=== PATIENT | male | born 1945 | race Caucasian/White ===

== ENCOUNTER 2021-12-29 20:31 | Inpatient (IN) ==
[2021-12-29] MEDS ORDERED: SODIUM CHLORIDE 0.9% 1000ML 2,000 ML IV ONE (20:53)
--- NOTE | 2021-12-29 20:59 | Emergency Department Note ---
Impression & Plan COVID-19, Acute dehydration, Atrial flutter, Generalized weakness ED Provider Note Name: MARIPOSA MERCEDES Age: 76 Sex: M Arrives Via: Walk-In Informant: Patient (poor historian), Daughter ED Provider: Nish Han MD Chief Complaint: Illness Impression: As per impressions above Medical Decision Makin-year-old gentleman with extensive cardiac history along with hypertension, dyslipidemia, hypothyroid arrives for evaluation of acute altered mental status and weakness of the last 5 days. He has been sick with Covid-like symptoms for the last 10 days in the setting of multiple family members also having Covid. Patient has not been tested for Covid as of yet. On exam patient is severely dehydrated appearing and quite somnolent/encephalopathic. IV established and fluid started along with labs, EKG, chest x-ray. Chest x-ray with questionable viral pattern throughout though not too severe. EKG is atrial flutter with a rate of around 90. This is new compared to his EKG in the [facility] system. Per daughter patient has never been in A. fib/flutter before and is not on any anticoagulation. Covid testing was positive here. Labs returned with hemoglobin 19, BUN 50s both consistent with significant dehydration as is the bicarb of 18. After 1 L of fluids patient is already starting to improve and has started answering questions better. Further fluids ordered. Without falls nor focal neurologic deficits will hold off on CT head given his improvement at this time. Given the severity of initial findings and has lab findings I do not think it would be reasonable to discharge him home especially given the new onset atrial flutter. Patient and daughter are comfortable with this plan and hospitalist was consulted for further management. He is not hypoxic and last steroids were not started. As he has been hospitalized and symptoms have been going on for least 10 days I do not feel starting monoclonal antibodies would be indicated at this time. We will hold off at this time from anticoagulation and defer to hospital service. Prior Medical Record and Triage/Nursing Notes reviewed by Me Additional history obtained from epic review and daughter Differentials:Infection, dehydration, metabolic abnormality, hypo/hyperglycemia, electrolyte disturbance, anemia, hypoxia, cardiac sources, intracerebral event, toxicologic, neurologic, as well as other pathologies. Vital Signs: reviewed and remarkable for no significant abnormalities Interventions: Normal saline bolus 2 L Labs:Reviewed and remarkable for no significant abnormalities Imagin view chest x-ray reviewed by me shows bilateral mild viral pattern without effusion nor lobar infiltrate EKG:Per My Interpretation: Indication AMS: Atrial Flutter 96 bpm, qtc 502 with PVC. No Ischemia. Compared to EKG 04/29/20 he is no longer in NSR. Cardiac/Tele Monitoring: Cardiac Monitoring: An Order was placed for continuous cardiac monitoring. The monitor shows a rate of 90 with a atrial flutter rhythm. Consults:Dr Yvonne Mccoy hospitalist Plan: Disposition:Hospitalization. Condition: Fair History of Present Illness:-year-old male arrives for general weakness. Patient has been ill for the last 10 days. This all started around the same time that the rest of his family all had Covid. Patient initially with cough, fatigue and fevers. Over the last 5 days rapid worsening of weakness, confusion, somnolence, decreased appetite, lack of energy. Associated to diffuse body aches and fatigue. He has no headache, shortness of breath, cough, fevers, abdominal pain, urinary symptoms, bowel symptoms, leg swelling, calf pain or other symptoms. Daughter notes he has been taking his medications. He has not been taking any new medication. Any exertion makes worse. Rest seems to make slightly better. Patient was vaccinated versus Covid but did not have Covid testing for this episode. He has had no falls, trauma, injuries. He denies any headache nor neck stiffness at this time. ROS: See above HPI for pertinent positives & negatives. A total of 10 systems reviewed and were otherwise negative. Past Medical History:Dyslipidemia, hypertension, GERD, hypothyroidism, CAD, BPH, carotid stenosis, urethral/prostate issues, prostate cancer Past Surgical History:Hand surgery, prostate surgery, CABG Family History:See Below Social History:See Below Home Medications:See Below Allergies:IV dye, niacin, statins Vitals:Blood Pressure: 139/93, Pulse 93, RR 21, T 36.3C, O2 97% on RA Physical Exam: GENERAL: Patient is elderly, frail, dehydrated appearing and in no acute distress. Cachectic EYES: No scleral icterus, unremarkable pupils. ENT: Mucous membranes dry, no nasal congestion. NECK: No masses appreciated, nomeningismus, trachea is midline. RESPIRATORY: No dyspnea. Clear to auscultation and equal bilaterally. No wheeze, no rhonchi. CARDIOVASCULAR: Regular rate and rhythm.No murmurs, rubs, gallops appreciated. GASTROINTESTINAL: Abdomen soft, non-tender, no peritonitis.Bowel sounds posi tive.No masses appreciated. BACK: No midline tenderness, no CVA tenderness EXTREMITIES: Normal motion all extremities, no cyanosis, no edema. NEUROLOGIC: Somnolent, slow to answer questions, severe weakness on trying to sit up. No focal weakness appreciated SKIN: Poor skin turgor, No rash, no jaundice, no diaphoresis. PSYCH: Appropriate GCS: 15 ED Course: Times/Reassessments: Patient much improved with IV fluids though still weak and tired appearing. Would no longer say he is encephalopathic but is still somewhat somnolent. Nish Han MD Past Med/Surg History Social History Smoking Status: Never smoker Preferred Language: Yi Feels Safe at Home: Yes Allergies Allergies Allergy/AdvReac Type Severity Reaction Status Date / Time niacin Allergy Mild RASH Verified 12/29/21 21:31 Iodinated Contrast Media Allergy Unknown UNKNOWN Unverified 12/29/21 21:31 atorvastatin [From Lipitor] AdvReac Unknown INTOLERANT Verified 12/29/21 23:14 Home Meds Home Medications Medication Instructions Recorded Confirmed Aspirin Enteric Coated (Ecotrin Or 81 mg PO DAILY #0 04/11/10 Generic *) Ezetimibe (Zetia) 10 mg PO DAILY #0 04/11/10 Gemfibrozil (Lopid) 1,200 mg PO DAILY #0 04/11/10 Isosorbide Mononitrate Ext Rel 120 mg PO DAILY #0 04/11/10 (Imdur Ext Rel) Metoprolol Succ (Toprol Xl) 12.5 mg PO QPM #30 04/11/10 (Toprol-Xl) Multivitamin 1 tab PO DAILY #0 04/11/10 Acetaminophen (Tylenol) 500 mg PO Q4 PRN #0 tab 12/15/13 Amlodipine (Norvasc) 5 mg PO BID #0 tab 12/15/13 CHOLECALCIFEROL (Vitamin D) 2,000 inter.unit PO DAILY #0 tab 12/15/13 Fenofibrate (Tricor) 200 mg PO DAILY #0 cap 12/15/13 Fish Oil ([place]-3) 3,000 mg PO DAILY #0 cap 12/15/13 Nitroglycerin (Nitrostat) 0.4 mg UT PRN #0 btl 12/15/13 OMEPRAZOLE (PRILOSEC) 20 mg PO DAILY #0 cap 12/15/13 COENZYME Q10 (UBIDECARENONE) 1 cap PO BID #0 09/17/16 (COQ10) Clopidogrel (Plavix) 75 mg PO DAILY #0 tab 09/17/16 Previous Rx's Medication Instructions Recorded Alirocumab (Praluent) 1 dose SC every 2 weeks 30 Days #0 08/05/16 FINASTERIDE (PROSCAR) 5 mg PO DAILY 30 Days #30 tab 08/05/16 LEVOTHYROXINE SODIUM (SYNTHROID) 75 mcg PO DAILY 30 Days #45 tab 08/05/16 Results & Data (ED) Vital Signs Vital Signs - 24 hr 12/29/21 20:35 12/29/21 21:34 12/30/21 00:36 Temperature 36.3 C L Temperature Source Temporal Artery Scan Pulse Rate 93 H Pulse Rate [Apical] 93 H 89 Pulse Rhythm Regular Pulse Rhythm [Apical] Regular Pulse Strength Normal Pulse Strength [Apical] Normal Respiratory Rate 21 18 Respiratory Effort / Characteristics Non-Labored Spontaneous Non-Labored Spontaneous Respiratory Depth Normal Normal Respiratory Pattern Regular Regular Blood Pressure 139/93 Blood Pressure [Left Arm] 143/97 H 130/96 Blood Pressure Mean 108 Blood Pressure Mean [Left Arm] 112 107 Blood Pressure Position Sitting Blood Pressure Position [Left Arm] Semi-fowlers Pulse Oximetry 97 96 97 Oxygen Delivery Method Room Air Room Air Sepsis Recent Fever Within 48 Hours No Sepsis New/Unexplained Change in Mental Status Yes Sepsis Action Taken by Nursing No Action Required Laboratory Data Result diagrams: 12/29/21 20:30 12/29/21 20:30 Lab Results 12/29/21 12/29/21 12/29/21 Range/Units 20:30 20:30 20:30 WBC 9.87 (4.8-10.8) K/uL RBC 6.14 H (4.7-6.1) M/uL Hgb 19.2 H (14.0-18.0) g/dL Hct 56.1 H (42-52) % MCV 91.4 (80-100) fL MCH 31.3 (25-34) pg MCHC 34.2 (32-36) g/dL RDW Std Deviation 48.7 H (36.4-46.3) fL RDW Coeff of Cullen 14.5 (11.5-14.5) % Plt Count 147 (130-400) K/uL MPV 13.2 H (7.4-10.4) fL Immature Gran % (Auto) 0.6 % Neut % (Auto) 66.1 % Lymph % (Auto) 22.4 % [place] % (Auto) 10.6 % Eos % (Auto) 0.1 % Baso % (Auto) 0.2 % Neut # (Auto) 6.52 H (1.4-6.5) K/uL Lymph # (Auto) 2.21 (1.2-3.4) K/uL [place] # (Auto) 1.05 H (0.11-0.59) K/uL Eos # (Auto) 0.01 (0-0.5) K/uL Baso # (Auto) 0.02 (0-0.2) K/uL Immature Gran # (Auto) 0.06 H (0.00-0.02) K/uL Platelet Estimate Decreased L (Normal) PT Cancelled INR Cancelled Sodium 142 (136-145) mmol/L Potassium 4.5 (3.5-5.1) mmol/L Chloride 107 (98-107) mmol/L Carbon Dioxide 18 L (21-32) mmol/L Anion Gap 17 H (3-11) BUN 56 H (6-23) mg/dl Creatinine 1.54 H (0.6-1.4) mg/dl Est Cr Clr Drug Dosing 36.8 ml/min Est GFR ( Amer) 49.4 ml/min Est GFR (Non-Af Amer) 42.6 ml/min BUN/Creatinine Ratio 36.4 H (10-20) Glucose 136 H (70-99(Fasting)) mg/dl POC Glucose (70-99) mg/dl Calcium 9.9 (8.5-10.1) mg/dl Magnesium 2.8 H (1.7-2.4) mg/dl Total Bilirubin 1.1 H (0.2-1.0) mg/dl Direct Bilirubin 0.3 H (0-0.2) mg/dl AST 44 H (13-39) U/L ALT 37 (7-52) U/L Alkaline Phosphatase 86 (34-104) U/L Troponin I < 0.03 (0-0.04) ng/ml Total Protein 8.2 (6.0-8.3) gm/dl Albumin 4.4 (3.4-5.0) gm/dl Lipase 63 (11-82) U/L Procalcitonin (0-0.5) ng/ml TSH (0.300-4.500) uIu/ml SARS-CoV-2, RNA, NAAT (NEGATIVE) 12/29/21 12/29/21 12/29/21 Range/Units 20:30 20:30 21:20 WBC (4.8-10.8) K/uL RBC (4.7-6.1) M/uL Hgb (14.0-18.0) g/dL Hct (42-52) % MCV (80-100) fL MCH (25-34) pg MCHC (32-36) g/dL RDW Std Deviation (36.4-46.3) fL RDW Coeff of Cullen (11.5-14.5) % Plt Count (130-400) K/uL MPV (7.4-10.4) fL Immature Gran % (Auto) % Neut % (Auto) % Lymph % (Auto) % [place] % (Auto) % Eos % (Auto) % Baso % (Auto) % Neut # (Auto) (1.4-6.5) K/uL Lymph # (Auto) (1.2-3.4) K/uL [place] # (Auto) (0.11-0.59) K/uL Eos # (Auto) (0-0.5) K/uL Baso # (Auto) (0-0.2) K/uL Immature Gran # (Auto) (0.00-0.02) K/uL Platelet Estimate (Normal) PT INR Sodium (136-145) mmol/L Potassium (3.5-5.1) mmol/L Chloride (98-107) mmol/L Carbon Dioxide (21-32) mmol/L Anion Gap (3-11) BUN (6-23) mg/dl Creatinine (0.6-1.4) mg/dl Est Cr Clr Drug Dosing ml/min Est GFR ( Amer) ml/min Est GFR (Non-Af Amer) ml/min BUN/Creatinine Ratio (10-20) Glucose (70-99(Fasting)) mg/dl POC Glucose (70-99) mg/dl Calcium (8.5-10.1) mg/dl Magnesium (1.7-2.4) mg/dl Total Bilirubin (0.2-1.0) mg/dl Direct Bilirubin (0-0.2) mg/dl AST (13-39) U/L ALT (7-52) U/L Alkaline Phosphatase (34-104) U/L Troponin I (0-0.04) ng/ml Total Protein (6.0-8.3) gm/dl Albumin (3.4-5.0) gm/dl Lipase (11-82) U/L Procalcitonin < 0.05 (0-0.5) ng/ml TSH 7.877 H (0.300-4.500) uIu/ml SARS-CoV-2, RNA, NAAT POSITIVE A* (NEGATIVE) 12/29/21 12/29/21 Range/Units 21:29 21:31 WBC (4.8-10.8) K/uL RBC (4.7-6.1) M/uL Hgb (14.0-18.0) g/dL Hct (42-52) % MCV (80-100) fL MCH (25-34) pg MCHC (32-36) g/dL RDW Std Deviation (36.4-46.3) fL RDW Coeff of Cullen (11.5-14.5) % Plt Count (130-400) K/uL MPV (7.4-10.4) fL Immature Gran % (Auto) % Neut % (Auto) % Lymph % (Auto) % [place] % (Auto) % Eos % (Auto) % Baso % (Auto) % Neut # (Auto) (1.4-6.5) K/uL Lymph # (Auto) (1.2-3.4) K/uL [place] # (Auto) (0.11-0.59) K/uL Eos # (Auto) (0-0.5) K/uL Baso # (Auto) (0-0.2) K/uL Immature Gran # (Auto) (0.00-0.02) K/uL Platelet Estimate (Normal) PT 11.0 INR 1.1 Sodium (136-145) mmol/L Potassium (3.5-5.1) mmol/L Chloride (98-107) mmol/L Carbon Dioxide (21-32) mmol/L Anion Gap (3-11) BUN (6-23) mg/dl Creatinine (0.6-1.4) mg/dl Est Cr Clr Drug Dosing ml/min Est GFR ( Amer) ml/min Est GFR (Non-Af Amer) ml/min BUN/Creatinine Ratio (10-20) Glucose (70-99(Fasting)) mg/dl POC Glucose 133 H (70-99) mg/dl Calcium (8.5-10.1) mg/dl Magnesium (1.7-2.4) mg/dl Total Bilirubin (0.2-1.0) mg/dl Direct Bilirubin (0-0.2) mg/dl AST (13-39) U/L ALT (7-52) U/L Alkaline Phosphatase (34-104) U/L Troponin I (0-0.04) ng/ml Total Protein (6.0-8.3) gm/dl Albumin (3.4-5.0) gm/dl Lipase (11-82) U/L Procalcitonin (0-0.5) ng/ml TSH (0.300-4.500) uIu/ml SARS-CoV-2, RNA, NAAT (NEGATIVE) Administered Medications Discontinued Medications Sodium Chloride (Nss 1000ml) 2,000 mls @ 999 mls/hr IV .Q2H1M ONE Stop: 12/29/21 22:53 Last Admin: 12/29/21 21:06 Dose: 999 mls/hr Documented by: [id number] Sodium Chloride (Nss 1000ml) 1,000 mls @ 999 mls/hr IV .Q1H1M ONE Stop: 12/29/21 23:24 Last Admin: 12/29/21 22:36 Dose: 999 mls/hr Documented by: [id number] Discharge Plan Visit Data Chief Complaint: Altered Mental Status Stated Complaint: NOT EATING, DISORIENTED, SLURRED SPEECH, CONFUSION ED Provider: Nish Han Discharge Problem: COVID-19, Acute dehydration, Atrial flutter, Generalized weakness Forms Stand Alone Forms: [employer] Prescriptions Prescriptions: No Action Aspirin Enteric Coated (Ecotrin Or Generic *) 81 MG ENTERIC COATED TAB 81 mg PO DAILY Qty: 0 RF: 0 Ezetimibe (Zetia) 10 MG tablet 10 mg PO DAILY Qty: 0 RF: 0 Gemfibrozil (Lopid) 600 MG tablet 1,200 mg PO DAILY Qty: 0 RF: 0 Isosorbide Mononitrate Ext Rel (Imdur Ext Rel) 60 MG EXT REL TAB 120 mg PO DAILY Qty: 0 RF: 0 Metoprolol Succ (Toprol Xl) (Toprol-Xl) 25 MG CLBRS-YKB-MAX 12.5 mg PO QPM Qty: 30 RF: 0 Multivitamin tablet 1 tab PO DAILY Qty: 0 RF: 0 Acetaminophen (Tylenol) 500 MG tablet 500 mg PO Q4 PRN (Reason: Pain or Fever) Qty: 0 RF: 0 Amlodipine (Norvasc) 5 MG tablet 5 mg PO BID Qty: 0 RF: 0 CHOLECALCIFEROL (Vitamin D) 1,000 INTER.UNIT tablet 2,000 inter.unit PO DAILY Qty: 0 RF: 0 Fenofibrate (Tricor) 200 MG capsule 200 mg PO DAILY Qty: 0 RF: 0 Fish Oil ([place]ber-3) 1 EA capsule 3,000 mg PO DAILY Qty: 0 RF: 0 Nitroglycerin (Nitrostat) 0.4 MG tablet 0.4 mg UT PRN Qty: 0 RF: 0 OMEPRAZOLE (PRILOSEC) 20 MG CONTR REL CAP 20 mg PO DAILY Qty: 0 RF: 0 LEVOTHYROXINE SODIUM (SYNTHROID) 50 MCG tablet 75 mcg PO DAILY 30 Days Qty: 45 RF: 0 FINASTERIDE (PROSCAR) 5 MG tablet 5 mg PO DAILY 30 Days Qty: 30 RF: 11 Alirocumab (Praluent) 75 MG/ML INJECTION 1 dose SC every 2 weeks 30 Days Qty: 0 RF: 0 COENZYME Q10 (UBIDECARENONE) (COQ10) 200 MG capsule 1 cap PO BID Qty: 0 RF: 0 Clopidogrel (Plavix) 75 MG tablet 75 mg PO DAILY Qty: 0 RF: 0 Referrals Referrals: Geoff Ríos MD [Physician] - Discharge Problem: Atrial flutter Qualifiers: Atrial flutter type: atypical Qualified Code(s): I48.4 - Atypical atrial flutter
[2021-12-29 21:15] LABS: Hematocrit (blood only) 56.1 % (42-52); Hemoglobin 19.2 g/dL (14.0-18.0); Mean Corpuscular Hemoglobin 31.3 pg (25-34); Mean Corpuscular Volume 91.4 fL (80-100); RDW Coefficient of Variation 14.5 % (11.5-14.5); RDW Standard Deviation 48.7 fL (36.4-46.3); Red Blood Count 6.14 M/uL (4.7-6.1); White Blood Count 9.87 K/uL (4.8-10.8)
[2021-12-29 21:26] LABS: Troponin I < 0.03 ng/ml (0-0.04)
[2021-12-29 21:29] LABS: Mean Corpuscular Hgb Conc 34.2 g/dL (32-36)
[2021-12-29 21:30] LABS: Basophils # (auto) 0.02 K/uL (0-0.2); Basophils % (auto) 0.2 %; Eosinophils # (auto) 0.01 K/uL (0-0.5); Eosinophils % (auto) 0.1 %; Immature Granulocytes # (auto) 0.06 K/uL (0.00-0.02); Immature Granulocytes % (auto) 0.6 %; Lymphocytes # (auto) 2.21 K/uL (1.2-3.4); Lymphocytes % (auto) 22.4 %; Mean Platelet Volume 13.2 fL (7.4-10.4); Monocytes # (auto) 1.05 K/uL (0.11-0.59); Monocytes % (auto) 10.6 %; Neutrophils # (auto) 6.52 K/uL (1.4-6.5); Neutrophils % (auto) 66.1 %; Platelet Count 147 K/uL (130-400); Platelet Estimate Decreased (Normal)
[2021-12-29 21:52] LABS: INR 1.1 (0.9-1.1)
[2021-12-29 21:59] LABS: Alanine Aminotransferase 37 U/L (7-52); Albumin Level 4.4 gm/dl (3.4-5.0); Alkaline Phosphatase 86 U/L (34-104); Anion Gap 17 (3-11); Aspartate Aminotransferase 44 U/L (13-39); BUN Creatinine Ratio 36.4 (10-20); Bilirubin Direct 0.3 mg/dl (0-0.2); Bilirubin,Total 1.1 mg/dl (0.2-1.0); Blood Urea Nitrogen 56 mg/dl (6-23); Calcium 9.9 mg/dl (8.5-10.1); Carbon Dioxide 18 mmol/L (21-32); Chloride 107 mmol/L (98-107); Creatinine Clr Calc Pharmacy 36.8 ml/min; Est GFR (African American) 49.4 ml/min; Est GFR (Non-African American) 42.6 ml/min; Glucose 136 mg/dl (70-99(Fasting)); Lipase 63 U/L (11-82); Magnesium 2.8 mg/dl (1.7-2.4); Potassium 4.5 mmol/L (3.5-5.1); Sodium 142 mmol/L (136-145); Total Protein 8.2 gm/dl (6.0-8.3)
[2021-12-29] MEDS ORDERED: SODIUM CHLORIDE 0.9% 1000ML 1,000 ML IV ONE (22:24)
[2021-12-29] MEDS ORDERED: LACTATED RINGER'S 1,000 ML IV ONE (23:10)
[2021-12-29] MEDS ORDERED: METOPROLOL SUCC 25MG EXT REL TAB PO STA (23:11)
[2021-12-30 00:18] LABS: Thyroid Stimulating Hormone 7.877 uIu/ml (0.300-4.500)
--- NOTE | 2021-12-30 00:20 | History & Physical Report ---
Date of Service December 30, 2021 Assessment & Plan (1) Encephalopathy: Plan: Possible underlying cognitive impairment the last few months Worsening mentation the last week secondary to ARF on CKD, clinical dehydration from COVID-19 illness Rule out UTI New onset atrial flutter secondary to illness, currently rate controlled hx CAD sp CABG and stenting, PVD hypertension, BP on the lower side hyperlipidemia, statin intolerance, on home regimen hypothyroidism, TSH slight elevated Hyperglycemia likely prediabetes, hemoglobin A1c of 5.9 from March 2017 OBS PCU for new onset atrial flutter Continue home beta-criselda for rate control IV heparin for thromboembolic prophylaxis TTE, Cardiology consult RE new onset atrial flutter Baseline UA, monitor creatinine response to IVF, hold home diuretics for now Renal ultrasound if kidney function does not improve Supportive management for patient's COVID-19 illness. Update hemoglobin A1c Review home medication list with patient once patient more coherent. PT OT eval DVT prophylaxis. IV Heparin DNR as per patient's prior wishes as per daughter, Ms. Kendy Gramajo. She requests updates from providers. [id number]. Text document was generated using [employer] voice recognition software. It may contain grammatical or spelling errors. Kindly contact undersigned for clarification of any documentation item in question. History of Present Illness Chief Complaint: Confusion Primary Care Provider: Stanford Hansen MD History obtained from patient, family, and records. Limited history from patient secondary to confusion. Medical history is significant for CAD sp CABG and stenting, PVD status post surgery, hypertension, hyperlipidemia, statin intolerance, GERD, hypothyroidism, chronic back pain sp surgery, CRI (baseline creatinine 1.3, March 2021), BPH. Patient daughter noted some decline in cognitive function the last 6 months after patient . Patient daughter wondering if patient with the beginnings of dementia. Patient has been ill the last 10 days with dry cough, fatigue, fever. Sick COVID-19 contacts at home. Patient completed COVID-19 vaccination. Poor appetite with diffuse body aches and fatigue. Patient noted to be disoriented by daughter. No slurredspeech. No arm or leg weakness. Patient brought to the ER for evaluation. Improved mentation after IV fluids administered at the ER as per daughter. MEDICAL HISTORY: As above. SURGERIES: CABG, back surgery, TURP, carotid artery stent placement, finger surgery, eye surgery FAMILY HISTORY: Hypertension. PERSONAL AND SOCIAL HISTORY: Nonsmoker, no chronic intake of alcoholic beverages. 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 Allergies Allergy/AdvReac Type Severity Reaction Status Date / Time niacin Allergy Mild RASH Verified 12/29/21 21:31 Iodinated Contrast Media Allergy Unknown UNKNOWN Unverified 12/29/21 21:31 atorvastatin [From Lipitor] AdvReac Unknown INTOLERANT Verified 12/29/21 23:14 Home Medications Medication Instructions Recorded Confirmed Type Aspirin Enteric Coated (Ecotrin Or 81 mg PO DAILY #0 04/11/10 History Generic *) Ezetimibe (Zetia) 10 mg PO DAILY #0 04/11/10 History Isosorbide Mononitrate Ext Rel 120 mg PO DAILY #0 04/11/10 History (Imdur Ext Rel) Metoprolol Succ (Toprol Xl) 12.5 mg PO QPM #30 04/11/10 History (Toprol-Xl) Multivitamin 1 tab PO DAILY #0 04/11/10 History Acetaminophen (Tylenol) 500 mg PO Q4 PRN #0 tab 12/15/13 History Amlodipine (Norvasc) 5 mg PO BID #0 tab 12/15/13 History Fenofibrate (Tricor) 200 mg PO DAILY #0 cap 12/15/13 History Fish Oil ([place]-3) 3,000 mg PO DAILY #0 cap 12/15/13 History Nitroglycerin (Nitrostat) 0.4 mg UT PRN #0 btl 12/15/13 History OMEPRAZOLE (PRILOSEC) 20 mg PO DAILY #0 cap 12/15/13 History Alirocumab (Praluent) 1 dose SC every 2 weeks 30 Days #0 08/05/16 Rx FINASTERIDE (PROSCAR) 5 mg PO DAILY 30 Days #30 tab 08/05/16 Rx LEVOTHYROXINE SODIUM (SYNTHROID) 75 mcg PO DAILY 30 Days #45 tab 08/05/16 Rx Clopidogrel (Plavix) 75 mg PO DAILY #0 tab 09/17/16 History Past Med/Surg History Social History Smoking Status: Never smoker Preferred Language: Maltese Chemical Detection Expert Required: No Beliefs That Will Affect Care: None Current Living Situation Comment: unknown Feels Safe at Home: Yes Assistive Devices: None Review of Systems Review of Systems: Could not be reliably obtained Physical Exam Physical Exam: GENERAL: Comfortable, oriented to year, slightly hard of hearing, slow to respond to questions, wane, no respiratory distress SKIN: Normal color, warm HEENT: [place] palpebral conjunctivae, no ptosis, dry buccal mucosa NECK : Supple, no tenderness CHEST : Decreased breath sounds, no tenderness HEART : RRR, no obvious murmurs ABDOMEN: Some distention, nontender EXTREMITIES : No LE swelling/tenderness, no other conspicuous deformities noted NEUROLOGIC : Oriented to year, no facial asymmetry, hard of hearing, gait and stance not assessed Results & Data Results & Data ([facility]) Vital Signs (Past 12 Hours) Vital Signs Temp Pulse Pulse Resp BP BP Pulse Ox 12/29/21 21:34 93 H 143/97 H 96 12/29/21 20:35 36.3 C L 93 H 21 139/93 97 Laboratory Results Laboratory Results WBC 9.87 K/uL (4.8-10.8) 12/29/21 20:30 RBC 6.14 M/uL (4.7-6.1) H 12/29/21 20:30 Hgb 19.2 g/dL (14.0-18.0) H 12/29/21 20:30 Hct 56.1 % (42-52) H 12/29/21 20:30 MCV 91.4 fL (80-100) 12/29/21 20:30 MCH 31.3 pg (25-34) 12/29/21 20:30 MCHC 34.2 g/dL (32-36) 12/29/21 20:30 RDW Std Deviation 48.7 fL (36.4-46.3) H 12/29/21 20:30 RDW Coeff of Cullen 14.5 % (11.5-14.5) 12/29/21 20:30 Plt Count 147 K/uL (130-400) 12/29/21 20:30 MPV 13.2 fL (7.4-10.4) H 12/29/21 20:30 Immature Gran % (Auto) 0.6 % 12/29/21 20:30 Neut % (Auto) 66.1 % 12/29/21 20:30 Lymph % (Auto) 22.4 % 12/29/21 20:30 [place] % (Auto) 10.6 % 12/29/21 20:30 Eos % (Auto) 0.1 % 12/29/21 20:30 Baso % (Auto) 0.2 % 12/29/21 20:30 Neut # (Auto) 6.52 K/uL (1.4-6.5) H 12/29/21 20:30 Lymph # (Auto) 2.21 K/uL (1.2-3.4) 12/29/21 20:30 [place] # (Auto) 1.05 K/uL (0.11-0.59) H 12/29/21 20:30 Eos # (Auto) 0.01 K/uL (0-0.5) 12/29/21 20:30 Baso # (Auto) 0.02 K/uL (0-0.2) 12/29/21 20:30 Immature Gran # (Auto) 0.06 K/uL (0.00-0.02) H 12/29/21 20:30 Platelet Estimate Decreased (Normal) L 12/29/21 20:30 PT 11.0 Seconds (9.0-12.0) 12/29/21 21:29 INR 1.1 (0.9-1.1) 12/29/21 21:29 Sodium 142 mmol/L (136-145) 12/29/21 20:30 Potassium 4.5 mmol/L (3.5-5.1) 12/29/21 20:30 Chloride 107 mmol/L (98-107) 12/29/21 20: Carbon Dioxide 18 mmol/L (21-32) L 12/29/21 20:30 Anion Gap 17 (3-11) H 12/29/21 20:30 BUN 56 mg/dl (6-23) H 12/29/21 20:30 Creatinine 1.54 mg/dl (0.6-1.4) H 12/29/21 20:30 Est Cr Clr Drug Dosing 36.8 ml/min 12/29/21 20:30 Est GFR ( Amer) 49.4 ml/min 12/29/21 20:30 Est GFR (Non-Af Amer) 42.6 ml/min 12/29/21 20:30 BUN/Creatinine Ratio 36.4 (10-20) H 12/29/21 20:30 Glucose 136 mg/dl (70-99(Fasting)) H 12/29/21 20:30 POC Glucose 133 mg/dl (70-99) H 12/29/21 21:31 Calcium 9.9 mg/dl (8.5-10.1) 12/29/21 20:30 Magnesium 2.8 mg/dl (1.7-2.4) H 12/29/21 20:30 Total Bilirubin 1.1 mg/dl (0.2-1.0) H 12/29/21 20:30 Direct Bilirubin 0.3 mg/dl (0-0.2) H 12/29/21 20:30 AST 44 U/L (13-39) H 12/29/21 20:30 ALT 37 U/L (7-52) 12/29/21 20:30 Alkaline Phosphatase 86 U/L (34-104) 12/29/21 20:30 Troponin I < 0.03 ng/ml (0-0.04) 12/29/21 20:30 Total Protein 8.2 gm/dl (6.0-8.3) 12/29/21 20:30 Albumin 4.4 gm/dl (3.4-5.0) 12/29/21 20:30 Lipase 63 U/L (11-82) 12/29/21 20:30 Procalcitonin < 0.05 ng/ml (0-0.5) 12/29/21 20:30 TSH 7.877 uIu/ml (0.300-4.500) H 12/29/21 20:30 SARS-CoV-2, RNA, NAAT POSITIVE (NEGATIVE) A* 12/29/21 21:[address] head initial read: No acute intracranial abnormality Chest x-ray as per my interpretation: Cardiomegaly, sternal wires EKG as per my interpretation : Rate 95, atrial flutter normal axis, incomplete RBBB, T wave abnormalities inferior leads, PVCs
[2021-12-30 00:59] LABS: T4 Free Thyroxine 1.14 ng/dl (0.61-1.60)
[2021-12-30 01:08] LABS: Appearance Urine Clear (Clear); Bacteria Urine Automated Negative (Negative); Bilirubin Urine Negative (Negative); Blood Urine Negative (Negative); Color Urine Dark Yellow; Glucose Urine UA Negative (Negative); Ketones Urine Trace (Negative); Leukocyte Esterase Urine Negative (Negative); Nitrite Urine Negative (Negative); Protein Urine Trace (Negative); Specific Gravity Urine 1.026 (1.000-1.030); Urobilinogen Urine Negative (Negative)
[2021-12-30 01:37] LABS: RBC Urine Automated 0-4 /hpf (0-4)
[2021-12-30] MEDS ORDERED: PROMETHAZINE HCL 6.25 MG in SODIUM CHLORIDE 0.9% 50 ML IV PRN (02:46)
[2021-12-30] MEDS ORDERED: ACETAMINOPHEN 325 MG TAB PO PRN (02:46)
[2021-12-30] MEDS ORDERED: LACTATED RINGER'S 1,000 ML IV ONE (03:00)
[2021-12-30 05:50] LABS: Partial Thromboplastin Time 25.4 Seconds (21.0-31.0)
[2021-12-30 05:51] LABS: Hemoglobin 15.5 g/dL (14.0-18.0); Mean Corpuscular Hemoglobin 31.1 pg (25-34); Mean Corpuscular Hgb Conc 33.7 g/dL (32-36); Mean Corpuscular Volume 92.4 fL (80-100); Mean Platelet Volume 12.9 fL (7.4-10.4); Platelet Count 123 K/uL (130-400); RDW Coefficient of Variation 14.5 % (11.5-14.5); RDW Standard Deviation 49.3 fL (36.4-46.3); Red Blood Count 4.98 M/uL (4.7-6.1); White Blood Count 9.46 K/uL (4.8-10.8)
[2021-12-30] MEDS ORDERED: HEPARIN SOD (PORCINE) 1000 UNIT/ML IV ONE (05:56)
[2021-12-30 06:19] LABS: Basophils # (auto) 0.01 K/uL (0-0.2); Basophils % (auto) 0.1 %; Eosinophils # (auto) 0.04 K/uL (0-0.5); Eosinophils % (auto) 0.4 %; Immature Granulocytes # (auto) 0.04 K/uL (0.00-0.02); Immature Granulocytes % (auto) 0.4 %; Lymphocytes # (auto) 2.28 K/uL (1.2-3.4); Lymphocytes % (auto) 24.1 %; Monocytes # (auto) 0.96 K/uL (0.11-0.59); Monocytes % (auto) 10.1 %; Neutrophils # (auto) 6.13 K/uL (1.4-6.5); Neutrophils % (auto) 64.9 %
[2021-12-30] MEDS: LEVOTHYROXINE SODIUM 75 MCG TABLET PO SCH (06:34)
[2021-12-30 06:40] LABS: Albumin Globulin Ratio 1.3 (0.9-2); Albumin Level 3.5 gm/dl (3.4-5.0); BUN Creatinine Ratio 42.6 (10-20); Bilirubin,Total 0.8 mg/dl (0.2-1.0); Calcium 8.5 mg/dl (8.5-10.1); Creatinine Clr Calc Pharmacy 58.8 ml/min; Est GFR (African American) 89.6 ml/min; Est GFR (Non-African American) 77.3 ml/min; Globulin 2.8 gm/dl (2.5-4.0); Total Protein 6.3 gm/dl (6.0-8.3)
[2021-12-30] MEDS: Heparin IV Adult Wt-Based Standard *NO* Bolus Protocol IV SCH ×2 (06:52→06:55)
[2021-12-30] MEDS: HEPARIN SODIUM/DEXTROSE 25,000 UNITS/500 ML BAG IV SCH (06:53)
[2021-12-30 07:41] LABS: Estimated Average Glucose 134 mg/dl; Hemoglobin A1C 6.3 % (4.5-5.6)
--- NOTE | 2021-12-30 08:03 | XRay Report ---
XR chest 1V portable CLINICAL HISTORY: covid weakness. Difficulty breathing. Evaluate cardiopulmonary status COMPARISON STUDY: 09/17/2016 TECHNIQUE: 1 view of the chest FINDINGS: Single frontal view of the chest demonstrates the heart size to be mildly enlarged status post previo us cardiothoracic surgery. The lungs are clear of alveolar opacities. There is no evidence for pleura l effusion. There is no evidence for vascular congestion. There is no acute osseous pathology. IMPRESSION: No acute cardiopulmonary disease. ACT 112: Negative or not required by law. Electronically signed by: Kashmir Blanco M.D. 12/30/2021 8:02 AM
--- NOTE | 2021-12-30 08:05 | CT Scan Report ---
CT head/brain wo con CLINICAL HISTORY: ams . Increased confusion. COMPARISON STUDY: No previous studies for comparison. CT DOSE: 853.38 mGy.cm TECHNIQUE: Standard CT of the Brain was performed without IV contrast. A dose lowering technique was utilized adhering to the principles of ALARA. FINDINGS: Extraaxial space: There is no evidence for subdural hematoma. There are no extra-axial fluid collecti ons. Ventricles and cisterns: The ventricles are mildly dilated bilaterally. There is no evidence for mid line shift or mass effect. Parenchyma: There is no subarachnoid or intraparenchymal hemorrhage. There is no evidence for an acu te infarct or cerebral edema. There is mild cerebral cortical atrophy and decreased attenuation in th e periventricular white matter representing remote small vessel disease. There are no gross mass lesi ons. Osseous structures: There is no evidence for an acute fracture. The visualized paranasal sinuses are clear. The mastoid air cells are clear bilaterally. Soft tissues: There is no evidence for focal soft tissue swelling. IMPRESSION: No acute intracerebral pathology. Cerebral cortical atrophy and remote small vessel disea se. ACT 112: Negative or not required by law. Electronically signed by: Kashmir Blanco M.D. 12/30/2021 8:04 AM
[2021-12-30] MEDS ORDERED: METOPROLOL SUCC 25MG EXT REL TAB PO SCH (09:00)
--- NOTE | 2021-12-30 09:26 | Electrocardiogram Report ---
Test Reason : Blood Pressure : / mmHG Vent. Rate : 096 BPM Atrial Rate : 278 BPM P-R Int : 000 ms QRS Dur : 094 ms QT Int : 398 ms P-R-T Axes : 268 010 -73 degrees QTc Int : 502 ms Poor data quality, interpretation may be adversely affected Atrial flutter with variable A-V block with premature ventricular or aberrantly conducted complexes Incomplete right bundle branch block Possible Anteroseptal infarct , age undetermined Prolonged QT Abnormal ECG When compared with ECG of 18-SEP-2016 07:29, Significant changes have occurred Confirmed by Tima Calderon ([id number]) on 12/30/2021 9:26:18 AM Referred By: REFERRED SELF Confirmed By:Tima Calderon
[2021-12-30] MEDS: PANTOprazole 40 MG TAB PO SCH (10:16)
[2021-12-30] MEDS: MULTIVITAMIN TAB PO SCH (10:16)
[2021-12-30] MEDS: METOPROLOL SUCC 25MG EXT REL TAB PO SCH ×2 (10:17→20:52)
[2021-12-30] MEDS: FINASTERIDE 5 MG TAB PO SCH (10:17)
[2021-12-30] MEDS: amLODIPine BESYLATE 5 MG TAB PO SCH ×2 (10:17→20:51)
[2021-12-30] MEDS: ISOSORBIDE MONO EXTENDED REL 60 MG TABCR PO SCH (10:17)
[2021-12-30] MEDS: ASPIRIN 81 MG ECTAB PO SCH (10:17)
[2021-12-30] MEDS: CLOPIDOGREL BISULFATE 75 MG TAB PO SCH (10:18)
[2021-12-30] MEDS: EZETIMIBE 10 MG TABLET PO SCH (10:18)
[2021-12-30 12:23] LABS: Partial Thromboplastin Ratio 1.9
[2021-12-30 12:31] LABS: Partial Thromboplastin Time 48.7 Seconds (21.0-31.0)
--- NOTE | 2021-12-30 12:31 | Cardiology Consultation ---
Date of Consultation December 30, 2021 Assessment & Plan (1) Atrial flutter: (2) COVID-19: (3) Acute dehydration: (4) Encephalopathy: (5) CAD (coronary artery disease): (6) Renal artery stenosis: (7) Carotid stenosis, right: Cardiovascularly complex 76-year-old male presents with symptomatic COVID- 19 infection in the setting of worsening mental status. Patient is fully vaccinated. New onset atrial flutter, rate controlled. Atrial arrhythmias are very common in the setting of acute COVID-19 infection. He is rate controlled and will be continued on his current dose of metoprolol, consideration can be given to addition of Cardizem drip for rate control if necessary. Continue IV heparin anticoagulation, at this point it is doubtful that the patient will be a long-term anticoagulation candidate. We will hold off on echocardiogram at this time given the unlikelihood that it would change medical therapies. History of Present Illness Reason for Consultation: new onset atrial flutter Requesting Physician: Dr. Cardoza Attending Physician: Brooke Carney MD History of Present Illness History obtained through review of medical records and discussion with nursing. Patient remains confused. Upon presentation the patient's daughter states that he has been ill for the last 10 days with a dry cough, fever and fatigue. Patient is fully vaccinated but did have sick contacts at home. Also noted declining mental status over the last 6 months after the passing of his . No cardiac complaints verbalized. Past medical history as per most recent outpatient cardiology clinic note: 1.Longstanding ischemic heart disease, status post inferior myocardial infarction, September 1995. 2.Status post coronary bypass grafting x3 in 1996, receiving a SHELLEY graft to the LAD, a saphenous vein graft to the obtuse marginal, saphenous vein graft to the ramus intermedius for diffuse disease. 3.Coronary intervention in August 2000, mid right coronary artery, and subsequent distal right coronary artery in 2000. 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 5.Class 2 stable angina pectoris, stable. 6.Marked / familial hyperlipidemia on Praluent 7.Diabetes mellitus managed with diet and exercise 8.Status post right carotid stenting for high-grade obstruction February 2012. 9.Acute coronary syndrome 09/18/2016 and subsequent referral to [facility] and cardiac catheterization, with resultant drug-eluting stent to the right coronary artery for complex proximal vessel disease with good result. Allergies Allergy/AdvReac Type Severity Reaction Status Date / Time niacin Allergy Mild RASH Verified 12/29/21 21:31 Iodinated Contrast Media Allergy Unknown UNKNOWN Unverified 12/29/21 21:31 atorvastatin [From Lipitor] AdvReac Unknown INTOLERANT Verified 12/29/21 23:14 Home Medications Medication Instructions Recorded Confirmed Type Aspirin Enteric Coated (Ecotrin Or 81 mg PO DAILY #0 04/11/10 History Generic *) Ezetimibe (Zetia) 10 mg PO DAILY #0 04/11/10 History Isosorbide Mononitrate Ext Rel 120 mg PO DAILY #0 04/11/10 History (Imdur Ext Rel) Metoprolol Succ (Toprol Xl) 12.5 mg PO QPM #30 04/11/10 History (Toprol-Xl) Multivitamin 1 tab PO DAILY #0 04/11/10 History Acetaminophen (Tylenol) 500 mg PO Q4 PRN #0 tab 12/15/13 History Amlodipine (Norvasc) 5 mg PO BID #0 tab 12/15/13 History Fenofibrate (Tricor) 200 mg PO DAILY #0 cap 12/15/13 History Fish Oil ([place]-3) 3,000 mg PO DAILY #0 cap 12/15/13 History Nitroglycerin (Nitrostat) 0.4 mg UT PRN #0 btl 12/15/13 History OMEPRAZOLE (PRILOSEC) 20 mg PO DAILY #0 cap 12/15/13 History Alirocumab (Praluent) 1 dose SC every 2 weeks 30 Days #0 08/05/16 Rx FINASTERIDE (PROSCAR) 5 mg PO DAILY 30 Days #30 tab 08/05/16 Rx LEVOTHYROXINE SODIUM (SYNTHROID) 75 mcg PO DAILY 30 Days #45 tab 08/05/16 Rx Clopidogrel (Plavix) 75 mg PO DAILY #0 tab 09/17/16 History Patient History Social History Smoking Status: Never smoker 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
--- NOTE | 2021-12-30 16:28 | Electrocardiogram Report ---
Test Reason : Blood Pressure : / mmHG Vent. Rate : 092 BPM Atrial Rate : 286 BPM P-R Int : 000 ms QRS Dur : 086 ms QT Int : 362 ms P-R-T Axes : 259 030 -51 degrees QTc Int : 447 ms Atrial flutter with variable A-V block with premature ventricular or aberrantly conducted complexes Septal infarct (cited on or before 05-AUG-2016) Cannot rule out Inferior infarct , age undetermined Abnormal ECG When compared with ECG of 29-DEC-2021 21:04, Incomplete right bundle branch block is no longer Present Questionable change in initial forces of Anterior leads Confirmed by Tima Calderon ([id number]) on 12/30/2021 4:28:15 PM Referred By: REFERRED SELF Confirmed By:Tima Calderon
--- NOTE | 2021-12-30 19:48 | Communication Note ---
Date of Service: December 30, 2021 Patient was seen and examined for follow-up of COVID-19 and atrial flutter. Lying in bed no acute distress. Saturating well on room air. pvc monitor showed heart rate has been in the 90s. Cardiology on board. Continue IV heparin drip for now while inpatient, that seems to be good candidate for long- term anticoagulation as per cardiology. Continue metoprolol and isosorbide mononitrate for now; but if rate uncontrolled, will consider to start on Cardizem drip. Does not meet criteria for dexamethasone and remdesivir therapy since patient is saturated well on RA. Continue monitor closely in PCU. MD Rommel
[2021-12-31] MEDS: HEPARIN SODIUM/DEXTROSE 25,000 UNITS/500 ML BAG IV SCH (03:29)
[2021-12-31] MEDS: LEVOTHYROXINE SODIUM 75 MCG TABLET PO SCH (06:26)
[2021-12-31 08:18] LABS: Partial Thromboplastin Ratio 3.9
[2021-12-31 08:33] LABS: Partial Thromboplastin Time 102.7 Seconds (21.0-31.0)
[2021-12-31] MEDS ORDERED: FENOFIBRATE NANOCRYSTALLIZED 145 MG TABLET PO SCH (09:00)
[2021-12-31 10:02] LABS: BUN Creatinine Ratio 25.6 (10-20); Calcium 8.4 mg/dl (8.5-10.1); Creatinine Clr Calc Pharmacy 72.2 ml/min; Est GFR (African American) 100.2 ml/min; Est GFR (Non-African American) 86.5 ml/min; Potassium 3.6 mmol/L (3.5-5.1)
[2021-12-31] MEDS: amLODIPine BESYLATE 5 MG TAB PO SCH ×2 (10:21→21:11)
[2021-12-31] MEDS: METOPROLOL SUCC 25MG EXT REL TAB PO SCH (10:21)
[2021-12-31] MEDS: FINASTERIDE 5 MG TAB PO SCH (10:22)
[2021-12-31] MEDS: MULTIVITAMIN TAB PO SCH (10:22)
[2021-12-31] MEDS: PANTOprazole 40 MG TAB PO SCH (10:22)
[2021-12-31] MEDS: ISOSORBIDE MONO EXTENDED REL 60 MG TABCR PO SCH (10:22)
[2021-12-31] MEDS: ASPIRIN 81 MG ECTAB PO SCH (10:23)
[2021-12-31] MEDS: EZETIMIBE 10 MG TABLET PO SCH (10:23)
[2021-12-31] MEDS: CLOPIDOGREL BISULFATE 75 MG TAB PO SCH (10:23)
[2021-12-31 10:29] LABS: Basophils # (auto) 0.01 K/uL (0-0.2); Basophils % (auto) 0.1 %; Echinocytes 1+; Eosinophils # (auto) 0.09 K/uL (0-0.5); Hematocrit (blood only) 42.4 % (42-52); Hemoglobin 14.1 g/dL (14.0-18.0); Immature Granulocytes # (auto) 0.02 K/uL (0.00-0.02); Immature Granulocytes % (auto) 0.2 %; Lymphocytes # (auto) 1.93 K/uL (1.2-3.4); Lymphocytes % (auto) 20.6 %; Mean Corpuscular Hemoglobin 30.7 pg (25-34); Mean Corpuscular Hgb Conc 33.3 g/dL (32-36); Mean Corpuscular Volume 92.4 fL (80-100); Mean Platelet Volume 14.3 fL (7.4-10.4); Monocytes # (auto) 0.94 K/uL (0.11-0.59); Neutrophils # (auto) 6.37 K/uL (1.4-6.5); Neutrophils % (auto) 68.1 %; Platelet Count 129 K/uL (130-400); Platelet Estimate Decreased (Normal); RDW Coefficient of Variation 14.5 % (11.5-14.5); Red Blood Count 4.59 M/uL (4.7-6.1); White Blood Count 9.36 K/uL (4.8-10.8)
--- NOTE | 2021-12-31 12:01 | Cardiology Progress Note ---
Date of Service December 31, 2021 Assessment & Plan (1) Atrial flutter: (2) COVID-19: (3) Acute dehydration: (4) Encephalopathy: (5) CAD (coronary artery disease): (6) Renal artery stenosis: (7) Carotid stenosis, right: Plan: Cardiovascularly complex 76-year-old male presents with symptomatic COVID-19 infection in the setting of worsening mental status. Patient is fully vaccinated. New onset atrial flutter, rate controlled. Atrial arrhythmias are very common in the setting of acute COVID-19 infection. Continue IV heparin anticoagulation, at this point it is doubtful that the patient will be a long-term anticoagulation candidate. Given the newly found sinus pauses metoprolol will need to be held at this time. Obviously, the concern is for tachybradycardia syndrome but given his active COVID-19 infection pacemaker placement would not be indicated at this time Continue to monitor on telemetry Admission and Anticipated Discharge Date Admission Date: December 31, 2021 Subjective Chart reviewed. Telemetry reviewed: Rate controlled a flutter now with multiple 3-second pauses this a.m., reportedly asymptomatic Results & Data ([facility]) Vital Signs (Past 12 Hours) Vital Signs Temp Pulse Resp BP Pulse Ox 12/31/21 11:32 36.4 C L 90 20 105/66 96 12/31/21 07:40 36.4 C L 90 18 106/69 96 12/31/21 03:28 36.6 C 79 20 138/75 96 (1) Atrial flutter Atrial flutter type: atypical Qualified Code(s): I48.4 - Atypical atrial flutter
[2021-12-31] MEDS: FENOFIBRATE NANOCRYSTALLIZED 145 MG TABLET PO SCH (13:19)
--- NOTE | 2021-12-31 17:45 | Hospitalist Progress Note ---
Date of Service December 31, 2021 Assessment & Plan (1) Encephalopathy: Plan: Possible underlying cognitive impairment the last few months Worsening mentation the last week secondary to ARF on CKD, COVID-19 Infection - CT head: No acute intracerebral pathology. Cerebral cortical atrophy and remote small vessel disease. - oriented x 2 with some cues answers most questions appropriately gets confused occasionally per RN, does not need 1:1 as of right now, bed alarms on per RN - on room air, O2 sat > 94% CXR: no signs of pneumonia - crea improved, back to baseline continue to monitor - monitor closely New onset atrial flutter secondary to illness, currently rate controlled - (+) 3 sec pauses noted - Metoprolol held - Heparin IV continued but not a vehicle trimmer candidate for anticoagulation hx CAD sp CABG and stenting, PVD - continue ASA and Plavix hypertension, BP on the lower side hyperlipidemia, statin intolerance, on home regimen hypothyroidism, TSH slight elevated Hyperglycemia likely prediabetes, hemoglobin A1c of 5.9 from March 2017 - a1c 6.3 PT OT eval DVT prophylaxis. IV Heparin DNR as per patient's prior wishes as per daughter, Ms. Kendy Gramajo. Admission and Anticipated Discharge Date Admission Date: December 31, 2021 Subjective ff up for COVID 19 infection, atrial flutter etc seen resting in chair , comfortable states he feels fine overall oriented x 2, occasional needs cues, somewhat slow to respond denies cough, dyspnea, chest pain, palpitations, dizziness no abdominal pain ,nausea/vomiting no other symptoms Review of Systems Review of Systems: all noted and negative except for above Physical Exam Physical Exam: General- oriented x 2, not in distress, speaks in sentences with no effort or accessory muscle use Head- atraumatic Eyes- PERRL, EOMI, anicteric ENT- oropharynx clear Neck- supple, no JVD, no adenopathy, no thyromegaly; carotids +2/2, no bruits appreciated Lungs- clear to auscultation bilaterally, no rales/wheezes Heart- normal rate, irregularly regular rhythm; no murmur, no gallop, no rub appreciated Abdomen- normal bowel sounds, nondistended, soft, nontender, no masses or hepatosplenomegaly Extremities- no pretibial edema, no calf tenderness; peripheral pulses intact Neuro- alert, oriented x 2; CN 2-12 grossly intact; motor 5/5 bila terally;sensation 100% on all extremities; no other gross focal neurologic deficits Skin- warm & dry Results & Data Results & Data ([facility]) Vital Signs (Past 12 Hours) Vital Signs Temp Pulse Resp BP Pulse Ox 12/31/21 15:33 36.3 C L 92 H 18 95/59 L 96 12/31/21 11:32 36.4 C L 90 20 105/66 96 12/31/21 07:40 36.4 C L 90 18 106/69 96 all noted and reviewed including below
[2021-12-31 18:38] LABS: Partial Thromboplastin Ratio 2.5
[2021-12-31 18:44] LABS: Partial Thromboplastin Time 66.1 Seconds (21.0-31.0)
[2022-01-01] MEDS: HEPARIN SODIUM/DEXTROSE 25,000 UNITS/500 ML BAG IV SCH (05:35)
[2022-01-01] MEDS: LEVOTHYROXINE SODIUM 75 MCG TABLET PO SCH (05:36)
[2022-01-01 06:33] LABS: Partial Thromboplastin Ratio 1.7
[2022-01-01 06:39] LABS: BUN Creatinine Ratio 16.7 (10-20); Calcium 8.2 mg/dl (8.5-10.1); Est GFR (African American) 107.3 ml/min; Est GFR (Non-African American) 92.6 ml/min; Potassium 3.2 mmol/L (3.5-5.1)
[2022-01-01] MEDS: FENOFIBRATE NANOCRYSTALLIZED 145 MG TABLET PO SCH (08:14)
[2022-01-01] MEDS: ISOSORBIDE MONO EXTENDED REL 60 MG TABCR PO SCH (08:14)
[2022-01-01] MEDS: CLOPIDOGREL BISULFATE 75 MG TAB PO SCH (08:14)
[2022-01-01] MEDS: FINASTERIDE 5 MG TAB PO SCH (08:14)
[2022-01-01] MEDS: ASPIRIN 81 MG ECTAB PO SCH (08:14)
[2022-01-01] MEDS: PANTOprazole 40 MG TAB PO SCH (08:15)
[2022-01-01] MEDS: EZETIMIBE 10 MG TABLET PO SCH (08:15)
[2022-01-01] MEDS: MULTIVITAMIN TAB PO SCH (08:15)
[2022-01-01] MEDS ORDERED: POTASSIUM CHLORIDE CRTAB 20 MEQ TABCR PO STA (08:42)
--- NOTE | 2022-01-01 12:30 | Cardiology Progress Note ---
Date of Service January 01, 2022 Assessment & Plan (1) Atrial flutter: (2) COVID-19: (3) Acute dehydration: (4) Encephalopathy: (5) CAD (coronary artery disease): (6) Renal artery stenosis: (7) Carotid stenosis, right: Plan: Cardiovascularly complex 76-year-old male presents with symptomatic COVID-19 infection in the setting of worsening mental status. Patient is fully vaccinated. New onset atrial flutter, rate controlled. Atrial arrhythmias are very common in the setting of acute COVID-19 infection. Continue IV heparin anticoagulation, at this point it is doubtful that the patient will be a long-term anticoagulation candidate. Still with asymptomatic sinus pauses despite beta-criselda being held. Obviously, the concern is for tachybradycardia syndrome but given his active COVID-19 infection pacemaker placement would not be indicated at this time Should any significant bradycardia arrhythmias occur would recommend dopamine infusion Continue to monitor on telemetry Admission and Anticipated Discharge Date Admission Date: December 31, 2021 Subjective Chart reviewed. Telemetry reviewed: Atrial flutter rate controlled with continued sinus pauses up to 3.8 seconds today Results & Data ([facility]) Vital Signs (Past 12 Hours) Vital Signs Temp Pulse Resp BP Pulse Ox 01/01/22 11:29 36.8 C 91 H 19 95/52 L 97 01/01/22 08:39 36.8 C 88 18 97/57 L 97 01/01/22 03:47 36.6 C 83 18 107/60 93 (1) Atrial flutter Atrial flutter type: atypical Qualified Code(s): I48.4 - Atypical atrial flut ter
[2022-01-01] MEDS: POTASSIUM CHLORIDE CRTAB 20 MEQ TABCR PO SCH ×2 (12:58→19:54)
--- NOTE | 2022-01-01 17:29 | Hospitalist Progress Note ---
Date of Service January 01, 2022 Assessment & Plan (1) Encephalopathy: Plan: Metabolic encephalopathy Possible underlying cognitive impairment the last few months Worsening mentation the last week secondary to ARF on CKD, COVID-19 Infection - [address] head: No acute intracerebral pathology. Cerebral cortical atrophy and remote small vessel disease. 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 IV Heparin DNR as per patient's prior wishes as per daughter, Ms. Kendy Gramajo. Admission and Anticipated Discharge Date Admission Date: December 31, 2021 Subjective ff up for COVID 19 infection, Atrial flutter, etc seen resting in bedside chair, comfortable states he feels fine overall oriented x2, but seems to be confused states he feels fine overall denies chest pain, dyspnea, palpitations, dizziness no other symptoms no other issues per compensator worker of Systems Review of Systems: all noted and negative except for above Physical Exam Physical Exam: General- oriented x 2, not in distress, speaks in sentences with no effort or accessory muscle use Eyes- anicteric Neck- no JVD Lungs- clear breath sounds bilaterally, no rales/wheezes Heart- normal rate,irregularly irregular rhythm; no murmurs Abdomen- normal bowel sounds, nondistended, soft, nontender Extremities- no pretibial edema, no calf tenderness Neuro- alert, oriented x 3; no gross focal neurologic deficits Skin- warm & dry Results & Data Results & Data ([facility]) Vital Signs (Past 12 Hours) Vital Signs Temp Pulse Resp BP Pulse Ox 01/01/22 15:10 37.0 C 73 19 108/60 96 01/01/22 11:29 36.8 C 91 H 19 95/52 L 97 01/01/22 08:39 36.8 C 88 18 97/57 L 97 all noted and reviewed including below
[2022-01-01 23:42] LABS: Appearance Urine Clear (Clear); Bacteria Urine Automated Negative (Negative); Bilirubin Urine Negative (Negative); Blood Urine 2+ (Negative); Cast Urine Automated 0 /lpf (0-5); Color Urine Yellow; Glucose Urine UA Negative (Negative); Ketones Urine Negative (Negative); Leukocyte Esterase Urine Trace (Negative); Nitrite Urine Negative (Negative); Protein Urine Negative (Negative); RBC Urine Automated 0-4 /hpf (0-4); Specific Gravity Urine 1.003 (1.000-1.030); Urobilinogen Urine Positive (Negative)
[2022-01-02] MEDS: PHENAZOPYRIDINE HCL 100 MG TAB PO PRN ×2 (04:16→20:34)
[2022-01-02] MEDS: LEVOTHYROXINE SODIUM 75 MCG TABLET PO SCH (06:10)
[2022-01-02 06:12] LABS: Partial Thromboplastin Ratio 2.5
[2022-01-02 06:13] LABS: Partial Thromboplastin Time 64.8 Seconds (21.0-31.0)
[2022-01-02 06:27] LABS: BUN Creatinine Ratio 17.9 (10-20); Calcium 8.7 mg/dl (8.5-10.1); Creatinine Clr Calc Pharmacy 83.5 ml/min; Est GFR (African American) 106.7 ml/min; Potassium 3.8 mmol/L (3.5-5.1)
[2022-01-02] MEDS: MULTIVITAMIN TAB PO SCH (09:31)
[2022-01-02] MEDS: POTASSIUM CHLORIDE CRTAB 20 MEQ TABCR PO SCH (09:31)
[2022-01-02] MEDS: EZETIMIBE 10 MG TABLET PO SCH (09:31)
[2022-01-02] MEDS: FENOFIBRATE NANOCRYSTALLIZED 145 MG TABLET PO SCH (09:31)
[2022-01-02] MEDS: PANTOprazole 40 MG TAB PO SCH (09:32)
[2022-01-02] MEDS: ISOSORBIDE MONO EXTENDED REL 60 MG TABCR PO SCH (09:32)
[2022-01-02] MEDS: FINASTERIDE 5 MG TAB PO SCH (09:32)
[2022-01-02] MEDS: ASPIRIN 81 MG ECTAB PO SCH (09:32)
[2022-01-02] MEDS: CLOPIDOGREL BISULFATE 75 MG TAB PO SCH (09:32)
[2022-01-02] MEDS: HEPARIN SODIUM/DEXTROSE 25,000 UNITS/500 ML BAG IV SCH (09:47)
--- NOTE | 2022-01-02 11:20 | Cardiology Progress Note ---
Date of Service January 02, 2022 Assessment & Plan (1) Atrial flutter: (2) COVID-19: (3) Acute dehydration: (4) Encephalopathy: (5) CAD (coronary artery disease): (6) Renal artery stenosis: (7) Carotid stenosis, right: Plan: Cardiovascularly complex 76-year-old male presents with symptomatic COVID-19 infection in the setting of worsening mental status. Patient is fully vaccinated. New onset atrial flutter, rate controlled. Atrial arrhythmias are very common in the setting of acute COVID-19 infection. Continue IV heparin anticoagulation, at this point it is doubtful that the patient will be a long-term anticoagulation candidate. No further sinus pauses Obviously, the concern is for tachybradycardia syndrome but given his active COVID-19 infection pacemaker placement would not be indicated at this time Should any significant bradycardia arrhythmias occur would recommend dopamine infusion Continue to monitor on telemetry Admission and Anticipated Discharge Date Admission Date: December 31, 2021 Subjective Chart reviewed. Telemetry reviewed: Atrial flutter without further sinus pauses Results & Data ([facility]) Vital Signs (Past 12 Hours) Vital Signs Temp Pulse Pulse Resp BP Pulse Ox Pulse Ox 01/02/22 07:17 36.9 C 65 19 108/60 97 01/02/22 02:42 36.6 C 95 H 20 117/70 97 01/02/22 02:30 94 H 01/02/22 02:00 96 01/01/22 23:29 36.8 C 93 H 15 113/58 L 95 (1) Atrial flutter Atrial flutter type: atypical Qualified Code(s): I48.4 - Atypical atrial flutter
--- NOTE | 2022-01-02 15:04 | Hospitalist Progress Note ---
Date of Service January 02, 2022 Assessment & Plan (1) Encephalopathy: Plan: Metabolic encephalopathy Likely secondary to secondary to acute renal failure on CKD, COVID-19 Infection Possible underlying cognitive impairment the last few months - CT head: No acute intracerebral pathology. Cerebral cortical atrophy and remote small vessel disease. - oriented x 2 with some cues answers most questions appropriately gets confused occasionally per RN, does not need 1:1 as of right now, bed alarms on per RN - on room air, O2 sat 96-97% Respiratory status remains stable CXR: no signs of pneumonia - crea improved, back to baseline -Patient remains pleasantly confused Delirium prevention strategies Discussed with RN New onset atrial flutter - (+) 3 sec pauses noted December 31 - Metoprolol held - No pauses noted today Heart rate in the 90s - Heparin IV continued but not a terminal operations manager candidate for anticoagulation CAD s/p CABG and stenting, PVD - continue ASA and Plavix Hypertension - BP on the lower side Dyslipidemia - statin intolerance -Continue fenofibrate Hypothyroidism - TSH slight elevated 7.8 Free T4 1.1 -Continue levothyroxine 75 mcg daily Pre DM - hemoglobin A1c of 5.9 from March 2017 - a1c 6.3 PT OT eval: recommend 24/ care DVT prophylaxis. IV Heparin DNR as per patient's prior wishes as per daughter, Ms. Kendy Gramajo. Pending patient needs to transition to SNF Admission and Anticipated Discharge Date Admission Date: December 31, 2021 Subjective Follow-up for COVID-19 infection, atrial fibrillation, etc. Events overnight noted Patient reporting bladder pain, bladder scan revealing 750 cc, unable to straight cath patient Fortunately patient voiding this morning with no problems Also was more confused overnight Seen sitting up in bedside chair, watching TV, calm, cooperative, pleasantly confused Oriented to person and place but appears to be mostly confused Denies shortness of breath, cough, chest pain, palpitations, dizziness No leg pain Denies dysuria, or any other urinary symptoms, bladder pain No other symptoms Review of Systems Review of Systems: all noted and negative except for above Physical Exam Physical Exam: General- oriented x 1-2, not in distress, speaks in sentences with no effort or accessory muscle use Eyes- anicteric Neck- no JVD Lungs- clear breath sounds, no crackles or wheezing bilaterally Heart- normal rate, regular rhythm; no murmurs Abdomen- normal bowel sounds, nondistended, soft, no tenderness Extremities- no pretibial edema, no calf tenderness Neuro- alert, oriented x 1-2; mostly confused, no gross focal neurologic deficits Skin- warm & dry Results & Data Results & Data ([facility]) Vital Signs (Past 12 Hours) Vital Signs Temp Pulse Resp BP Pulse Ox 01/02/22 11:22 37.1 C 86 18 99/65 L 97 01/02/22 07:17 36.9 C 65 19 108/60 97 all noted and reviewed including below
[2022-01-03] MEDS: LEVOTHYROXINE SODIUM 75 MCG TABLET PO SCH (06:00)
[2022-01-03 06:56] LABS: BUN Creatinine Ratio 13.4 (10-20); Calcium 9.3 mg/dl (8.5-10.1); Creatinine Clr Calc Pharmacy 71.1 ml/min; Est GFR (African American) 98.2 ml/min; Est GFR (Non-African American) 84.7 ml/min; Potassium 3.8 mmol/L (3.5-5.1)
[2022-01-03 07:37] LABS: Partial Thromboplastin Ratio 1.8
[2022-01-03 07:39] LABS: Partial Thromboplastin Time 46.2 Seconds (21.0-31.0)
[2022-01-03] MEDS: MULTIVITAMIN TAB PO SCH (09:30)
[2022-01-03] MEDS: EZETIMIBE 10 MG TABLET PO SCH (09:30)
[2022-01-03] MEDS: ASPIRIN 81 MG ECTAB PO SCH (09:30)
[2022-01-03] MEDS: PANTOprazole 40 MG TAB PO SCH (09:31)
[2022-01-03] MEDS: POTASSIUM CHLORIDE CRTAB 20 MEQ TABCR PO SCH (09:31)
[2022-01-03] MEDS: FINASTERIDE 5 MG TAB PO SCH (09:31)
[2022-01-03] MEDS: ISOSORBIDE MONO EXTENDED REL 60 MG TABCR PO SCH (09:31)
[2022-01-03] MEDS: CLOPIDOGREL BISULFATE 75 MG TAB PO SCH (09:31)
[2022-01-03] MEDS: PHENAZOPYRIDINE HCL 100 MG TAB PO PRN ×2 (09:32→21:16)
[2022-01-03] MEDS: FENOFIBRATE NANOCRYSTALLIZED 145 MG TABLET PO SCH (09:33)
[2022-01-03] MEDS: HEPARIN SODIUM/DEXTROSE 25,000 UNITS/500 ML BAG IV SCH (13:30)
--- NOTE | 2022-01-03 17:00 | Hospitalist Progress Note ---
Date of Service January 03, 2022 Assessment & Plan (1) Encephalopathy: Plan: Metabolic encephalopathy Likely secondary to secondary to acute renal failure on CKD, COVID-19 Infection Possible underlying cognitive impairment - CT head: No acute intracerebral pathology. Cerebral cortical atrophy and remote small vessel disease. - oriented x 1-2 with some cues answers most questions appropriately gets confused occasionally per RN, does not need 1:1 as of right now, bed alarms on per RN - on room air, O2 sat 96-97% Respiratory status remains stable CXR: no signs of pneumonia - crea improved, back to baseline - Patient remains pleasantly confused, easily redirected per RN Delirium prevention strategies Discussed with RN New onset atrial flutter - (+) 3 sec pauses noted December 31- - Metoprolol held - No pauses noted x 2 days Heart rate controlled - Heparin IV continued but not a roasterman candidate for anticoagulation CAD s/p CABG and stenting, PVD - continue ASA and Plavix Hypertension - BP ok Dyslipidemia - statin intolerance - Continue fenofibrate Hypothyroidism - TSH slight elevated 7.8 Free T4 1.1 -Continue levothyroxine 75 mcg daily Pre DM - hemoglobin A1c of 5.9 from March 2017 - a1c 6.3 PT/OT eval: recommend 24/ care DVT prophylaxis. IV Heparin DNR as per patient's prior wishes as per daughter, Ms. Kendy Gramajo. Pending patient needs to transition to SNF Admission and Anticipated Discharge Date Admission Date: December 31, 2021 Subjective ff up for fibrillation, COVID-19 infection, etc. Resting in bed, comfortable, on room air Not in distress States he feels fine overall No shortness of breath, cough, chest pain, potation's, dizziness, leg pain Denies other symptoms A flutter, rate controlled, no pauses per desk clerks supervisor Review of Systems Review of Systems: all noted and negative except for above Physical Exam Physical Exam: General- oriented x 1-2, not in distress, speaks in sentences with no effort or accessory muscle use Eyes- anicteric Neck- no JVD Lungs- clear BS BL Heart- normal rate, irregularly irregular rhythm; no murmurs Abdomen- normal bowel sounds, nondistended, soft, nontender Extremities- no pretibial edema, no calf tenderness Neuro- alert, oriented x 3; no gross focal neurologic deficits Skin- warm & dry Results & Data Results & Data ([facility]) Vital Signs (Past 12 Hours) Vital Signs Temp Pulse Pulse Resp BP Pulse Ox 01/03/22 15:32 36.8 C 56 L 18 124/66 96 01/03/22 11:33 36.5 C 98 H 19 109/69 95 01/03/22 08:59 56 L 01/03/22 07:59 36.6 C 75 18 109/72 95 01/03/22 07:00 36.6 C 85 16 127/82 97 all noted and reviewed including below
[2022-01-03] MEDS: TAMSULOSIN HCL 0.4 MG CAP PO SCH (19:58)
[2022-01-04] MEDS: LEVOTHYROXINE SODIUM 75 MCG TABLET PO SCH (06:06)
[2022-01-04 06:31] LABS: BUN Creatinine Ratio 14.7 (10-20); Calcium 9.2 mg/dl (8.5-10.1); Creatinine Clr Calc Pharmacy 61.7 ml/min; Est GFR (African American) 88.5 ml/min; Est GFR (Non-African American) 76.4 ml/min; Potassium 3.8 mmol/L (3.5-5.1)
[2022-01-04 06:34] LABS: Partial Thromboplastin Ratio 1.8
[2022-01-04] MEDS: POTASSIUM CHLORIDE CRTAB 20 MEQ TABCR PO SCH (08:21)
[2022-01-04] MEDS: MULTIVITAMIN TAB PO SCH (08:21)
[2022-01-04] MEDS: PHENAZOPYRIDINE HCL 100 MG TAB PO PRN (08:21)
[2022-01-04] MEDS: EZETIMIBE 10 MG TABLET PO SCH (08:21)
[2022-01-04] MEDS: ASPIRIN 81 MG ECTAB PO SCH (08:21)
[2022-01-04] MEDS: PANTOprazole 40 MG TAB PO SCH (08:21)
[2022-01-04] MEDS: FINASTERIDE 5 MG TAB PO SCH (08:21)
[2022-01-04] MEDS: ISOSORBIDE MONO EXTENDED REL 60 MG TABCR PO SCH (08:22)
[2022-01-04] MEDS: CLOPIDOGREL BISULFATE 75 MG TAB PO SCH (08:22)
[2022-01-04] MEDS: FENOFIBRATE NANOCRYSTALLIZED 145 MG TABLET PO SCH (08:22)
[2022-01-04] MEDS: HEPARIN SODIUM/DEXTROSE 25,000 UNITS/500 ML BAG IV SCH ×2 (16:00→16:44)
--- NOTE | 2022-01-04 18:05 | Hospitalist Progress Note ---
Date of Service January 04, 2022 Assessment & Plan (1) Encephalopathy: Plan: Metabolic encephalopathy Likely secondary to secondary to acute renal failure on CKD, COVID-19 Infection Possible underlying cognitive impairment - CT head: No acute intracerebral pathology. Cerebral cortical atrophy and remote small vessel disease. 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 IV Heparin DNR as per patient's prior wishes as per daughter, Ms. Kendy Gramajo. Pending patient needs to transition to SNF Admission and Anticipated Discharge Date Admission Date: December 31, 2021 Subjective Follow-up for COVID-19 infection, atrial fibrillation, etc. Seen resting in bed, comfortable, not in distress Pleasantly confused States he feels fine No chest pain, palpitations, dizziness, nausea No problems with voiding today No evidence of urinary retention per bladder scan per RN No other symptoms or issues noted Review of Systems Review of Systems: all noted and negative except for above Physical Exam Physical Exam: General- oriented x 1, not in distress, speaks in sentences with no effort or accessory muscle use Eyes- anicteric Neck- no JVD Lungs- clear BS, no wheezing no crackles bilaterally Heart- normal rate, irregularly irregular rhythm; no murmurs Abdomen- normal bowel sounds, nondistended, soft, nontender Extremities- no pretibial edema, no calf tenderness Neuro- alert, oriented x 1; no new gross focal neurologic deficits Skin- warm & dry Results & Data Results & Data ([facility]) Vital Signs (Past 12 Hours) Vital Signs Temp Pulse Pulse Resp BP Pulse Ox 01/04/22 16:35 36.1 C L 70 15 124/64 93 01/04/22 12:22 36.0 C L 78 16 114/64 96 01/04/22 07:37 80 01/04/22 07:06 37 C 87 14 110/70 93 all noted and negative except for above
[2022-01-04] MEDS: TAMSULOSIN HCL 0.4 MG CAP PO SCH (21:09)
[2022-01-05] MEDS: LEVOTHYROXINE SODIUM 75 MCG TABLET PO SCH (05:40)
[2022-01-05 06:31] LABS: Partial Thromboplastin Ratio 1.5; Partial Thromboplastin Time 38.2 Seconds (21.0-31.0)
[2022-01-05 06:42] LABS: BUN Creatinine Ratio 14.6 (10-20); Calcium 9.3 mg/dl (8.5-10.1); Creatinine Clr Calc Pharmacy 63.8 ml/min; Est GFR (African American) 94.9 ml/min; Est GFR (Non-African American) 81.9 ml/min; Potassium 4.1 mmol/L (3.5-5.1)
[2022-01-05] MEDS: PANTOprazole 40 MG TAB PO SCH (08:51)
[2022-01-05] MEDS: FINASTERIDE 5 MG TAB PO SCH (08:51)
[2022-01-05] MEDS: CLOPIDOGREL BISULFATE 75 MG TAB PO SCH (08:51)
[2022-01-05] MEDS: ASPIRIN 81 MG ECTAB PO SCH (08:51)
[2022-01-05] MEDS: EZETIMIBE 10 MG TABLET PO SCH (08:52)
[2022-01-05] MEDS: MULTIVITAMIN TAB PO SCH (08:52)
[2022-01-05] MEDS: FENOFIBRATE NANOCRYSTALLIZED 145 MG TABLET PO SCH (08:52)
[2022-01-05] MEDS: ISOSORBIDE MONO EXTENDED REL 60 MG TABCR PO SCH (08:52)
[2022-01-05] MEDS: POTASSIUM CHLORIDE CRTAB 20 MEQ TABCR PO SCH (08:56)
[2022-01-05 13:39] LABS: Partial Thromboplastin Ratio 1.5; Partial Thromboplastin Time 40.1 Seconds (21.0-31.0)
[2022-01-05] MEDS: HEPARIN SODIUM/DEXTROSE 25,000 UNITS/500 ML BAG IV SCH (17:05)
--- NOTE | 2022-01-05 18:16 | Hospitalist Progress Note ---
Date of Service January 05, 2022 Assessment & Plan (1) Encephalopathy: Plan: Metabolic encephalopathy Likely secondary to secondary to acute renal failure on CKD, COVID-19 Infection Possible underlying cognitive impairment - CT head: No acute intracerebral pathology. Cerebral cortical atrophy and remote small vessel disease. Mental status somewhat improved in the sense that patient is not as restless Still mostly confused but pleasant Most likely has underlying undiagnosed dementia Patient will need formal neurological evaluation as an outpatient when this acute episode has resolved - on room air, O2 sat 93 to 96% Respiratory status remains stable CXR: no signs of pneumonia - crea improved, back to baseline New onset atrial flutter - (+) 3 sec pauses noted December 31- - Metoprolol held - No pauses noted x3 days Heart rate controlled - Heparin IV continued but not a senior living candidate for anticoagulation Discussed with cardiology service CAD s/p CABG and stenting, PVD - continue ASA and Plavix Hypertension - BP ok overall Dyslipidemia - statin intolerance - Continue fenofibrate Hypothyroidism - TSH slight elevated 7.8 Free T4 1.1 -Continue levothyroxine 75 mcg daily Pre DM - hemoglobin A1c of 5.9 from March 2017 - a1c 6.3 PT/OT eval: recommend 21/06 care DVT prophylaxis. IV Heparin DNR as per patient's prior wishes as per daughter, . Kendy Gramajo. Pending patient needs to transition to SNF Plan of care discussed with patient's daughter Kendy over the phone in detail and at length All questions were answered She is understanding, agreeable, comfortable with the plan of care Admission and Anticipated Discharge Date Admission Date: December 31, 2021 Subjective Follow-up for COVID-19 infection, atrial flutter, etc. Seen resting in bedside chair, having dinner, comfortable Presently confused No chest pain, shortness of breath, palpitations, dizziness Heart rate controlled, no pauses noted No bleeding No problems with voiding No other acute issues per pasting inspector of Systems Review of Systems: all noted and negative except for above Physical Exam Physical Exam: General- oriented x 1, not in distress, speaks in sentences with no effort or accessory muscle use Eyes- anicteric Neck- no JVD Lungs- clear BS BL Heart- normal rate,irregularly irregular rhythm; no murmurs Abdomen- normal bowel sounds, nondistended, soft, nontender Extremities- no pretibial edema, no calf tenderness Neuro- alert, oriented x 1; no gross focal neurologic deficits Skin- warm & dry Results & Data Results & Data ([facility]) Vital Signs (Past 12 Hours) Vital Signs Temp Pulse Pulse Resp BP Pulse Ox 01/05/22 15:11 97 H 01/05/22 15:02 37.2 C 98 H 16 96/59 L 95 01/05/22 10:59 36.8 C 85 14 105/51 L 96 01/05/22 08:21 86 01/05/22 07:09 37.8 C H 95 H 18 152/66 H 95 all noted and reviewed including below
[2022-01-05 20:08] LABS: Partial Thromboplastin Ratio 1.6; Partial Thromboplastin Time 43.3 Seconds (21.0-31.0)
[2022-01-05] MEDS: PHENAZOPYRIDINE HCL 100 MG TAB PO PRN (20:57)
[2022-01-05] MEDS: TAMSULOSIN HCL 0.4 MG CAP PO SCH (20:57)
[2022-01-06 04:05] LABS: Partial Thromboplastin Ratio 1.6; Partial Thromboplastin Time 42.1 Seconds (21.0-31.0)
[2022-01-06 04:18] LABS: BUN Creatinine Ratio 15.7 (10-20); Calcium 9.4 mg/dl (8.5-10.1); Creatinine Clr Calc Pharmacy 63.8 ml/min; Est GFR (African American) 94.9 ml/min; Est GFR (Non-African American) 81.9 ml/min; Potassium 3.9 mmol/L (3.5-5.1)
[2022-01-06] MEDS: LEVOTHYROXINE SODIUM 75 MCG TABLET PO SCH (05:36)
[2022-01-06] MEDS: CLOPIDOGREL BISULFATE 75 MG TAB PO SCH (08:44)
[2022-01-06] MEDS: ISOSORBIDE MONO EXTENDED REL 60 MG TABCR PO SCH (08:45)
[2022-01-06] MEDS: MULTIVITAMIN TAB PO SCH (08:45)
[2022-01-06] MEDS: PANTOprazole 40 MG TAB PO SCH (08:45)
[2022-01-06] MEDS: FENOFIBRATE NANOCRYSTALLIZED 145 MG TABLET PO SCH (08:45)
[2022-01-06] MEDS: ASPIRIN 81 MG ECTAB PO SCH (08:45)
[2022-01-06] MEDS: EZETIMIBE 10 MG TABLET PO SCH (08:45)
[2022-01-06] MEDS: FINASTERIDE 5 MG TAB PO SCH (08:45)
[2022-01-06] MEDS: POTASSIUM CHLORIDE CRTAB 20 MEQ TABCR PO SCH (08:52)
[2022-01-06 10:01] LABS: Partial Thromboplastin Ratio 1.7; Partial Thromboplastin Time 44.3 Seconds (21.0-31.0)
[2022-01-06] MEDS: HEPARIN SODIUM/DEXTROSE 25,000 UNITS/500 ML BAG IV SCH ×2 (12:59→18:25)
--- NOTE | 2022-01-06 17:50 | Hospitalist Progress Note ---
Date of Service January 06, 2022 Assessment & Plan (1) Encephalopathy: Plan: Metabolic encephalopathy Likely secondary to secondary to acute renal failure on CKD, COVID-19 Infection Possible underlying cognitive impairment - CT head: No acute intracerebral pathology. Cerebral cortical atrophy and remote small vessel disease. Mental status somewhat improved in the sense that patient is not as restless Still mostly confused but pleasant Most likely has underlying undiagnosed dementia Patient will need formal neurological evaluation as an outpatient when this acute episode has resolved - on room air, O2 sat > 94% overall Respiratory status has been stable since admission CXR: no signs of pneumonia - crea improved, back to baseline New onset atrial flutter - (+) 3 sec pauses noted December 31 - Metoprolol held - No pauses noted since Heart rate controlled - Heparin IV continued but not a rn long term care candidate for anticoagulation Discussed with cardiology service CAD s/p CABG and stenting, PVD - continue ASA and Plavix Hypertension - BP ok overall Dyslipidemia - statin intolerance - Continue fenofibrate Hypothyroidism - TSH slight elevated 7.8 Free T4 1.1 -Continue levothyroxine 75 mcg daily Pre DM - hemoglobin A1c of 5.9 from March 2017 - a1c 6.3 PT/OT eval: recommend 21/06 care DVT prophylaxis. IV Heparin DNR as per patient's prior wishes as per daughter, Ms. Kendy Gramajo. Pending patient needs to transition to SNF Admission and Anticipated Discharge Date Admission Date: December 31, 2021 Subjective delayed entry date of service noted above seen resting in bed, comfortable pleasantly confused states he feels fine overall no chest pain, palpitations, dizziness no cough, shortness of breath no other symptoms Review of Systems Review of Systems: all noted and negative except for above Physical Exam Physical Exam: General- oriented x 1, not in distress, speaks in sentences with no effort or accessory muscle use Eyes- anicteric Neck- no JVD Lungs- clear BS BL Heart- normal rate, (+) irreg irregular rhythm; no murmurs Abdomen- normal bowel sounds, nondistended, soft, nontender Extremities- no pretibial edema, no calf tenderness Neuro- alert, oriented x 1; no new gross focal neurologic deficits Skin- warm & dry Results & Data Results & Data ([facility]) Vital Signs (Past 12 Hours) Vital Signs Temp Pulse Resp BP BP Pulse Ox 01/06/22 15:56 36.7 C 97 H 18 100/48 L 96 01/06/22 08:43 155/57 H 01/06/22 07:51 37.6 C H 18 95 all noted and reviewed including below
[2022-01-06 19:11] LABS: Partial Thromboplastin Ratio 1.8
[2022-01-06 19:24] LABS: Partial Thromboplastin Time 46.4 Seconds (21.0-31.0)
[2022-01-06] MEDS: TAMSULOSIN HCL 0.4 MG CAP PO SCH (20:33)
[2022-01-07] MEDS: LEVOTHYROXINE SODIUM 75 MCG TABLET PO SCH (05:39)
[2022-01-07 08:31] LABS: Partial Thromboplastin Time 52.1 Seconds (21.0-31.0)
[2022-01-07] MEDS: EZETIMIBE 10 MG TABLET PO SCH (08:47)
[2022-01-07] MEDS: MULTIVITAMIN TAB PO SCH (08:47)
[2022-01-07] MEDS: ISOSORBIDE MONO EXTENDED REL 60 MG TABCR PO SCH (08:47)
[2022-01-07] MEDS: PANTOprazole 40 MG TAB PO SCH (08:48)
[2022-01-07] MEDS: CLOPIDOGREL BISULFATE 75 MG TAB PO SCH (08:48)
[2022-01-07] MEDS: FINASTERIDE 5 MG TAB PO SCH (08:48)
[2022-01-07] MEDS: FENOFIBRATE NANOCRYSTALLIZED 145 MG TABLET PO SCH (08:48)
[2022-01-07] MEDS: ASPIRIN 81 MG ECTAB PO SCH (08:49)
[2022-01-07] MEDS: POTASSIUM CHLORIDE CRTAB 20 MEQ TABCR PO SCH (10:07)
[2022-01-07] MEDS: HEPARIN SODIUM/DEXTROSE 25,000 UNITS/500 ML BAG IV SCH (14:53)
--- NOTE | 2022-01-07 15:35 | Hospitalist Progress Note ---
Date of Service January 07, 2022 Assessment & Plan (1) Encephalopathy: Plan: #. JESSICA over CKD - resolved #. COVID-19 infection #. Metabolic encephalopathy - likely secondary to above on the background of possible underlying cognitive impairment. Resolved. Admitting CT head: No acute findings Patient AOx3 today. On room air. Respiratory status is stable. Patient will need formal neurological evaluation as an outpatient when this acute episode has resolved #. 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 Manzanares, stop metoprolol and DC hep drip at DC and not a candidate for adjunct faculty for medical terminology anticoagulation - Cardiology evaluated, might require pacer placement down the road, will need to follow-up with cardiology as an outpatient. - Will reach out to card for further DC recs now that he is more alert and medically stable for DC, awaiting placement. #. CAD s/p CABG and stenting, PVD - continue ASA and Plavix #. Hypertension - BP ok overall Dyslipidemia - statin intolerance - Continue fenofibrate Hypothyroidism - TSH slight elevated 7.8 Free T4 1.1 -Continue levothyroxine 75 mcg daily Pre DM - hemoglobin A1c of 5.9 from March 2017 - a1c 6.3 PT/OT eval: recommend 24/ care DVT prophylaxis. IV Heparin DNR as per patient's prior wishes as per daughter, Ms. Kendy Gramajo. Disposition: Medically stable, awaiting placement. Admission and Anticipated Discharge Date Admission Date: December 31, 2021 Subjective Patient was lying in bed, on room air, AOx3, NAD, no new acute events overnight. Patient reports eating and moving bowels okay. Patient denies any fever/headache/chills/chest pain/palpitation/belly pain/other review of symptoms. Physical Exam Physical Exam: GENERAL: Alert and oriented x3. NAD, on RA. HEENT: No pallor, no icterus. Pupils equal, round and reactive to light. Oral mucosa moist. NECK: No JVD, no neck masses. HEART: S1 and S2 heard. Regular rate and rhythm. No murmur, no gallop. RESPIRATORY SYSTEM: Normal AP diameter. No accessory muscle use. No wheezing, no crackles. Decreased breath sounds. ABDOMEN: Soft, bowel sounds present, nontender, no distention. CENTRAL NERVOUS SYSTEM: No facial droop. Speech is clear. Obeys simple commands. Moves extremities. EXTREMITIES: No edema, no erythema seen. Results & Data Results & Data ([facility]) Vital Signs (Past 12 Hours) Vital Signs Temp Pulse Pulse Resp BP BP Pulse Ox 01/07/22 11:47 36.5 C 78 20 112/71 94 01/07/22 10:36 69 01/07/22 07:34 36.4 C L 91 H 18 104/64 96 01/07/22 03:29 36.7 C 91 H 20 117/74 93
[2022-01-07] MEDS: TAMSULOSIN HCL 0.4 MG CAP PO SCH (20:02)
[2022-01-08] MEDS: LEVOTHYROXINE SODIUM 75 MCG TABLET PO SCH (06:17)
[2022-01-08 08:01] LABS: Hemoglobin 13.5 g/dL (14.0-18.0); Mean Corpuscular Hemoglobin 30.9 pg (25-34); Mean Corpuscular Hgb Conc 33.8 g/dL (32-36); Mean Corpuscular Volume 91.5 fL (80-100); Mean Platelet Volume 12.8 fL (7.4-10.4); Platelet Count 233 K/uL (130-400); RDW Coefficient of Variation 14.8 % (11.5-14.5); Red Blood Count 4.37 M/uL (4.7-6.1); White Blood Count 10.49 K/uL (4.8-10.8)
[2022-01-08 08:28] LABS: BUN Creatinine Ratio 21.3 (10-20); Calcium 9.4 mg/dl (8.5-10.1); Creatinine Clr Calc Pharmacy 68.9 ml/min; Est GFR (African American) 99.2 ml/min; Est GFR (Non-African American) 85.6 ml/min; Magnesium 2.2 mg/dl (1.7-2.4); Partial Thromboplastin Ratio 2.1; Phosphorus 2.8 mg/dl (2.5-4.9); Potassium 3.8 mmol/L (3.5-5.1)
[2022-01-08 08:29] LABS: Partial Thromboplastin Time 55.2 Seconds (21.0-31.0)
--- NOTE | 2022-01-08 08:35 | Urology Consultation ---
Date of Consultation January 08, 2022 Assessment & Plan (1) Gross hematuria: 76yo M admitted with Covid-19 infection, metabolic encephalopathy, and new onset of atrial flutter. - Urology consulted for hematuria, clots, obstruction. - Nursing noted blood and a few clots in patient's brief this morning. - Gross hematuria likely secondary to trauma from multiple prior catheter attempts in the setting of anticoagulation, hx of BPH. - Pt is afebrile, labs reviewed - Wbc normal, Hemoglobin stable, Creatinine normal - Continue to monitor. - UA on admission without microscopic blood. - No acute intervention warranted at this time. - Recommend obtaining urine culture to r/o infection and treat if indicated. - Pt voiding spontaneously, mostly incontinent. Continue to monitor, bladder scan as needed. - Recommend continue Flomax and Finasteride. - Will arrange outpatient follow-up for repeat urinalysis, possible hematuria work-up if indicated. - Continue supportive care and management per primary team. - will sign-off, please contact us with any further questions, concerns, or changes in patient status. Supervising Physician Co-Signing Physician Notes Discussed patient with LUCAS. Agree with plan. Appears if hematuria is likely related to traumatic catheter attempts. He had a UA prior to any catheterizations which was negative for microscopic hematuria. Recommend outpatient follow-up and if hematuria has subsided, likely does not need any further follow-up. If hematuria persists, we will plan to move forward with CT urogram and clinic cystoscopy. Monitor PVRs to ensure patient is emptying bladder. History of Present Illness Reason for Consultation: hematuria, clots, obstruction Attending Physician: Abdifatah Good MD History of Present Illness 76 year-old male patient with a past medical history including CAD s/p CABG and stenting, PVD status post surgery, hypertension, hyperlipidemia, statin intolerance, GERD, hypothyroidism, chronic back pain s/p surgery,CKD admitted with Covid-19 infection, metabolic encephalopathy, and new onset of atrial flutter. Urology consulted for hematuria, clots, obstruction. Per chart review, the patient reported bladder pain on 01/02 and a bladder scan revealed 750 cc. Nursing was unable to straight cath patient. Per nursing note, there were multiple failed attempts at placing a Sanz for urinary retention. The patient had been voiding in urinal and/or was incontinent of urine with monitoring of PVR's. Documented bladder scans from 01/03 revealed 70-150 cc. Earlier this morning, nursing noted blood clots and red urine in the patients brief. Per nursing note, the patient reported burning sensation and nursing found a large blood clot in meatus of penis which they removed. Patient was then able to fully void and verbalized relief of burning sensation to nurse. Patient is on ASA and Plavix. He was also on Heparin IV for new onset of atrial flutter, however this was placed on hold after episode of gross hematuria this morning. Pt examined at bedside this AM. Awake, resting in bed on arrival. Seems confused/forgetful at times. Poor historian. No acute distress. He denied any pain or discomfort at present. Reports he did have burning and difficulty with urination this morning, but after the blood clot was removed by nursing he was able to urinate. He is mostly incontinent, but voids in the urinal at times. Denied urinary urgency, frequency, hesitancy. Feels he is emptying his bladder. Stream ok. No fevers or chills. Denies nausea or vomiting. Patient's brief was dry at time of exam. No urine in urinal at time of exam. Patient denies prior hx, however per chart review, hx of BPH s/p TURP in 2004. He denies urinary symptoms or issues at baseline. Denies pertinent family hx. Allergies Allergy/AdvReac Type Severity Reaction Status Date / Time niacin Allergy Mild RASH Verified 12/29/21 21:31 Iodinated Contrast Media Allergy Unknown UNKNOWN Unverified 12/29/21 21:31 atorvastatin [From Lipitor] AdvReac Unknown INTOLERANT Verified 12/29/21 23:14 Home Medications Medication Instructions Recorded Confirmed Type Aspirin Enteric Coated (Ecotrin Or 81 mg PO DAILY #0 04/11/10 History Generic *) Ezetimibe (Zetia) 10 mg PO DAILY #0 04/11/10 History Isosorbide Mononitrate Ext Rel 120 mg PO DAILY #0 04/11/10 History (Imdur Ext Rel) Metoprolol Succ (Toprol Xl) 12.5 mg PO QPM #30 04/11/10 History (Toprol-Xl) Multivitamin 1 tab PO DAILY #0 04/11/10 History Acetaminophen (Tylenol) 500 mg PO Q4 PRN #0 tab 12/15/13 History Amlodipine (Norvasc) 5 mg PO BID #0 tab 12/15/13 History Fenofibrate (Tricor) 200 mg PO DAILY #0 cap 12/15/13 History Fish Oil ([place]-3) 3,000 mg PO DAILY #0 cap 12/15/13 History Nitroglycerin (Nitrostat) 0.4 mg UT PRN #0 btl 12/15/13 History OMEPRAZOLE (PRILOSEC) 20 mg PO DAILY #0 cap 12/15/13 History Alirocumab (Praluent) 1 dose SC every 2 weeks 30 Days #0 08/05/16 Rx FINASTERIDE (PROSCAR) 5 mg PO DAILY 30 Days #30 tab 08/05/16 Rx LEVOTHYROXINE SODIUM (SYNTHROID) 75 mcg PO DAILY 30 Days #45 tab 08/05/16 Rx Clopidogrel (Plavix) 75 mg PO DAILY #0 tab 09/17/16 History Patient History Social History Smoking Status: Never smoker Preferred Language: Occitan Kit Assembler Required: No Beliefs That Will Affect Care: None Current Living Situation Comment: unknown Feels Safe at Home: Yes Assistive Devices: None Review of Systems Constitutional: as per Subjective / HPI Eyes: no problem reported Ear, Nose, Mouth, Throat: no problem reported Respiratory: no cough Cardiovascular: no chest pain and no dyspnea Gastrointestinal: as per Subjective / HPI Genitourinary: + as per Subjective / HPI Musculoskeletal: no problem reported Integumentary: no rash Neurologic: as per Subjective / HPI Psychiatric: as per Subjective / HPI Endocrine: no problem reported Physical Exam Constitutional: no acute distress and not ill appearing Neck: normal visual inspection Respiratory: normal respiratory effort and able to speak in complete sentences; no labored breathing and no audible wheezes Cardiovascular: Extremities: no calf tenderness Gastrointestinal (Abdomen): Inspection/Auscultation: abdomen normal to inspection; abdomen not distended Percussion/Palpation: abdomen soft; abdomen nontender and no guarding Musculoskeletal: Head/Neck/Chest: normocephalic Skin: No visible rashes or lesions to exposed skin areas Neurologic: moves all extremities and awake Psychiatric: Orientation: alert, oriented to person, oriented to place and cooperative Results & Data ([facility]) Vital Signs (Past 12 Hours) Vital Signs Temp Pulse Pulse Pulse Resp BP BP 01/08/22 07:10 36.3 C L 90 18 113/70 01/08/22 02:36 36.6 C 66 18 113/77 01/08/22 02:00 01/08/22 00:00 93 H 01/07/22 23:07 36.9 C 71 20 106/57 L Pulse Ox Pulse Ox 01/08/22 07:10 96 01/08/22 02:36 93 01/08/22 02:00 92 01/08/22 00:00 01/07/22 23:07 97 PG Care Time/CCT Total # of Minutes Spent Total Time Spent with Patient: Total time spent is greater than 50% in coordination of care (as documented) at patient's floor/unit and/or counseling patient: Coding Level of Care Code 63201 Initial Inpt Care Lvl 2 Diagnoses Gross hematuria R31.0
[2022-01-08] MEDS: PANTOprazole 40 MG TAB PO SCH (09:03)
[2022-01-08] MEDS: FENOFIBRATE NANOCRYSTALLIZED 145 MG TABLET PO SCH (09:03)
[2022-01-08] MEDS: MULTIVITAMIN TAB PO SCH (09:03)
[2022-01-08] MEDS: FINASTERIDE 5 MG TAB PO SCH (09:04)
[2022-01-08] MEDS: ISOSORBIDE MONO EXTENDED REL 60 MG TABCR PO SCH (09:04)
[2022-01-08] MEDS: EZETIMIBE 10 MG TABLET PO SCH (09:04)
[2022-01-08] MEDS: POTASSIUM CHLORIDE CRTAB 20 MEQ TABCR PO SCH (09:27)
[2022-01-08] MEDS: CLOPIDOGREL BISULFATE 75 MG TAB PO SCH (09:28)
[2022-01-08] MEDS: HEPARIN SODIUM/DEXTROSE 25,000 UNITS/500 ML BAG IV SCH ×2 (09:32→10:20)
[2022-01-08] MEDS: ASPIRIN 81 MG ECTAB PO SCH (10:21)
--- NOTE | 2022-01-08 18:33 | Hospitalist Progress Note ---
Date of Service January 08, 2022 Assessment & Plan (1) Encephalopathy: Plan: #. JESSICA over CKD - resolved #. COVID-19 infection #. Metabolic encephalopathy - likely secondary to above on the background of possible underlying cognitive impairment. Resolved. Admitting CT head: No acute findings Patient A but not oriented. On room air. Respiratory status is stable. Patient will need formal neurological evaluation as an outpatient when this acute episode has resolved #. New onset atrial flutter - likely in the setting of COVID infection - (+) 3 sec pauses noted December 31, none noted after - Metoprolol held, discussed with cardiology 01/08, since heart rate fairly controlled under 100, no need to resume. 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 Manzanares, stop metoprolol and DC hep drip at DC and not a candidate for halfway anticoagulation - Cardiology evaluated, might require pacer placement down the road, will need to follow-up with cardiology as an outpatient. #. Hematuria Per RN, patient has hematuria and clots were noted on 01/08 a.m. Likely secondary to traumatic catheterization attempt early in the admission. Urinalysis with reflex culture sent. Continue Flomax and finasteride. Monitor H&H. Heparin drip stopped, urology consulted, appreciate recommendation, will need outpatient urology follow-up. #. CAD s/p CABG and stenting, PVD - continue ASA and Plavix #. Hypertension - BP ok overall Dyslipidemia - statin intolerance - Continue fenofibrate Hypothyroidism - TSH slight elevated 7.8 Free T4 1.1 -Continue levothyroxine 75 mcg daily Pre DM - hemoglobin A1c of 5.9 from March 2017 - a1c 6.3 PT/OT eval: recommend 24/ care DVT prophylaxis. SCDs, heparin drip stopped due to hematuria. DNR as per patient's prior wishes as per daughter, Ms. Kendy Gramajo. Disposition: Medically stable, awaiting placement. Admission and Anticipated Discharge Date Admission Date: December 31, 2021 Subjective Patient was lying in bed, on room air, alert but not oriented, NAD, no new acute events overnight per RN but had hematuria/clots in the morning. Per RN he is eating okay.. Patient denies any fever/headache/chills/chest pain/palpitation/belly pain/other review of symptoms. Physical Exam Physical Exam: GENERAL: Alert and oriented x3. NAD, on RA. HEENT: No pallor, no icterus. Pupils equal, round and reactive to light. Oral mucosa moist. NECK: No JVD, no neck masses. HEART: S1 and S2 heard. Regular rate and rhythm. No murmur, no gallop. RESPIRATORY SYSTEM: Normal AP diameter. No accessory muscle use. No wheezing, no crackles. Decreased breath sounds. ABDOMEN: Soft, bowel sounds present, nontender, no distention. CENTRAL NERVOUS SYSTEM: No facial droop. Speech is clear. Obeys simple commands. Moves extremities. EXTREMITIES: No edema, no erythema seen. Results & Data Results & Data ([facility]) Vital Signs (Past 12 Hours) Vital Signs Temp Pulse Pulse Pulse Resp BP BP 01/08/22 15:47 36.7 C 93 H 18 115/73 01/08/22 14:14 91 H 01/08/22 11:47 36.5 C 94 H 18 99/57 L 01/08/22 07:10 36.3 C L 90 18 113/70 Pulse Ox 01/08/22 15:47 97 01/08/22 14:14 01/08/22 11:47 96 01/08/22 07:10 96
[2022-01-08] MEDS: TAMSULOSIN HCL 0.4 MG CAP PO SCH (20:02)
[2022-01-09] MEDS: LEVOTHYROXINE SODIUM 75 MCG TABLET PO SCH (05:36)
[2022-01-09 08:32] LABS: Appearance Urine Clear (Clear); Bacteria Urine Automated Negative (Negative); Bilirubin Urine Negative (Negative); Blood Urine 2+ (Negative); Color Urine Yellow; Epithelial Cell Urine Auto 0-5 /lpf (0-5); Glucose Urine UA Negative (Negative); Ketones Urine Negative (Negative); Leukocyte Esterase Urine Negative (Negative); Nitrite Urine Negative (Negative); Protein Urine Negative (Negative); RBC Urine Automated 0-4 /hpf (0-4); Specific Gravity Urine 1.005 (1.000-1.030); Urobilinogen Urine Negative (Negative); WBC Urine Automated 0 /hpf (0-5)
[2022-01-09 08:38] LABS: Hematocrit (blood only) 43.4 % (42-52); Hemoglobin 14.7 g/dL (14.0-18.0); Mean Corpuscular Hemoglobin 30.7 pg (25-34); Mean Corpuscular Hgb Conc 33.9 g/dL (32-36); Mean Corpuscular Volume 90.6 fL (80-100); Mean Platelet Volume 12.6 fL (7.4-10.4); Platelet Count 254 K/uL (130-400); RDW Coefficient of Variation 14.4 % (11.5-14.5); RDW Standard Deviation 47.9 fL (36.4-46.3); Red Blood Count 4.79 M/uL (4.7-6.1); White Blood Count 9.52 K/uL (4.8-10.8)
[2022-01-09] MEDS: ISOSORBIDE MONO EXTENDED REL 60 MG TABCR PO SCH (09:50)
[2022-01-09] MEDS: CLOPIDOGREL BISULFATE 75 MG TAB PO SCH (09:50)
[2022-01-09] MEDS: FENOFIBRATE NANOCRYSTALLIZED 145 MG TABLET PO SCH (09:51)
[2022-01-09] MEDS: PANTOprazole 40 MG TAB PO SCH (09:51)
[2022-01-09] MEDS: EZETIMIBE 10 MG TABLET PO SCH (09:51)
[2022-01-09] MEDS: ASPIRIN 81 MG ECTAB PO SCH (09:51)
[2022-01-09] MEDS: MULTIVITAMIN TAB PO SCH (09:52)
[2022-01-09] MEDS: FINASTERIDE 5 MG TAB PO SCH (09:52)
[2022-01-09] MEDS: POTASSIUM CHLORIDE CRTAB 20 MEQ TABCR PO SCH (09:54)
--- NOTE | 2022-01-09 18:40 | Hospitalist Progress Note ---
Date of Service January 09, 2022 Assessment & Plan (1) Encephalopathy: Plan: #. JESSICA over CKD - resolved #. COVID-19 infection #. Metabolic encephalopathy - likely secondary to above on the background of possible underlying cognitive impairment. Resolved. Admitting CT head: No acute findings Patient A but not oriented. On room air. Respiratory status is stable. Patient will need formal neurological evaluation as an outpatient when this acute episode has resolved #. New onset atrial flutter - likely in the setting of COVID infection - (+) 3 sec pauses noted December 31, none noted after - Metoprolol held, discussed with cardiology 01/08, since heart rate fairly controlled under 100, no need to resume. - Heart rate controlled, a flutter - Heparin IV DC'd 01/09 due to hematuria and is not a continuous churn buttermaker candidate for anticoagulation per cardiology - Per prior Dr. Manzanares, stop metoprolol and DC hep drip at DC and not a candidate for continuous churn buttermaker anticoagulation - Cardiology evaluated, might require pacer placement down the road, will need to follow-up with cardiology as an outpatient. #. Hematuria Per RN, patient has hematuria and clots were noted on 01/08 a.m. Likely secondary to traumatic catheterization attempt early in the admission. Urinalysis with reflex culture sent. Continue Flomax and finasteride. Monitor H&H. Heparin drip stopped, urology consulted, appreciate recommendation, will need outpatient urology follow-up. #. CAD s/p CABG and stenting, PVD - continue ASA and Plavix #. Hypertension - BP ok overall Dyslipidemia - statin intolerance - Continue fenofibrate Hypothyroidism - TSH slight elevated 7.8 Free T4 1.1 -Continue levothyroxine 75 mcg daily Pre DM - hemoglobin A1c of 5.9 from March 2017 - a1c 6.3 PT/OT eval: recommend 24/ care DVT prophylaxis. SCDs, heparin drip stopped due to hematuria. DNR as per patient's prior wishes as per daughter, Ms. Kendy Gramajo. Disposition: Medically stable, awaiting placement. Admission and Anticipated Discharge Date Admission Date: December 31, 2021 Subjective Patient was lying in bed, on room air, alert but not oriented, NAD, no new acute events overnight per RN patient is doing better, clean urine no hematuria.. Per RN he is eating okay.. Patient denies any fever/headache/chills/chest pain/palpitation/belly pain/other review of symptoms. Telemetry reviewed, a flutter in 90s. Physical Exam Physical Exam: GENERAL: Alert but oriented x 0. NAD, on RA. HEENT: No pallor, no icterus. Pupils equal, round and reactive to light. Oral mucosa moist. NECK: No JVD, no neck masses. HEART: S1 and S2 heard. Regular rate and rhythm. No murmur, no gallop. RESPIRATORY SYSTEM: Normal AP diameter. No accessory muscle use. No wheezing, no crackles. Decreased breath sounds. ABDOMEN: Soft, bowel sounds present, nontender, no distention. CENTRAL NERVOUS SYSTEM: No facial droop. Speech is clear. Obeys simple commands. Moves extremities. EXTREMITIES: No edema, no erythema seen. Results & Data Results & Data ([facility]) Vital Signs (Past 12 Hours) Vital Signs Temp Pulse Pulse Pulse Resp BP BP 01/09/22 15:37 36.8 C 92 H 20 119/75 01/09/22 15:36 79 01/09/22 11:54 36.7 C 96 H 20 104/59 L 01/09/22 07:58 36.7 C 95 H 20 110/78 01/09/22 07:31 36.4 C L 96 H 16 125/63 Pulse Ox 01/09/22 15:37 94 01/09/22 15:36 01/09/22 11:54 97 01/09/22 07:58 97 01/09/22 07:31 96
[2022-01-09] MEDS: TAMSULOSIN HCL 0.4 MG CAP PO SCH (21:55)
[2022-01-10] MEDS: LEVOTHYROXINE SODIUM 75 MCG TABLET PO SCH (06:35)
[2022-01-10 08:02] LABS: Hematocrit (blood only) 42.4 % (42-52); Hemoglobin 14.4 g/dL (14.0-18.0)
[2022-01-10] MEDS: PANTOprazole 40 MG TAB PO SCH (08:13)
[2022-01-10] MEDS: FENOFIBRATE NANOCRYSTALLIZED 145 MG TABLET PO SCH (08:13)
[2022-01-10] MEDS: ISOSORBIDE MONO EXTENDED REL 60 MG TABCR PO SCH (08:13)
[2022-01-10] MEDS: ASPIRIN 81 MG ECTAB PO SCH (08:13)
[2022-01-10] MEDS: CLOPIDOGREL BISULFATE 75 MG TAB PO SCH (08:13)
[2022-01-10] MEDS: FINASTERIDE 5 MG TAB PO SCH (08:13)
[2022-01-10] MEDS: MULTIVITAMIN TAB PO SCH (08:13)
[2022-01-10] MEDS: EZETIMIBE 10 MG TABLET PO SCH (08:13)
[2022-01-10] MEDS: POTASSIUM CHLORIDE CRTAB 20 MEQ TABCR PO SCH (08:18)
--- NOTE | 2022-01-10 16:08 | Hospitalist Progress Note ---
Date of Service January 10, 2022 Assessment & Plan (1) Encephalopathy: Plan: #. JESSICA over CKD - resolved #. COVID-19 infection #. Metabolic encephalopathy - likely secondary to above on the background of possible underlying cognitive impairment. Resolved. Admitting CT head: No acute findings Patient A but not oriented. On room air. Respiratory status is stable. Patient will need formal neurological evaluation as an outpatient when this acute episode has resolved #. New onset atrial flutter - likely in the setting of COVID infection - (+) 3 sec pauses noted December 31, none noted after - Metoprolol held, discussed with cardiology 01/08, since heart rate fairly controlled under 100, no need to resume. 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 SCDs while in hospital. Mobilize every 2-3 hours. - Per prior Dr. 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 #. Hematuria Per RN, patient has hematuria and clots were noted on 01/08 a.m. Likely secondary to traumatic catheterization attempt early in the admission. Urinalysis with reflex culture sent. Continue Flomax and finasteride. Monitor H&H. Heparin drip stopped, urology consulted, appreciate recommendation, will need outpatient urology follow-up. Currently no hematuria. #. CAD s/p CABG and stenting, PVD - continue ASA and Plavix #. Hypertension - BP ok overall Dyslipidemia - statin intolerance - Continue fenofibrate Hypothyroidism - TSH slight elevated 7.8 Free T4 1.1 -Continue levothyroxine 75 mcg daily Pre DM - hemoglobin A1c of 5.9 from March 2017 - a1c 6.3 PT/OT eval: recommend 24/7 care DVT prophylaxis. SCDs, heparin drip stopped due to hematuria. DNR as per patient's prior wishes as per daughter, Ms. Kendy Gramajo. Disposition: Medically stable, awaiting placement. Admission and Anticipated Discharge Date Admission Date: December 31, 2021 Subjective Patient was lying in bed, on room air, alert but not oriented, NAD, no new acute events overnight. Patient reports eating his breakfast today. Patient denies any fever/headache/chills/chest pain/palpitation/belly pain/other review of symptoms. Heart rate under control. Physical Exam Physical Exam: GENERAL: Alert but oriented x 0. NAD, on RA. HEENT: No pallor, no icterus. Pupils equal, round and reactive to light. Oral mucosa moist. NECK: No JVD, no neck masses. HEART: S1 and S2 heard. Regular rate and rhythm. No murmur, no gallop. RESPIRATORY SYSTEM: Normal AP diameter. No accessory muscle use. No wheezing, no crackles. Decreased breath sounds. ABDOMEN: Soft, bowel sounds present, nontender, no distention. CENTRAL NERVOUS SYSTEM: No facial droop. Speech is clear. Obeys simple commands. Moves extremities. EXTREMITIES: No edema, no erythema seen. Results & Data Results & Data ([facility]) Vital Signs (Past 12 Hours) Vital Signs Temp Pulse Pulse Pulse Resp BP Pulse Ox 01/10/22 15:45 82 01/10/22 15:39 36.5 C 80 14 112/65 95 01/10/22 07:47 68 01/10/22 07:00 90 95 01/10/22 06:54 36.4 C L 80 16 120/78 95
[2022-01-10] MEDS: TAMSULOSIN HCL 0.4 MG CAP PO SCH (20:05)
[2022-01-11] MEDS: LEVOTHYROXINE SODIUM 75 MCG TABLET PO SCH (06:23)
[2022-01-11] MEDS: ISOSORBIDE MONO EXTENDED REL 60 MG TABCR PO SCH (09:39)
[2022-01-11] MEDS: PHENAZOPYRIDINE HCL 100 MG TAB PO PRN (09:39)
[2022-01-11] MEDS: ASPIRIN 81 MG ECTAB PO SCH (09:39)
[2022-01-11] MEDS: EZETIMIBE 10 MG TABLET PO SCH (09:39)
[2022-01-11] MEDS: PANTOprazole 40 MG TAB PO SCH (09:39)
[2022-01-11] MEDS: FINASTERIDE 5 MG TAB PO SCH (09:40)
[2022-01-11] MEDS: CLOPIDOGREL BISULFATE 75 MG TAB PO SCH (09:40)
[2022-01-11] MEDS: FENOFIBRATE NANOCRYSTALLIZED 145 MG TABLET PO SCH (09:40)
[2022-01-11] MEDS: MULTIVITAMIN TAB PO SCH (09:40)
[2022-01-11] MEDS: POTASSIUM CHLORIDE CRTAB 20 MEQ TABCR PO SCH (09:47)
--- NOTE | 2022-01-11 16:47 | Hospitalist Progress Note ---
Date of Service January 11, 2022 Assessment & Plan (1) Encephalopathy: Plan: #. JESSICA over CKD - resolved #. COVID-19 infection #. Metabolic encephalopathy - likely secondary to above on the background of possible underlying cognitive impairment. Resolved. Admitting CT head: No acute findings Patient A but not oriented. On room air. Respiratory status is stable. Patient will need formal neurological evaluation as an outpatient when this acute episode has resolved #. New onset atrial flutter - likely in the setting of COVID infection - (+) 3 sec pauses noted December 31, none noted after - Metoprolol held, discussed with cardiology 01/08, since heart rate fairly controlled under 100, no need to resume. - Heart rate controlled, a flutter - Heparin IV DC'd 01/09 due to hematuria and is not a terminal manager candidate for anticoagulation per cardiology. SCDs while in hospital. Mobilize every 2-3 hours. - Per prior Dr. Manzanares, stop metoprolol and DC hep drip at DC and not a candidate for terminal manager anticoagulation - Cardiology evaluated, might require pacer placement down the road, will need to follow-up with cardiology as an outpatient. #. Hematuria Per RN, patient has hematuria and clots were noted on 01/08 a.m. Likely secondary to traumatic catheterization attempt early in the admission. Urinalysis with reflex culture sent. Continue Flomax and finasteride. Monitor H&H. Heparin drip stopped, urology consulted, appreciate recommendation, will need outpatient urology follow-up. Currently no hematuria. #. CAD s/p CABG and stenting, PVD - continue ASA and Plavix #. Hypertension - BP ok overall Dyslipidemia - statin intolerance - Continue fenofibrate Hypothyroidism - TSH slight elevated 7.8 Free T4 1.1 -Continue levothyroxine 75 mcg daily Pre DM - hemoglobin A1c of 5.9 from March 2017 - a1c 6.3 PT/OT eval: recommend 24/7 care DVT prophylaxis. SCDs, heparin drip stopped due to hematuria. DNR as per patient's prior wishes as per daughter, Ms. Kendy Gramajo. Disposition: Medically stable, awaiting placement. Admission and Anticipated Discharge Date Admission Date: December 31, 2021 Subjective Patient was lying in bed, on room air, alert but not oriented, NAD, no new acute events overnight. Patient reports eating his breakfast today. Patient denies any fever/headache/chills/chest pain/palpitation/belly pain/other review of symptoms. Heart rate under control. Physical Exam Physical Exam: GENERAL: Alert but oriented x 0. NAD, on RA. HEENT: No pallor, no icterus. Pupils equal, round and reactive to light. Oral mucosa moist. NECK: No JVD, no neck masses. HEART: S1 and S2 heard. Regular rate and rhythm. No murmur, no gallop. RESPIRATORY SYSTEM: Normal AP diameter. No accessory muscle use. No wheezing, no crackles. Decreased breath sounds. ABDOMEN: Soft, bowel sounds present, nontender, no distention. CENTRAL NERVOUS SYSTEM: No facial droop. Speech is clear. Obeys simple commands. Moves extremities. EXTREMITIES: No edema, no erythema seen. Results & Data Results & Data ([facility]) Vital Signs (Past 12 Hours) Vital Signs Temp Pulse Pulse Resp BP BP Pulse Ox 01/11/22 16:25 37.4 C 93 H 17 107/66 98 01/11/22 11:30 89 16 107/60 94 01/11/22 09:40 36.9 C 65 16 109/63 96
[2022-01-11] MEDS: TAMSULOSIN HCL 0.4 MG CAP PO SCH (20:48)
[2022-01-12] MEDS: LEVOTHYROXINE SODIUM 75 MCG TABLET PO SCH (06:52)
[2022-01-12 07:54] LABS: Hematocrit (blood only) 42.1 % (42-52); Hemoglobin 14.3 g/dL (14.0-18.0)
[2022-01-12] MEDS: ISOSORBIDE MONO EXTENDED REL 60 MG TABCR PO SCH (08:45)
[2022-01-12] MEDS: ASPIRIN 81 MG ECTAB PO SCH (08:46)
[2022-01-12] MEDS: CLOPIDOGREL BISULFATE 75 MG TAB PO SCH (08:46)
[2022-01-12] MEDS: FINASTERIDE 5 MG TAB PO SCH (08:46)
[2022-01-12] MEDS: MULTIVITAMIN TAB PO SCH (08:46)
[2022-01-12] MEDS: PANTOprazole 40 MG TAB PO SCH (08:46)
[2022-01-12] MEDS: EZETIMIBE 10 MG TABLET PO SCH (08:46)
[2022-01-12] MEDS: FENOFIBRATE NANOCRYSTALLIZED 145 MG TABLET PO SCH (08:46)
[2022-01-12] MEDS: POTASSIUM CHLORIDE CRTAB 20 MEQ TABCR PO SCH (08:53)
--- NOTE | 2022-01-12 19:32 | Hospitalist Progress Note ---
Date of Service January 12, 2022 Assessment & Plan (1) Encephalopathy: Plan: #. JESSICA over CKD - resolved #. COVID-19 infection #. Metabolic encephalopathy - likely secondary to above on the background of possible underlying cognitive impairment. Resolved. Admitting CT head: No acute findings Patient A but not oriented. On room air. Respiratory status is stable. Patient will need formal neurological evaluation as an outpatient when this acute episode has resolved #. New onset atrial flutter - likely in the setting of COVID infection - (+) 3 sec pauses noted December 31, none noted after - Metoprolol held, discussed with cardiology 01/08, since heart rate fairly controlled under 100, no need to resume. - Heart rate controlled, a flutter - Heparin IV DC'd 01/09 due to hematuria and is not a intermediate manager candidate for anticoagulation per cardiology. SCDs while in hospital. Mobilize every 2-3 hours. - Per prior Dr. Manzanares, stop metoprolol and DC hep drip at DC and not a candidate for intermediate manager anticoagulation - Cardiology evaluated, might require pacer placement down the road, will need to follow-up with cardiology as an outpatient. #. Hematuria Per RN, patient has hematuria and clots were noted on 01/08 a.m. Likely secondary to traumatic catheterization attempt early in the admission. Continue Flomax and finasteride. Monitor H&H. Heparin drip stopped, urology consulted, appreciate recommendation, will need outpatient urology follow-up. Currently no hematuria. Hb stable #. CAD s/p CABG and stenting, PVD - continue ASA and Plavix #. Hypertension - BP ok overall Dyslipidemia - statin intolerance - Continue fenofibrate PT/OT eval: recommend 21/06 care DVT prophylaxis. SCDs, heparin drip stopped due to hematuria. DNR as per patient's prior wishes as per daughter, Ms. Kendy Gramajo. Disposition: Medically stable, awaiting placement. Admission and Anticipated Discharge Date Admission Date: December 31, 2021 Subjective Patient was sitting up in chair eating his lunch, on room air, alert but not oriented, NAD, no new acute events overnight. Patient denies any fever/headache/chills/chest pain/palpitation/belly pain/other review of symptoms. Physical Exam Physical Exam: GENERAL: Alert but oriented x 0. NAD, on RA. HEENT: No pallor, no icterus. Pupils equal, round and reactive to light. Oral mucosa moist. NECK: No JVD, no neck masses. HEART: S1 and S2 heard. Regular rate and rhythm. No murmur, no gallop. RESPIRATORY SYSTEM: Normal AP diameter. No accessory muscle use. No wheezing, no crackles. Decreased breath sounds. ABDOMEN: Soft, bowel sounds present, nontender, no distention. CENTRAL NERVOUS SYSTEM: No facial droop. Speech is clear. Obeys simple commands. Moves extremities. EXTREMITIES: No edema, no erythema seen. Results & Data Results & Data ([facility]) Vital Signs (Past 12 Hours) Vital Signs Temp Pulse Pulse Pulse Resp BP Pulse Ox 01/12/22 16:02 37 C 68 16 108/84 98 01/12/22 10:26 90 01/12/22 09:48 01/12/22 07:54 36.7 C 67 77 16 108/70 96 Pulse Ox 01/12/22 16:02 01/12/22 10:26 01/12/22 09:48 93 01/12/22 07:54
[2022-01-12] MEDS: TAMSULOSIN HCL 0.4 MG CAP PO SCH (19:44)
[2022-01-13] MEDS: LEVOTHYROXINE SODIUM 75 MCG TABLET PO SCH (03:34)
[2022-01-13] MEDS: FENOFIBRATE NANOCRYSTALLIZED 145 MG TABLET PO SCH (10:45)
[2022-01-13] MEDS: FINASTERIDE 5 MG TAB PO SCH (10:45)
[2022-01-13] MEDS: EZETIMIBE 10 MG TABLET PO SCH (10:45)
[2022-01-13] MEDS: ISOSORBIDE MONO EXTENDED REL 60 MG TABCR PO SCH (10:45)
[2022-01-13] MEDS: MULTIVITAMIN TAB PO SCH (10:45)
[2022-01-13] MEDS: PANTOprazole 40 MG TAB PO SCH (10:45)
[2022-01-13] MEDS: ASPIRIN 81 MG ECTAB PO SCH (10:45)
[2022-01-13] MEDS: CLOPIDOGREL BISULFATE 75 MG TAB PO SCH (10:46)
[2022-01-13] MEDS: POTASSIUM CHLORIDE CRTAB 20 MEQ TABCR PO SCH (10:52)
--- NOTE | 2022-01-13 18:50 | Hospitalist Progress Note ---
Date of Service January 13, 2022 Assessment & Plan (1) Encephalopathy: Plan: #. JESSICA over CKD - resolved #. COVID-19 infection #. Metabolic encephalopathy - likely secondary to above on the background of possible underlying cognitive impairment. Resolved. Admitting CT head: No acute findings Patient A Ox 3 today. On room air. Respiratory status is stable. Patient will need formal neurological evaluation as an outpatient when this acute episode has resolved #. New onset atrial flutter - likely in the setting of COVID infection - (+) 3 sec pauses noted December 31, none noted after - Metoprolol held, discussed with cardiology 01/08, since heart rate fairly controlled under 100, no need to resume. - Heart rate controlled, a flutter - Heparin IV DC'd 01/09 due to hematuria and is not a long-term candidate for anticoagulation per cardiology. SCDs while in hospital. Mobilize every 2-3 hours. - Per prior Dr. Manzanares, stop metoprolol and DC hep drip at DC and not a candidate for long-term anticoagulation - Cardiology evaluated, might require pacer placement down the road, will need to follow-up with cardiology as an outpatient. #. Hematuria Per RN, patient has hematuria and clots were noted on 01/08 a.m. Likely secondary to traumatic catheterization attempt early in the admission. Continue Flomax and finasteride. Monitor H&H. Heparin drip stopped, urology consulted, appreciate recommendation, will need outpatient urology follow-up. Currently no hematuria. Hb stable #. CAD s/p CABG and stenting, PVD - continue ASA and Plavix #. Hypertension - BP ok overall Dyslipidemia - statin intolerance - Continue fenofibrate PT/OT eval: recommend 21/06 care DVT prophylaxis. SCDs, heparin drip stopped due to hematuria. DNR as per patient's prior wishes as per daughter, Ms. Kendy Gramajo. Disposition: Medically stable, awaiting placement. Admission and Anticipated Discharge Date Admission Date: December 31, 2021 Subjective Patient was lying in bed, on room air, alert and Ox3, NAD, no new acute events overnight. Patient denies any fever/headache/chills/chest pain/palp itation/belly pain/other review of symptoms. Physical Exam Physical Exam: GENERAL: Alert but oriented x 3. NAD, on RA. HEENT: No pallor, no icterus. Pupils equal, round and reactive to light. Oral mucosa moist. NECK: No JVD, no neck masses. HEART: S1 and S2 heard. Regular rate and rhythm. No murmur, no gallop. RESPIRATORY SYSTEM: Normal AP diameter. No accessory muscle use. No wheezing, no crackles. ABDOMEN: Soft, bowel sounds present, nontender, no distention. CENTRAL NERVOUS SYSTEM: No facial droop. Speech is clear. Obeys simple commands. Moves extremities. EXTREMITIES: No edema, no erythema seen. Results & Data Results & Data ([facility]) Vital Signs (Past 12 Hours) Vital Signs Temp Pulse Resp BP Pulse Ox 01/13/22 17:02 36.6 C 74 18 118/61 97 01/13/22 11:12 36.6 C 91 H 18 95/62 L 97 01/13/22 07:19 36.6 C 70 18 112/55 L 97
[2022-01-13] MEDS: TAMSULOSIN HCL 0.4 MG CAP PO SCH (21:09)
[2022-01-14] MEDS: LEVOTHYROXINE SODIUM 75 MCG TABLET PO SCH (05:35)
[2022-01-14] MEDS: CLOPIDOGREL BISULFATE 75 MG TAB PO SCH (08:09)
[2022-01-14] MEDS: PANTOprazole 40 MG TAB PO SCH (08:09)
[2022-01-14] MEDS: ASPIRIN 81 MG ECTAB PO SCH (08:09)
[2022-01-14] MEDS: FENOFIBRATE NANOCRYSTALLIZED 145 MG TABLET PO SCH (08:09)
[2022-01-14] MEDS: EZETIMIBE 10 MG TABLET PO SCH (08:10)
[2022-01-14] MEDS: MULTIVITAMIN TAB PO SCH (08:10)
[2022-01-14] MEDS: FINASTERIDE 5 MG TAB PO SCH (08:10)
[2022-01-14] MEDS: ISOSORBIDE MONO EXTENDED REL 60 MG TABCR PO SCH (08:11)
[2022-01-14] MEDS: POTASSIUM CHLORIDE CRTAB 20 MEQ TABCR PO SCH (09:51)
--- NOTE | 2022-01-14 15:24 | Hospitalist Progress Note ---
Date of Service January 14, 2022 Assessment & Plan (1) Encephalopathy: Plan: Acute Metabolic encephalopathy Recent cognitive decline for the last 6-month as per the daughter Admitting CT head: No acute findings Remains alert awake and oriented on admission. Respiratory status is stable. Patient will need formal neurological evaluation as an outpatient when this acute episode has resolved No more confusion noted Hematuria Per RN, patient has hematuria and clots were noted on 10 a.m. Likely secondary to traumatic catheterization attempt early in the admission. Continue Flomax and finasteride. Monitor H&H. Heparin drip stopped, urology consulted, appreciate recommendation, will need outpatient urology follow-up. Currently no hematuria. Hb stable Hypertension - BP ok overall Dyslipidemia - statin intolerance - Continue fenofibrate (2) COVID-19: Plan: He is vaccinated Sick contact of COVID-19 at home Did not require any treatment (3) Atrial flutter: Plan: Likely in the setting of COVID infection -(+) 3 sec pauses noted December 31, none noted after - Metoprolol held, discussed with cardiology 01/08, since heart rate fairly controlled under 100, no need to resume. - Heart rate controlled, a flutter - Heparin IV DC'd 01/09 due to hematuria and is not a manager long term care candidate for anticoagulation per cardiology. SCDs while in hospital. Mobilize every 2-3 ana rs. - Per prior Dr. Manzanares, stop metoprolol and DC hep drip at DC and not a candidate for [facility] anticoagulation - Cardiology evaluated, might require pacer placement down the road -Will need cardiology evaluation as an outpatient (4) CAD (coronary artery disease): Plan: #. CAD s/p CABG and stenting, PVD - continue ASA and Plavix (5) GERD (gastroesophageal reflux disease): (6) HTN (hypertension): Plan: PT/OT eval: recommend 21/06 care DVT prophylaxis. SCDs, heparin drip stopped due to hematuria. DNR as per patient's prior wishes as per daughter, Ms. Kendy Gramajo. Disposition: Medically stable, awaiting placement. Admission and Anticipated Discharge Date Admission Date: December 31, 2021 Subjective 01/14/2022 The patient was seen and examined in telemetry unit and in the COVID room He remained stable and has been waiting to go to rehab Denies any significant symptoms and saturating well on room air Review of Systems Review of Systems: All systems reviewed and are unremarkable except as noted below Musculoskeletal: Generally weak and lethargic Physical Exam Physical Exam: Lying in bed comfortably Constitutional: well developed and well nourished; not ill appearing Eyes: PERRL, conjunctivae normal, anicteric sclerae ENMT: external ear and nose normal, oropharynx normal Neck: trachea midline, no thyromegaly Respiratory: no respiratory distress Auscultation: lungs clear to auscultation bilaterally and + diminished lung sounds Cardiovascular: Rate/Rhythm: regular rate and regular rhythm; not tachycardic Heart Sounds: normal S1 and normal S2; no murmur Extremities: + edema (Trace edema bilaterally) Gastrointestinal (Abdomen): Inspection/Auscultation: normal bowel sounds; abdomen not distended Percussion/Palpation: abdomen soft; abdomen nontender Musculoskeletal: No acute arthritis in any joint Neurologic: Alert, awake and oriented x3. Generally weak Results & Data Results & Data ([facility]) Vital Signs (Past 12 Hours) Vital Signs Temp Pulse Resp BP BP Pulse Ox Pulse Ox 01/14/22 09:00 95 01/14/22 08:22 36.9 C 91 H 16 119/69 97 01/14/22 03:25 36.6 C 63 18 123/69 96 Medications Administered Current Inpatient Medications Acetaminophen (Acetaminophen 325 Mg Tab) 650 mg PO Q4H PRN PRN Reason: Pain or Fever Stop: 01/29/22 02:45 Aspirin (Aspirin 81 Mg Ectab) 81 mg PO DAILY [facility] Stop: 01/29/22 08:59 Last Admin: 01/14/22 08:09 Dose: 81 mg Documented by: Clopidogrel Bisulfate (Clopidogrel Bisulfate 75 Mg Tab) 75 mg PO DAILY [facility] Stop: 01/29/22 08:59 Last Admin: 01/14/22 08:09 Dose: 75 mg Documented by: Ezetimibe (Ezetimibe 10 Mg Tablet) 10 mg PO DAILY [facility] Stop: 01/29/22 08:59 Last Admin: 01/14/22 08:10 Dose: 10 mg Documented by: Fenofibrate (Fenofibrate Nanocrystallized 145 Mg Tablet) 145 mg PO DAILY [facility] Stop: 01/30/22 12:29 Last Admin: 01/14/22 08:09 Dose: 145 mg Documented by: Finasteride (Finasteride 5 Mg Tab) 5 mg PO DAILY [facility] Stop: 01/29/22 08:59 Last Admin: 01/14/22 08:10 Dose: 5 mg Documented by: Promethazine HCl 6.25 mg/ (Sodium Chloride) 50.25 mls @ 201 mls/hr IV Q6H PRN PRN Reason: Nausea And Vomiting Stop: 01/29/22 02:45 Heparin Sodium/Dextrose (Heparin Sodium/Dextrose) 25,000 units in 500 mls @ 0 mls/hr IV .Q0M [facility]; Protocol Stop: 01/29/22 04:29 Last Admin: 01/08/22 10:20 Dose: Not Given Documented by: Isosorbide Mononitrate (Isosorbide [place] Extended Rel 60 Mg Tabcr) 60 mg PO DAILY [facility] Stop: 01/29/22 08:59 Last Admin: 01/14/22 08:11 Dose: 60 mg Documented by: Levothyroxine Sodium (Levothyroxine Sodium 75 Mcg Tablet) 75 mcg PO DAILYBB [facility] Stop: 01/29/22 06:29 Last Admin: 01/14/22 05:35 Dose: 75 mcg Documented by: Metoprolol Succinate (Metoprolol Succ 25mg Ext Rel Tab) 12.5 mg PO BID [facility] Stop: 01/29/22 08:59 Last Admin: 12/31/21 10:21 Dose: 12.5 mg Documented by: Multivitamins (Multivitamin Tab) 1 tab PO DAILY [facility] Stop: 01/29/22 08:59 Last Admin: 01/14/22 08:10 Dose: 1 tab Documented by: Pantoprazole Sodium (Pantoprazole 40 Mg Tab) 40 mg PO DAILY [facility] Stop: 01/29/22 08:59 Last Admin: 01/14/22 08:09 Dose: 40 mg Documented by: Phenazopyridine HCl (Phenazopyridine Hcl 100 Mg Tab) 100 mg PO TID PRN PRN Reason: Dysuria Stop: 01/31/22 22:54 Last Admin: 01/11/22 09:39 Dose: 100 mg Documented by: Potassium Chloride (Potassium Chloride Crtab 20 Meq Tabcr) 40 meq PO DAILY [facility] Stop: 02/02/22 08:59 Last Admin: 01/14/22 09:51 Dose: 40 meq Documented by: Tamsulosin HCl (Tamsulosin Hcl 0.4 Mg Cap) 0.4 mg PO HS [facility] Stop: 02/02/22 20:59 Last Admin: 01/13/22 21:09 Dose: 0.4 mg Documented by: (1) Atrial flutter Atrial flutter type: atypical Qualified Code(s): I48.4 - Atypical atrial flutter
[2022-01-14] MEDS: TAMSULOSIN HCL 0.4 MG CAP PO SCH (20:52)
[2022-01-15] MEDS: LEVOTHYROXINE SODIUM 75 MCG TABLET PO SCH (05:41)
[2022-01-15] MEDS: FINASTERIDE 5 MG TAB PO SCH (08:53)
[2022-01-15] MEDS: FENOFIBRATE NANOCRYSTALLIZED 145 MG TABLET PO SCH (08:53)
[2022-01-15] MEDS: CLOPIDOGREL BISULFATE 75 MG TAB PO SCH (08:53)
[2022-01-15] MEDS: EZETIMIBE 10 MG TABLET PO SCH (08:53)
[2022-01-15] MEDS: ASPIRIN 81 MG ECTAB PO SCH (08:53)
[2022-01-15] MEDS: ISOSORBIDE MONO EXTENDED REL 60 MG TABCR PO SCH (08:54)
[2022-01-15] MEDS: PANTOprazole 40 MG TAB PO SCH (08:54)
[2022-01-15] MEDS: MULTIVITAMIN TAB PO SCH (08:54)
[2022-01-15] MEDS: POTASSIUM CHLORIDE CRTAB 20 MEQ TABCR PO SCH (08:58)
--- NOTE | 2022-01-15 14:30 | Hospitalist Progress Note ---
Date of Service January 15, 2022 Assessment & Plan (1) Encephalopathy: Plan: Acute Metabolic encephalopathy Recent cognitive decline for the last 6-month as per the daughter Admitting CT head: No acute findings Remains alert awake and oriented on admission. Respiratory status is stable. Patient will need formal neurological evaluation as an outpatient when this acute episode has resolved He remains pleasantly confused without any delirium Hematuria Per RN, patient has hematuria and clots were noted on 2/10 a.m. Likely secondary to traumatic catheterization attempt early in the admission. Continue Flomax and finasteride. Monitor H&H. Heparin drip stopped, urology consulted, appreciate recommendation, will need outpatient urology follow-up. Currently no hematuria. Hb stable No more hematuria reported Hypertension - BP ok overall Dyslipidemia - statin intolerance - Continue fenofibrate (2) COVID-19: Plan: He is vaccinated Sick contact of COVID-19 at home Did not require any treatment Has been saturating normally on room air Will be transferred to skilled care facility tomorrow (3) Atrial flutter: Plan: Likely in the setting of COVID infection -(+) 3 sec pauses noted December 31, none noted after - Metoprolol held, discussed with cardiology 01/08, since heart rate fairly controlled under 100, no need to resume. - Heart rate controlled, a flutter - Heparin IV DC'd 01/09 due to hematuria and is not a care home candidate for anticoagulation per cardiology. SCDs while in hospital. Mobilize every 2-3 hours. - Per prior Dr. Manzanares, stop metoprolol and DC hep drip at DC and not a candidate for press tender long goods anticoagulation - Cardiology evaluated, might require pacer placement down the road -Will need cardiology evaluation as an outpatient (4) CAD (coronary artery disease): Plan: #. CAD s/p CABG and stenting, PVD - continue ASA and Plavix (5) GERD (gastroesophageal reflux disease): (6) HTN (hypertension): Plan: PT/OT eval: recommend 21/06 care DVT prophylaxis. SCDs, heparin drip stopped due to hematuria. DNR as per patient's prior wishes as per daughter, Ms. Kendy Gramajo. Disposition: Medically stable, awaiting placement. Admission and Anticipated Discharge Date Admission Date: December 31, 2021 Subjective 01/14/2022 The patient was seen and examined in telemetry unit and in the COVID room He remained stable and has been waiting to go to rehab Denies any significant symptoms and saturating well on room air 01/15/2022 The patient was seen and examined in telemetry unit and in the COVID room He has been stable and remains pleasantly confused Denies any symptoms and has been saturating normally on room air Review of Systems Review of Systems: All systems reviewed and are unremarkable except as noted below Musculoskeletal: Generally weak and lethargic Physical Exam Physical Exam: Sitting on a chair without any acute distress Constitutional: well developed and well nourished; not ill appearing Eyes: PERRL, conjunctivae normal, anicteric sclerae ENMT: external ear and nose normal, oropharynx normal Neck: trachea midline, no thyromegaly Respiratory: no respiratory distress Auscultation: lungs clear to auscultation bilaterally and + diminished lung sounds Cardiovascular: Rate/Rhythm: regular rate and regular rhythm; not tachycardic Heart Sounds: normal S1 and normal S2; no murmur Extremities: + edema (Trace edema bilaterally) Gastrointestinal (Abdomen): Inspection/Auscultation: normal bowel sounds; abdomen not distended Percussion/Palpation: abdomen soft; abdomen nontender Musculoskeletal: No acute arthritis in any joint Neurologic: Alert and awake. Pleasantly confused Results & Data Results & Data ([facility]) Vital Signs (Past 12 Hours) Vital Signs Temp Pulse Pulse Resp BP BP Pulse Ox 01/15/22 11:26 36.5 C 93 H 18 120/78 94 01/15/22 09:00 01/15/22 07:31 36.6 C 67 18 130/70 95 01/15/22 04:17 70 01/15/22 03:29 36.6 C 62 15 130/72 97 Pulse Ox 01/15/22 11:26 01/15/22 09:00 96 01/15/22 07:31 01/15/22 04:17 01/15/22 03:29 Medications Administered Current Inpatient Medications Acetaminophen (Acetaminophen 325 Mg Tab) 650 mg PO Q4H PRN PRN Reason: Pain or Fever Stop: 01/29/22 02:45 Aspirin (Aspirin 81 Mg Ectab) 81 mg PO DAILY [facility] Stop: 01/29/22 08:59 Last Admin: 01/15/22 08:53 Dose: 81 mg Documented by: Clopidogrel Bisulfate (Clopidogrel Bisulfate 75 Mg Tab) 75 mg PO DAILY [facility] Stop: 01/29/22 08:59 Last Admin: 01/15/22 08:53 Dose: 75 mg Documented by: Ezetimibe (Ezetimibe 10 Mg Tablet) 10 mg PO DAILY [facility] Stop: 01/29/22 08:59 Last Admin: 01/15/22 08:53 Dose: 10 mg Documented by: Fenofibrate (Fenofibrate Nanocrystallized 145 Mg Tablet) 145 mg PO DAILY [facility] Stop: 01/30/22 12:29 Last Admin: 01/15/22 08:53 Dose: 145 mg Documented by: Finasteride (Finasteride 5 Mg Tab) 5 mg PO DAILY [facility] Stop: 01/29/22 08:59 Last Admin: 01/15/22 08:53 Dose: 5 mg Documented by: Promethazine HCl 6.25 mg/ (Sodium Chloride) 50.25 mls @ 201 mls/hr IV Q6H PRN PRN Reason: Nausea And Vomiting Stop: 01/29/22 02:45 Heparin Sodium/Dextrose (Heparin Sodium/Dextrose) 25,000 units in 500 mls @ 0 mls/hr IV .Q0M [facility]; Protocol Stop: 01/29/22 04:29 Last Admin: 01/08/22 10:20 Dose: Not Given Documented by: Isosorbide Mononitrate (Isosorbide [place] Extended Rel 60 Mg Tabcr) 60 mg PO DAILY [facility] Stop: 01/29/22 08:59 Last Admin: 01/15/22 08:54 Dose: 60 mg Documented by: Levothyroxine Sodium (Levothyroxine Sodium 75 Mcg Tablet) 75 mcg PO DAILYBB [facility] Stop: 01/29/22 06:29 Last Admin: 01/15/22 05:41 Dose: 75 mcg Documented by: Metoprolol Succinate (Metoprolol Succ 25mg Ext Rel Tab) 12.5 mg PO BID [facility] Stop: 01/29/22 08:59 Last Admin: 12/31/21 10:21 Dose: 12.5 mg Documented by: Multivitamins (Multivitamin Tab) 1 tab PO DAILY [facility] Stop: 01/29/22 08:59 Last Admin: 01/15/22 08:54 Dose: 1 tab Documented by: Pantoprazole Sodium (Pantoprazole 40 Mg Tab) 40 mg PO DAILY [facility] Stop: 01/29/22 08:59 Last Admin: 01/15/22 08:54 Dose: 40 mg Documented by: Phenazopyridine HCl (Phenazopyridine Hcl 100 Mg Tab) 100 mg PO TID PRN PRN Reason: Dysuria Stop: 01/31/22 22:54 Last Admin: 01/11/22 09:39 Dose: 100 mg Documented by: Potassium Chloride (Potassium Chloride Crtab 20 Meq Tabcr) 40 meq PO DAILY [facility] Stop: 02/02/22 08:59 Last Admin: 01/15/22 08:58 Dose: 40 meq Documented by: Tamsulosin HCl (Tamsulosin Hcl 0.4 Mg Cap) 0.4 mg PO HS [facility] Stop: 02/02/22 20:59 Last Admin: 01/14/22 20:52 Dose: 0.4 mg Documented by: (1) Atrial flutter Atrial flutter type: atypical Qualified Code(s): I48.4 - Atypical atrial flutter
[2022-01-15] MEDS: TAMSULOSIN HCL 0.4 MG CAP PO SCH (19:42)
[2022-01-16] MEDS: LEVOTHYROXINE SODIUM 75 MCG TABLET PO SCH (05:30)
[2022-01-16 07:19] LABS: Basophils # (auto) 0.03 K/uL (0-0.2); Basophils % (auto) 0.3 %; Eosinophils # (auto) 0.28 K/uL (0-0.5); Eosinophils % (auto) 2.5 %; Hematocrit (blood only) 42.2 % (42-52); Hemoglobin 14.1 g/dL (14.0-18.0); Immature Granulocytes # (auto) 0.16 K/uL (0.00-0.02); Immature Granulocytes % (auto) 1.4 %; Lymphocytes # (auto) 2.73 K/uL (1.2-3.4); Lymphocytes % (auto) 24.2 %; Mean Corpuscular Hemoglobin 30.7 pg (25-34); Mean Corpuscular Hgb Conc 33.4 g/dL (32-36); Mean Corpuscular Volume 91.9 fL (80-100); Mean Platelet Volume 11.7 fL (7.4-10.4); Monocytes % (auto) 8.9 %; Neutrophils # (auto) 7.08 K/uL (1.4-6.5); Neutrophils % (auto) 62.7 %; Platelet Count 272 K/uL (130-400); RDW Coefficient of Variation 14.6 % (11.5-14.5); RDW Standard Deviation 48.8 fL (36.4-46.3); Red Blood Count 4.59 M/uL (4.7-6.1); White Blood Count 11.28 K/uL (4.8-10.8)
[2022-01-16 07:32] LABS: BUN Creatinine Ratio 23.5 (10-20); Calcium 9.5 mg/dl (8.5-10.1); Creatinine Clr Calc Pharmacy 57.3 ml/min; Est GFR (African American) 81.2 ml/min; Est GFR (Non-African American) 70.1 ml/min; Potassium 4.2 mmol/L (3.5-5.1)
[2022-01-16] MEDS: ISOSORBIDE MONO EXTENDED REL 60 MG TABCR PO SCH (08:09)
[2022-01-16] MEDS: ASPIRIN 81 MG ECTAB PO SCH (08:09)
[2022-01-16] MEDS: FENOFIBRATE NANOCRYSTALLIZED 145 MG TABLET PO SCH (08:10)
[2022-01-16] MEDS: CLOPIDOGREL BISULFATE 75 MG TAB PO SCH (08:10)
[2022-01-16] MEDS: MULTIVITAMIN TAB PO SCH (08:10)
[2022-01-16] MEDS: PANTOprazole 40 MG TAB PO SCH (08:10)
[2022-01-16] MEDS: EZETIMIBE 10 MG TABLET PO SCH (08:10)
[2022-01-16] MEDS: FINASTERIDE 5 MG TAB PO SCH (08:10)
[2022-01-16] MEDS: POTASSIUM CHLORIDE CRTAB 20 MEQ TABCR PO SCH (08:14)
--- NOTE | 2022-01-16 10:26 | Hospitalist Progress Note ---
Date of Service January 16, 2022 Assessment & Plan (1) Encephalopathy: Plan: Acute Metabolic encephalopathy Recent cognitive decline for the last 6-month as per the daughter Admitting CT head: No acute findings Remains alert awake and oriented on admission. Respiratory status is stable. Patient will need formal neurological evaluation as an outpatient when this acute episode has resolved He remains pleasantly confused without any delirium Remains stable to be transferred Hematuria Per RN, patient has hematuria and clots were noted on 2/10 a.m. Likely secondary to traumatic catheterization attempt early in the admission. Continue Flomax and finasteride. Monitor H&H. Heparin drip stopped, urology consulted, appreciate recommendation, will need outpatient urology follow-up. Currently no hematuria. Hb stable No more hematuria reported Hypertension - BP ok overall Dyslipidemia - statin intolerance - Continue fenofibrate (2) COVID-19: Plan: He is vaccinated Sick contact of COVID-19 at home Did not require any treatment Has been saturating normally on room air Will be transferred to skilled care facility tomorrow Denies any respiratory symptoms (3) Atrial flutter: Plan: Likely in the setting of COVID infection -(+) 3 sec pauses noted December 31, none noted after - Metoprolol held, discussed with cardiology 01/08, since heart rate fairly controlled under 100, no need to resume. - Heart rate controlled, a flutter - Heparin IV DC'd 01/09 due to hematuria and is not a ocean transportation intermediary candidate for anticoagulation per cardiology. SCDs while in hospital. Mobilize every 2-3 hours. - Per prior Dr. Manzanares, stop metoprolol and DC hep drip at DC and not a candidate for ocean transportation intermediary anticoagulation - Cardiology evaluated, might require pacer placement down the road -Will need cardiology evaluation as an outpatient -Echo of the heart showed; atrial flutter, normal LV chamber size with mild concentric LVH, moderately reduced LV systolic function with moderate global hypokinesis, EF 40 to 45%, RV cavity size and normal, reduced RV systolic function by TAPSE, mild aortic regurgitation -He remains free of any cardiac symptoms (4) CAD (coronary artery disease): Plan: #. CAD s/p CABG and stenting, PVD - continue ASA and Plavix (5) GERD (gastroesophageal reflux disease): (6) HTN (hypertension): Plan: PT/OT eval: recommend 24/7 care DVT prophylaxis. SCDs, heparin drip stopped due to hematuria. DNR as per patient's prior wishes as per daughter, Ms. Kendy Gramajo. Will be transferred to [facility] today Admission and Anticipated Discharge Date Admission Date: December 31, 2021 Subjective 01/14/2022 The patient was seen and examined in telemetry unit and in the COVID room He remained stable and has been waiting to go to rehab Denies any significant symptoms and saturating well on room air 01/15/2022 The patient was seen and examined in telemetry unit and in the COVID room He has been stable and remains pleasantly confused Denies any symptoms and has been saturating normally on room air 01/16/2022 The patient was seen and examined in telemetry unit and in the COVID room He remained stable and denies any significant symptoms Remains pleasantly confused Review of Systems Review of Systems: All systems reviewed and are unremarkable except as noted below Physical Exam Constitutional: well developed and well nourished; not ill appearing Eyes: PERRL, conjunctivae normal, anicteric sclerae ENMT: external ear and nose normal, oropharynx normal Neck: trachea midline, no thyromegaly Respiratory: no respiratory distress Auscultation: lungs clear to auscultation bilaterally and + diminished lung sounds Cardiovascular: Rate/Rhythm: regular rate and regular rhythm; not tachycardic Heart Sounds: normal S1 and normal S2; no murmur Extremities: + edema (Trace edema bilaterally) Gastrointestinal (Abdomen): Inspection/Auscultation: normal bowel sounds; abdomen not distended Percussion/Palpation: abdomen soft; abdomen nontender Musculoskeletal: no cyanosis or clubbing, extremities motor strength 5/5 Neurologic: normal touch/pain/proprioception and + confused (Pleasantly c onfused) Results & Data Results & Data ([facility]) Vital Signs (Past 12 Hours) Vital Signs Temp Pulse Pulse Pulse Resp BP BP 01/16/22 08:00 36.7 C 56 L 91 H 18 113/72 01/16/22 02:52 36.4 C L 70 18 127/68 01/16/22 00:06 90 01/15/22 23:06 36.5 C 75 20 112/82 Pulse Ox 01/16/22 08:00 94 01/16/22 02:52 95 01/16/22 00:06 01/15/22 23:06 97 Laboratory Results Short CBC 01/16/22 Range/Units 06:53 WBC 11.28 H (4.8-10.8) K/uL Hgb 14.1 (14.0-18.0) g/dL Hct 42.2 (42-52) % Plt Count 272 (130-400) K/uL BMP 01/16/22 06:53 Sodium 137 Potassium 4.2 Chloride 107 Carbon Dioxide 24 BUN 24 H Creatinine 1.02 Glucose 94 Calcium 9.5 Medications Administered Current Inpatient Medications Acetaminophen (Acetaminophen 325 Mg Tab) 650 mg PO Q4H PRN PRN Reason: Pain or Fever Stop: 01/29/22 02:45 Aspirin (Aspirin 81 Mg Ectab) 81 mg PO DAILY [facility] Stop: 01/29/22 08:59 Last Admin: 01/16/22 08:09 Dose: 81 mg Documented by: Clopidogrel Bisulfate (Clopidogrel Bisulfate 75 Mg Tab) 75 mg PO DAILY [facility] Stop: 01/29/22 08:59 Last Admin: 01/16/22 08:10 Dose: 75 mg Documented by: Ezetimibe (Ezetimibe 10 Mg Tablet) 10 mg PO DAILY [facility] Stop: 01/29/22 08:59 Last Admin: 01/16/22 08:10 Dose: 10 mg Documented by: Fenofibrate (Fenofibrate Nanocrystallized 145 Mg Tablet) 145 mg PO DAILY [facility] Stop: 01/30/22 12:29 Last Admin: 01/16/22 08:10 Dose: 145 mg Documented by: Finasteride (Finasteride 5 Mg Tab) 5 mg PO DAILY [facility] Stop: 01/29/22 08:59 Last Admin: 01/16/22 08:10 Dose: 5 mg Documented by: Promethazine HCl 6.25 mg/ (Sodium Chloride) 50.25 mls @ 201 mls/hr IV Q6H PRN PRN Reason: Nausea And Vomiting Stop: 01/29/22 02:45 Heparin Sodium/Dextrose (Heparin Sodium/Dextrose) 25,000 units in 500 mls @ 0 mls/hr IV .Q0M [facility]; Protocol Stop: 01/29/22 04:29 Last Admin: 01/08/22 10:20 Dose: Not Given Documented by: Isosorbide Mononitrate (Isosorbide [place] Extended Rel 60 Mg Tabcr) 60 mg PO DAILY [facility] Stop: 01/29/22 08:59 Last Admin: 01/16/22 08:09 Dose: 60 mg Documented by: Levothyroxine Sodium (Levothyroxine Sodium 75 Mcg Tablet) 75 mcg PO DAILYBB [facility] Stop: 01/29/22 06:29 Last Admin: 01/16/22 05:30 Dose: 75 mcg Documented by: Metoprolol Succinate (Metoprolol Succ 25mg Ext Rel Tab) 12.5 mg PO BID [facility] Stop: 01/29/22 08:59 Last Admin: 12/31/21 10:21 Dose: 12.5 mg Documented by: Multivitamins (Multivitamin Tab) 1 tab PO DAILY [facility] Stop: 01/29/22 08:59 Last Admin: 01/16/22 08:10 Dose: 1 tab Documented by: Pantoprazole Sodium (Pantoprazole 40 Mg Tab) 40 mg PO DAILY [facility] Stop: 01/29/22 08:59 Last Admin: 01/16/22 08:10 Dose: 40 mg Documented by: Phenazopyridine HCl (Phenazopyridine Hcl 100 Mg Tab) 100 mg PO TID PRN PRN Reason: Dysuria Stop: 01/31/22 22:54 Last Admin: 01/11/22 09:39 Dose: 100 mg Documented by: Potassium Chloride (Potassium Chloride Crtab 20 Meq Tabcr) 40 meq PO DAILY [facility] Stop: 02/02/22 08:59 Last Admin: 01/16/22 08:14 Dose: 40 meq Documented by: Tamsulosin HCl (Tamsulosin Hcl 0.4 Mg Cap) 0.4 mg PO HS [facility] Stop: 02/02/22 20:59 Last Admin: 01/15/22 19:42 Dose: 0.4 mg Documented by: (1) Atrial flutter Atrial flutter type: atypical Qualified Code(s): I48.4 - Atypical atrial flutter
--- NOTE | 2022-01-17 08:57 | Discharge Summary ---
Date of Service January 17, 2022 Admission HPI Per Admitting Provider History obtained from patient, family, and records. Limited history from patient secondary to confusion. Medical history is significant for CAD sp CABG and stenting, PVD status post surgery, hypertension, hyperlipidemia, statin intolerance, GERD, hypothyroidism, chronic back pain sp surgery, CRI (baseline creatinine 1.3, March 2021), BPH. Patient daughter noted some decline in cognitive function the last 6 months after patient . Patient daughter wondering if patient with the beginnings of dementia. Patient has been ill the last 10 days with dry cough, fatigue, fever. Sick COVID-19 contacts at home. Patient completed COVID-19 vaccination. Poor appetite with diffuse body aches and fatigue. Patient noted to be disoriented by daughter. No slurredspeech. No arm or leg weakness. Patient brought to the ER for evaluation. Improved mentation after IV fluids administered at the ER as per daughter. MEDICAL HISTORY: As above. SURGERIES: CABG, back surgery, TURP, carotid artery stent placement, finger surgery, eye surgery FAMILY HISTORY: Hypertension. PERSONAL AND SOCIAL HISTORY: Nonsmoker, no chronic intake of alcoholic beverages. 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 Admission Exam Per Admitting Provider Physical Exam: GENERAL: Comfortable, oriented to year, slightly hard of hearing, slow to respond to questions, wane, no respiratory distress SKIN: Normal color, warm HEENT: [place] palpebral conjunctivae, no ptosis, dry buccal mucosa NECK : Supple, no tenderness CHEST : Decreased breath sounds, no tenderness HEART : RRR, no obvious murmurs ABDOMEN: Some distention, nontender EXTREMITIES : No LE swelling/tenderness, no other conspicuous deformities noted NEUROLOGIC : Oriented to year, no facial asymmetry, hard of hearing, gait and stance not assessed Principal Diagnosis Acute metabolic and colopathy-improved to baseline, COVID-19 virus infection, atrial flutter, CAD status post CABG, PVD Discharge Exam Constitutional well developed and well nourished; not ill appearing Eyes PERRL, conjunctivae normal, anicteric sclerae ENMT external ear and nose normal, oropharynx normal Neck trachea midline, no thyromegaly Respiratory no respiratory distress Auscultation: lungs clear to auscultation bilaterally and + diminished lung sounds Cardiovascular Rate/Rhythm: regular rate and regular rhythm; not tachycardic Heart Sounds: normal S1 and normal S2; no murmur Extremities: + edema (Trace edema bilaterally) Gastrointestinal (Abdomen) Inspection/Auscultation: normal bowel sounds; abdomen not distended Percussion/Palpation: abdomen soft; abdomen nontender Musculoskeletal no cyanosis or clubbing, extremities motor strength 5/5 Neurologic normal touch/pain/proprioception and + confused (Pleasantly confused) Discharge Data Allergies Allergy/AdvReac Type Severity Reaction Status Date / Time niacin Allergy Mild RASH Verified 12/29/21 21:31 Iodinated Contrast Media Allergy Unknown UNKNOWN Unverified 12/29/21 21:31 atorvastatin [From Lipitor] AdvReac Unknown INTOLERANT Verified 12/29/21 23:14 Consultations 12/29/21 22:24 ED Decision to Admit Stat 12/30/21 02:46 Consult Cardiology Routine 01/08/22 07:11 Consult Urology Routine Ordered Studies 12/30/21 00:21 CT head/brain wo con Urgent Hospital Course (1) Encephalopathy: Acute Metabolic encephalopathy Recent cognitive decline for the last 6-month as per the daughter Admitting CT head: No acute findings Remains alert awake and oriented on admission. Respiratory status is stable. Patient will need formal neurological evaluation as an outpatient when this acute episode has resolved He remains pleasantly confused without any delirium Remains stable to be transferred Hematuria Per RN, patient has hematuria and clots were noted on 210 a.m. Likely secondary to traumatic catheterization attempt early in the admission. Continue Flomax and finasteride. Monitor H&H. Heparin drip stopped, urology consulted, appreciate recommendation, will need outpatient urology follow-up. Currently no hematuria. Hb stable No more hematuria reported Hypertension - BP ok overall Dyslipidemia - statin intolerance - Continue fenofibrate (2) COVID-19: He is vaccinated Sick contact of COVID-19 at home Did not require any treatment Has been saturating normally on room air Will be transferred to skilled care facility tomorrow Denies any respiratory symptoms (3) Atrial flutter: Likely in the setting of COVID infection -(+) 3 sec pauses noted December 31, none noted after - Metoprolol held, discussed with cardiology 01/08, since heart rate fairly controlled under 100, no need to resume. - Heart rate controlled, a flutter - Heparin IV DC'd 01/09 due to hematuria and is not a prison candidate for anticoagulation per cardiology. SCDs while in hospital. Mobilize every 2-3 hours. - Per prior Dr. 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 CAD s/p CABG and stenting, PVD - continue ASA and Plavix (5) GERD (gastroesophageal reflux disease): (6) HTN (hypertension): PT/OT eval: recommend 21/06 care DVT prophylaxis. SCDs, heparin drip stopped due to hematuria. DNR as per patient's prior wishes as per daughter, Ms. Kendy Gramajo. Will be transferred to [facility] today Total Time Total Time Spent Total Time Spent (In Minutes): 35 minutes Discharge Plan Discharge Items Patient Disposition: Transfer Assisted Fac Reason For Visit: AFL, COVID Discharge Diagnosis: Acute metabolic and colopathy-improved to baseline, COVID-19 virus infection, atrial flutter, CAD status post CABG, PVD Condition on Discharge: Fair Activity: Resume your previous activity Non-emergency contact: Primary Care Provider Call non-emergency contact if: you have any medication questions and your symptoms worsen Follow-up/Referrals: Stanford Hansen MD [Primary Care Provider] - (Date & Time 01/21/2022 3:20 PM Provider Stanford Hansen MD Department Family Practice [facility] ) Diet: Heart Healthy Addtl Attending Provider Instructions: Please take precautions to avoid fall Take your medications as advised Your amlodipine has been stopped and metoprolol has been increased to twice daily Your new medicine is going to be tamsulosin Please give appointment with your primary care provider Cardiology appointment is on 01/26/2022 at 10:30 AM Pending Studies at Discharge: No Stand-Alone Forms: My Video [employer] Skilled Items Patient informed of condition?: Yes DNR: Yes Discharge Level of Care: Skilled Communicable Disease: No Discharge Prognosis: Stable Lines: None Urinary Catheter: No Medications and DC Order Prescriptions: New tamsulosin 0.4 mg Capsule 0.4 mg PO HS 30 Days Qty: 30 RF: 0 metoprolol succinate 25 mg Tablet Extended Release 24 Hr 12.5 mg PO BID 30 Days Qty: 30 RF: 0 Continued FINASTERIDE (PROSCAR) 5 MG tablet 5 mg PO DAILY 30 Days Qty: 30 RF: 11 Alirocumab (Praluent) 75 MG/ML INJECTION 1 dose SC every 2 weeks 30 Days Qty: 0 RF: 0 Acetaminophen (Tylenol) 500 MG tablet 500 mg PO Q4 PRN (Reason: Pain or Fever) 10 Days Qty: 30 RF: 0 Clopidogrel (Plavix) 75 MG tablet 75 mg PO DAILY 30 Days Qty: 30 RF: 0 Fenofibrate (Tricor) 200 MG capsule 200 mg PO DAILY 30 Days Qty: 30 RF: 0 Fish Oil ([place]-3) 1 EA capsule 3,000 mg PO DAILY 30 Days Qty: 30 RF: 0 LEVOTHYROXINE SODIUM (SYNTHROID) 50 MCG tablet 75 mcg PO DAILY 30 Days Qty: 45 RF: 0 Nitroglycerin (Nitrostat) 0.4 MG tablet 0.4 mg UT PRN 30 Days Qty: 25 RF: 0 OMEPRAZOLE (PRILOSEC) 20 MG CONTR REL CAP 20 mg PO DAILY 30 Days Qty: 30 RF: 0 Changed (DME) Aspirin Enteric Coated (Ecotrin Or Generic *) ENTERIC COATED TAB See Rx Instructions .Route .MEDSUPPLY Qty: 1 RF: 0 (DME) Ezetimibe (Zetia) tablet See Rx Instructions .Route .MEDSUPPLY Qty: 1 RF: 0 (DME) Isosorbide Mononitrate Ext Rel (Imdur Ext Rel) EXT REL TAB See Rx Instructions .Route .MEDSUPPLY Qty: 1 RF: 0 (DME) Multivitamin tablet See Rx Instructions .Route .MEDSUPPLY Qty: 1 RF: 0 Discontinued Metoprolol Succ (Toprol Xl) (Toprol-Xl) 25 MG [id number] 12.5 mg PO QPM Qty: 30 RF: 0 Amlodipine (Norvasc) 5 MG tablet 5 mg PO BID Qty: 0 RF: 0 Discharge Orders: Discharge Order (Routine); Ordered 01/16/22 Ordered By: Dillan Heredia/Other Patient Handouts: A1C Admission Data Admit Date/Time: 12/31/21 07:57 Attending Provider: Dillan Perea Admit Provider: Rodney Russell Primary Care Provider: Stanford Hansen Other Providers: Rodney Russell ; Andrzej Zuñiga ; Mario Lin ; Geoff Ríos ; Amado Jackson ; Tam Swann ; Jamshid Ortiz ; Jeane Prescott ; Izzy Mcnamara ; Ana Guy ; Chepe Ardon ; Brooke Carney ; Rich Duran ; Abdifatah Good Other Interventions: Discharge Summary Assessment (RN) Last Done: 01/16/22 10:36 Home Health Attestation I certify that this patient is under my care and that I, or a physicians racheal jhaveri working with me, had a face to-face encounter that meets the home health [id number] encounter requirements with this patient. The encounter with the patient was in whole, or in part, for the following medical condition, which is the primary reason for home health care (list medical condition): I certify that, based on my findings, the following services are medically necessary home health services: My clinical findings support the need for the above services because: Further, I certify that my clinical findings support that this patient is homebound (i.e. absences from home require considerable and taxing effort and are for medical reasons or taoism services or infrequently or of short duration when for other reasons) because: Certification for Home Health Services: Based on the above findings, I certify that this patient is confined to the home and needs intermittent correction care, physical therapy and/or speech therapy or continues to need occupational therapy. The patient is under my care, and I have initiated the establishment of the plan of care. This patient will be followed by a physician who will periodically review the plan of care.
== END 2022-01-16 12:21 | disposition home or self-care (01) | DRG 308 ==
LOC: 2S 20:31 → ED 20:31 → SUATTDRO 12-30 00:28 → 2S 12-30 02:34 → SUATTDRO 12-31 07:57 → 2S 01-02 18:01

== ENCOUNTER 2023-10-10 09:08 | Inpatient (IN) ==
[2023-10-10] MEDS ORDERED: SODIUM CHLORIDE 0.9% 500 ML IV SCH (09:45)
[2023-10-10 09:48] LABS: Basophils # (auto) 0.02 K/uL (0.00-0.20); Basophils % (auto) 0.2 %; Eosinophils # (auto) 0.06 K/uL (0.00-0.50); Eosinophils % (auto) 0.5 %; Hemoglobin 12.6 g/dl (14.0-18.0); Immature Granulocytes # (auto) 0.09 K/uL (0.01-0.20); Immature Granulocytes % (auto) 0.8 %; Lymphocytes % (auto) 14.9 %; Mean Corpuscular Hgb Conc 33.2 g/dL (32.0-36.0); Mean Corpuscular Volume 93.6 fL (80.0-100.0); Mean Platelet Volume 12.5 fL (9.4-12.4); Monocytes # (auto) 0.63 K/uL (0.11-0.59); Monocytes % (auto) 5.5 %; Neutrophils # (auto) 8.89 K/uL (1.40-6.50); Neutrophils % (auto) 78.1 %; Platelet Count 199 K/uL (130-400); RDW Coefficient of Variation 14.2 % (11.5-14.5); RDW Standard Deviation 48.7 fL (36.4-46.3); Red Blood Count 4.06 M/uL (4.70-6.10); White Blood Count 11.39 K/ul (4.8-10.8)
[2023-10-10 09:53] LABS: Alanine Aminotransferase 18 U/L (7-52); Albumin Globulin Ratio 1.6 (0.9-2); Albumin Level 3.8 gm/dl (3.4-5.0); Alkaline Phosphatase 37 U/L (34-104); Anion Gap 7 (3-11); Aspartate Aminotransferase 27 U/L (13-39); BUN Creatinine Ratio 22.8 (10-20); Bilirubin,Total 0.6 mg/dl (0.2-1.0); Blood Urea Nitrogen 23 mg/dl (6-23); Calcium 9.7 mg/dl (8.6-10.3); Carbon Dioxide 24 mmol/L (21-32); Chloride 107 mmol/L (98-107); Est GFR (African American) 81.6 ml/min; Est GFR (Non-African American) 70.4 ml/min; Globulin 2.4 gm/dl (2.5-4.0); Glucose 100 mg/dl (70-99(Fasting)); Magnesium 2.1 mg/dl (1.7-2.4); Potassium 3.7 mmol/L (3.5-5.1); Sodium 138 mmol/L (136-145); Total Protein 6.2 gm/dl (6.0-8.3)
--- NOTE | 2023-10-10 10:03 | Emergency Department Note ---
Impression & Plan Altered mental status, Somnolence, Leukocytosis, Anemia ED Provider Note NAME: MARIPOSA MERCEDES AGE: 77 SEX: M : 1945 ARRIVES VIA: Ambulance INFORMANT: [Patient][ems, nurses] ED PROVIDER(S): [Ronny Stearns MD] CHIEF COMPLAINT: Lethargic HISTORY OF PRESENT ILLNESS: The patient is a 77-year-old male who resides at [place]. The patient was found to be altered, slow and lethargic this morning. There was concern that he may have received the wrong meds last evening. Patient can really provide only minimal history. He can follow some simple commands but is quite sleepy. No recent report of cough or congestion or flulike symptoms. No report of trauma. PMHx/PSHx/Social Hx: See Below PHYSICAL EXAM: GENERAL: Patient is in no acute distress. HEENT: No acute trauma, normocephalic atraumatic, mucous membranes moist, no nasal congestion. Pupils are about 1 mm but equal bilaterally. NECK: No stridor, no adenopathy, no meningismus, trachea is midline. LUNGS: Clear to auscultation bilaterally when listening anterior, no wheeze, no rhonchi, breath sounds equal. HEART: Slightly irregular, bradycardic, no obvious murmur. Heart tones are distant. ABDOMEN: Soft, nontender, no peritonitis. No abdominal distention. EXTREMITIES: No cyanosis, full range of motion of all the joints without pain or difficulty. NEUROLOGIC: Somnolent, wakes to voice or touch. No obvious focal motor deficit. SKIN: No jaundice, no diaphoresis. DIFFERENTIAL DIAGNOSIS: Medication reaction, intracranial bleeding, UTI, stroke, electrolyte imbalance, dehydration, viral illness, metabolic derangement, among others. EMERGENCY DEPARTMENT PROCEDURES: MEDICAL DECISION MAKING: There is a mild leukocytosis, this could be consistent with infection or the stress of his current presentation. The patient does have a mild anemia, this appears baseline. There was a normal platelet count. No renal failure or significant electrolyte abnormality. Lactic acid level is not elevated making severe sepsis less likely. No concerning liver enzyme elevation. Ammonia level was not elevated. The patient appeared to be in a euthyroid state. ECG showed atrial flutter which is a part of the patient's past medical history. There was no obvious acute ischemia. Cardiac enzyme testing x1 is not consistent with acute cardiac injury. Urinalysis showed some hematuria, likely from his straight cath. No findings of infection. Urine tox was negative. Valproic acid level was undetectable. Alcohol level was undetectable. Respiratory bio fire was completely negative. Chest film showed some chronic change, no pneumonia. Brain CT showed no acute bleed or mass effect. On exam, patient was able to wake to voice, he seemed quite somnolent. The patient received a 500 cc saline bolus for hydration. He was given 0.4 mg of IV Narcan with maybe some slight improvement in his mentation. The cause for the patient's presentation is not completely clear. There was concern at his care center that he may have received the wrong medications last evening. The patient is in need of a hospital stay. He requires observation, hopefully, his mental state will improve with time alone. I did speak with the patient and case management, the on-call hospitalist was consulted. Prior/Outside records/notes reviewed: EMS notes. ECG per my interpretation: Indication was lethargy. The ECG shows atrial flutter with a variable AV block. The rate is 49. There is potential old septal infarct. A PVC is present. There is no obvious ST elevation. QTc is 419. Compared to an ECG from 25 July 2023, the QRS duration has increased, the rate has slowed. A PVC is now present. Continuous Cardiac Monitoring per my interpretation: An order was placed for continuous cardiac monitoring. The monitor shows a rate of 54 with atrial flutter. Imaging/x-ray results per my interpretation: Chest x-ray shows cardiomegaly, no CHF or pneumonia. Chronic Medical/Social conditions affecting care: Dementia, group home patient. Care/Management discussed with: Case management, the on-call hospitalist-Dr. Sparks. Level of care consideration(s): After review of the information above and other included data: --I believe the patient requires escalation of care to admission Critical Care Note: I have personally spent 45 minutes of critical care time in the direct management of this patient. This includes bedside care, interpretation of diagnostic studies, and testing, discussion with consultants, patient, and family members, and other required patient management activities. This 45 minutes is in excess of all separately billable procedures. DISPOSITION: Admission Past Med/Surg History Medical History Vitamin D deficiency Vitamin B12 deficiency Dementia DDD (degenerative disc disease) Carotid stenosis, right "s/p R carotid stent placement" Hypothyroidism HTN (hypertension) Surgical History H/O colonoscopy History of heart surgery History of removal of cyst (03/17/22) Skin, back of neck cyst, excision: Dr. Lomas - Seborrheic keratosis - Ruptured epidermoid cyst History of wisdom tooth extraction Stented coronary artery Family History Mother Dementia Grandmother (Maternal) Psychiatric hospitalization Denies family history of Ovarian cancer Osteoporosis Myocardial infarction Breast cancer Colorectal cancer Social History Smoking Status: Never smoker Second Hand Exposure: No; Do You Dip or Chew Tobacco: No; Hx Alcohol Use: No Hx Substance Use: No Preferred Language: Amharic Communication Ability: Effective Well Surveying Engineer Required: No Beliefs That Will Affect Care: None marital status: / Current Living Situation: Personal Care Facility Current Living Situation Comment: unknown current occupational status: retired How many Children do You have: 4 Feels Safe at Home: No Childhood Exposure to Second-Hand Smoke: No Diet: regular caffeine: Yes Dental Care, Regularly: No Physical Activity Frequency: Daily Seatbelt Use: always Sunscreen Use: Yes (sometimes) Assistive Devices: None Allergies Allergies Allergy/AdvReac Type Severity Reaction Status Date / Time niacin Allergy Mild RASH Verified 08/26/23 09:45 Iodinated Contrast Media Allergy Unknown UNKNOWN Verified 08/26/23 09:45 atorvastatin [From Lipitor] AdvReac Unknown INTOLERANT Verified 08/26/23 09:45 Home Meds Home Medications Medication Instructions Recorded Confirmed acetaminophen 500 mg tablet 500 mg PO Q4H PRN fever or pain 01/28/22 10/10/23 aspirin 81 mg tablet,delayed 81 mg PO DAILY 01/28/22 10/10/23 release (Adult Low Dose Aspirin) clopidogrel 75 mg tablet 75 mg PO DAILY 01/28/22 10/10/23 ezetimibe 10 mg tablet 10 mg PO DAILY cholesterol 01/28/22 10/10/23 nitroglycerin 0.4 mg sublingual 0.4 mg sublingual .COMPLEX PRN 01/28/22 10/10/23 tablet chest pain omega 4-ves-wff-fish oil 1,000 mg 3 cap PO DAILY 01/28/22 10/10/23 (120 mg-180 mg) capsule (Fish Oil) multivitamin with folic acid 400 1 tab PO DAILY 07/25/23 10/10/23 mcg tablet (Daily-Sathya (with folic acid)) divalproex 125 mg tablet,delayed 125 mg PO BID 08/17/23 10/10/23 release alirocumab 75 mg/mL subcutaneous 75 mg subcut .[id number] 10/10/23 10/10/23 pen injector (Praluent Pen) Previous Rx's Medication Instructions Recorded cholecalciferol (vitamin D3) 25 25 mcg PO DAILY #90 caps 01/13/23 mcg (1,000 unit) capsule metoprolol succinate 25 mg 12.5 mg (1/2 x 25 mg) PO BID #90 06/03/23 tablet,extended release 24 hr tabs escitalopram oxalate 5 mg tablet 5 mg PO DAILY #90 tabs 06/25/23 (Lexapro) isosorbide mononitrate 60 mg 60 mg PO DAILY #28 tabs 06/25/23 tablet,extended release 24 hr mirabegron 50 mg tablet,extended 50 mg PO DAILY #30 tabs 06/28/23 release 24 hr (Myrbetriq) memantine 10 mg tablet See Rx Instructions .Route 07/27/23 .COMPLEX #56 tabs levothyroxine 75 mcg tablet 75 mcg PO DAILY #90 tabs 08/24/23 fenofibrate micronized 200 mg 200 mg PO DAILY HTN #90 caps 09/24/23 capsule finasteride 5 mg tablet 5 mg PO DAILY #90 tabs 09/24/23 omeprazole 20 mg capsule,delayed 20 mg PO DAILY GERD #90 caps 09/24/23 release tamsulosin 0.4 mg capsule 0.4 mg PO HS #90 caps 09/24/23 trazodone 150 mg tablet 150 mg PO HS #90 tabs 09/24/23 Results & Data (ED) Vital Signs Vital Signs - 24 hr 10/10/23 09:14 10/10/23 09:17 10/10/23 09:34 Temperature 36.4 C L Temperature Source Oral Pulse Rate 52 L 55 L Pulse Rate [Apical] 52 L Respiratory Rate 18 18 Respiratory Effort / Characteristics Non-Labored Non-Labored Respiratory Depth Normal Normal Respiratory Pattern Regular Regular Blood Pressure 111/58 L Blood Pressure [Right Arm] 111/58 L Blood Pressure Mean 75 Blood Pressure Mean [Right Arm] 75 Pulse Oximetry 98 96 Oxygen Delivery Method Room Air Room Air Sepsis Recent Fever Within 48 Hours No Sepsis New/Unexplained Change in Mental Status Yes Sepsis Action Taken by Nursing No Action Required 10/10/23 10:58 10/10/23 10:58 10/10/23 10:59 Temperature Temperature Source Pulse Rate Pulse Rate [Apical] 60 Respiratory Rate 13 Respiratory Effort / Characteristics Respiratory Depth Respiratory Pattern Blood Pressure Blood Pressure [Right Arm] Blood Pressure Mean Blood Pressure Mean [Right Arm] Pulse Oximetry 98 98 98 Oxygen Delivery Method Room Air Room Air Room Air Sepsis Recent Fever Within 48 Hours Sepsis New/Unexplained Change in Mental Status Sepsis Action Taken by Nursing 10/10/23 11:03 10/10/23 12:40 Temperature Temperature Source Pulse Rate Pulse Rate [Apical] 71 Respiratory Rate 15 Respiratory Effort / Characteristics Respiratory Depth Respiratory Pattern Blood Pressure Blood Pressure [Right Arm] 138/58 L 148/94 H Blood Pressure Mean Blood Pressure Mean [Right Arm] 84 112 Pulse Oximetry 96 Oxygen Delivery Method Room Air Sepsis Recent Fever Within 48 Hours Sepsis New/Unexplained Change in Mental Status Sepsis Action Taken by Half-Way Medications Current Medication List: was personally reviewed by me Laboratory Data Attestation: I reviewed the patient's lab results. 10/10/23 09:21 10/10/23 09:21 Lab Results 10/10/23 10/10/23 10/10/23 Range/Units 09:21 09:56 10:02 WBC 11.39 H (4.8-10.8) K/ul RBC 4.06 L (4.70-6.10) M/uL Hgb 12.6 L (14.0-18.0) g/dl Hct 38.0 L (42.0-52.0) % MCV 93.6 (80.0-100.0) fL MCH 31.0 (25.0-34.0) pg MCHC 33.2 (32.0-36.0) g/dL RDW Std Deviation 48.7 H (36.4-46.3) fL RDW Coeff of Cullen 14.2 (11.5-14.5) % Plt Count 199 (130-400) K/uL MPV 12.5 H (9.4-12.4) fL Immature Gran % (Auto) 0.8 % Neut % (Auto) 78.1 % Lymph % (Auto) 14.9 % [place] % (Auto) 5.5 % Eos % (Auto) 0.5 % Baso % (Auto) 0.2 % Neut # (Auto) 8.89 H (1.40-6.50) K/uL Lymph # (Auto) 1.70 (1.20-3.40) K/uL [place] # (Auto) 0.63 H (0.11-0.59) K/uL Eos # (Auto) 0.06 (0.00-0.50) K/uL Baso # (Auto) 0.02 (0.00-0.20) K/uL Immature Gran # (Auto) 0.09 (0.01-0.20) K/uL Sodium 138 (136-145) mmol/L Potassium 3.7 (3.5-5.1) mmol/L Chloride 107 (98-107) mmol/L Carbon Dioxide 24 (21-32) mmol/L Anion Gap 7 (3-11) BUN 23 (6-23) mg/dl Creatinine 1.01 (0.6-1.4) mg/dl Est Cr Clr Drug Dosing Not Reportable Est GFR ( Amer) 81.6 ml/min Est GFR (Non-Af Amer) 70.4 ml/min BUN/Creatinine Ratio 22.8 H (10-20) Glucose 100 H (70-99(Fasting)) mg/dl Lactate (0.4-2.0) mmol/L Calcium 9.7 (8.6-10.3) mg/dl Magnesium 2.1 (1.7-2.4) mg/dl Total Bilirubin 0.6 (0.2-1.0) mg/dl AST 27 (13-39) U/L ALT 18 (7-52) U/L Alkaline Phosphatase 37 (34-104) U/L Ammonia 36.0 (18-72) umol/L Troponin I High Sens 13.0 (0-20) pg/ml Total Protein 6.2 (6.0-8.3) gm/dl Albumin 3.8 (3.4-5.0) gm/dl Globulin 2.4 L (2.5-4.0) gm/dl Albumin/Globulin Ratio 1.6 (0.9-2) TSH 1.744 (0.300-4.500) uIu/ml Valproic Acid < 10 L (50-100) mcg/ml Ethyl Alcohol mg/dL < 10.0 (<10.0) mg/dl Adenovirus (PCR) Not Detected (NotDetected) B. pertussis DNA (PCR) Not Detected (NotDetected) B.parapertussis DNA PCR Not Detected (NotDetected) C. pneumoniae DNA (PCR) Not Detected (NotDetected) Coronavirus OC43 (PCR) Not Detected (NotDetected) Coronavirus HKU1 (PCR) Not Detected (NotDetected) Coronavirus 229E (PCR) Not Detected (NotDetected) SARS-CoV-2 (PCR) Not Detected (NotDetected) Coronavirus NL63 (PCR) Not Detected (NotDetected) Human Metapneumovir PCR Not Detected (NotDetected) Influenza Type A (PCR) Not Detected (NotDetected) Influenza Type B (PCR) Not Detected (NotDetected) M. pneumoniae (PCR) Not Detected (NotDetected) Parainfluenza 1 (PCR) Not Detected (NotDetected) Parainfluenza 2 (PCR) Not Detected (NotDetected) Parainfluenza 3 (PCR) Not Detected (NotDetected) Parainfluenza 4 (PCR) Not Detected (NotDetected) RSV (PCR) Not Detected (NotDetected) Entero/Rhino (PCR) Not Detected (NotDetected) 10/10/23 Range/Units 10:06 WBC (4.8-10.8) K/ul RBC (4.70-6.10) M/uL Hgb (14.0-18.0) g/dl Hct (42.0-52.0) % MCV (80.0-100.0) fL MCH (25.0-34.0) pg MCHC (32.0-36.0) g/dL RDW Std Deviation (36.4-46.3) fL RDW Coeff of Cullen (11.5-14.5) % Plt Count (130-400) K/uL MPV (9.4-12.4) fL Immature Gran % (Auto) % Neut % (Auto) % Lymph % (Auto) % [place] % (Auto) % Eos % (Auto) % Baso % (Auto) % Neut # (Auto) (1.40-6.50) K/uL Lymph # (Auto) (1.20-3.40) K/uL [place] # (Auto) (0.11-0.59) K/uL Eos # (Auto) (0.00-0.50) K/uL Baso # (Auto) (0.00-0.20) K/uL Immature Gran # (Auto) (0.01-0.20) K/uL Sodium (136-145) mmol/L Potassium (3.5-5.1) mmol/L Chloride (98-107) mmol/L Carbon Dioxide (21-32) mmol/L Anion Gap (3-11) BUN (6-23) mg/dl Creatinine (0.6-1.4) mg/dl Est Cr Clr Drug Dosing Est GFR ( Amer) ml/min Est GFR (Non-Af Amer) ml/min BUN/Creatinine Ratio (10-20) Glucose (70-99(Fasting)) mg/dl Lactate 0.3 L (0.4-2.0) mmol/L Calcium (8.6-10.3) mg/dl Magnesium (1.7-2.4) mg/dl Total Bilirubin (0.2-1.0) mg/dl AST (13-39) U/L ALT (7-52) U/L Alkaline Phosphatase (34-104) U/L Ammonia (18-72) umol/L Troponin I High Sens (0-20) pg/ml Total Protein (6.0-8.3) gm/dl Albumin (3.4-5.0) gm/dl Globulin (2.5-4.0) gm/dl Albumin/Globulin Ratio (0.9-2) TSH (0.300-4.500) uIu/ml Valproic Acid (50-100) mcg/ml Ethyl Alcohol mg/dL (<10.0) mg/dl Adenovirus (PCR) (NotDetected) B. pertussis DNA (PCR) (NotDetected) B.parapertussis DNA PCR (NotDetected) C. pneumoniae DNA (PCR) (NotDetected) Coronavirus OC43 (PCR) (NotDetected) Coronavirus HKU1 (PCR) (NotDetected) Coronavirus 229E (PCR) (NotDetected) SARS-CoV-2 (PCR) (NotDetected) Coronavirus NL63 (PCR) (NotDetected) Human Metapneumovir PCR (NotDetected) Influenza Type A (PCR) (NotDetected) Influenza Type B (PCR) (NotDetected) M. pneumoniae (PCR) (NotDetected) Parainfluenza 1 (PCR) (NotDetected) Parainfluenza 2 (PCR) (NotDetected) Parainfluenza 3 (PCR) (NotDetected) Parainfluenza 4 (PCR) (NotDetected) RSV (PCR) (NotDetected) Entero/Rhino (PCR) (NotDetected) Administered Medications Lactated Ringer's (Lr) 1,000 mls @ 80 mls/hr IV .[id number] [facility] Stop: 10/11/23 14:14 Last Admin: 10/10/23 13:28 Dose: 80 mls/hr Documented By: ANCELMO Discontinued Medications Sodium Chloride (Nss) 500 mls @ 999 mls/hr IV .Q31M [facility] Stop: 10/10/23 10:15 Last Infusion: 10/10/23 11:00 Dose: Infused Documented By: Admin: 10/10/23 10:06 Dose: 999 mls/hr Documented By: ANCELMO Lidocaine HCl (Lidocaine 2% Jelly 5 Ml Tube) 5 ml EXT NOW ONE Stop: 10/10/23 11:56 Last Admin: 10/10/23 11:58 Dose: 5 ml Documented By: ANCELMO Naloxone HCl (Naloxone Hcl 0.4 Mg/1 Ml Vial/Carp) 0.4 mg IV NOW STA Stop: 10/10/23 10:54 Last Admin: 10/10/23 11:49 Dose: 0.4 mg Documented By: ANCELMO Imaging Data Radiologist's Impression: Chest X-Ray 10/10/23 09:35 XR chest 1V portable HISTORY: weakness COMPARISON: Chest 07/25/2023. FINDINGS: Slightly rotated study. No pneumothorax. The heart remains enlarged. There are low lung volumes. A few bibasilar linear densities favor subsegmental atelectasis. This is similar to the prior study. No new focal lung consolidations to suggest a pneumonia. No evidence for pulmonary edema. No pleural effusions. IMPRESSION: No significant change compared to the prior study. No acute process. ACT 112: Negative or not required by law. Electronically signed by: Louis Muniz M.D. 10/10/2023 10:[address] 10/10/23 09:[address] DOSE: 1328.26 mGy.cm HISTORY: delirium TECHNIQUE: Multiaxial CT images of the head were performed without the use of intravenous contrast. Automated exposure control was utilized for this study. A dose lowering technique was utilized adhering to the principles of ALARA. Comparison: Head CT 07/25/2023. Findings: The paranasal sinuses and mastoid air cells are clear. The calvarium and skull base are intact. There is no mass, hematoma, midline shift, acute infarct. White matter hypodensity is nonspecific but suggestive of microvascular ischemic change. The ventricles and sulci demonstrate mild age-related involutional changes. Motion artifact. 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 Stable calcification within the right thalamus. Impression: No significant change compared to the prior study. No acute intracranial abnormality. ACT 112: Negative or not required by law. Electronically signed by: Louis Muniz M.D. 10/10/2023 11:32 AM Discharge Plan Visit Data Chief Complaint: Lethargic Stated Complaint: LETHARGIC ED Provider: Ronny Stearns Discharge Problem: Altered mental status, Somnolence, Leukocytosis, Anemia Patient Disposition: Admitted As Inpatient Condition: Fair Discharge Instructions Interventions: ED Discharge Assessment Last Done: 10/10/23 15:21 Discharge Problem: Altered mental status Qualifiers: Altered mental status type: somnolence Qualified Code(s): R40.0 - Somnolence Leukocytosis Qualifiers: Leukocytosis type: unspecified Qualified Code(s): D72.829 - Elevated white blood cell count, unspecified Anemia Qualifiers: Anemia type: unspecified type Qualified Code(s): D64.9 - Anemia, unspecified
[2023-10-10 10:09] LABS: Thyroid Stimulating Hormone 1.744 uIu/ml (0.300-4.500)
--- NOTE | 2023-10-10 10:17 | XRay Report ---
XR chest 1V portable HISTORY: weakness COMPARISON: Chest 07/25/2023. FINDINGS: Slightly rotated study. No pneumothorax. The heart remains enlarged. There are low lung vol umes. A few bibasilar linear densities favor subsegmental atelectasis. This is similar to the prior s tudy. No new focal lung consolidations to suggest a pneumonia. No evidence for pulmonary edema. No pl eural effusions. IMPRESSION: No significant change compared to the prior study. No acute process. ACT 112: Negative or not required by law. Electronically signed by: Louis Muniz M.D. 10/10/2023 10:16 AM
[2023-10-10] MEDS ORDERED: NALOXONE HCL 0.4 MG/1 ML VIAL/CARP IV STA (10:53)
[2023-10-10 11:01] LABS: Adenovirus PCR Not Detected (NotDetected); Bordetella parapertussis PCR Not Detected (NotDetected); Bordetella pertussis PCR Not Detected (NotDetected); Chlamydia pneumoniae PCR Not Detected (NotDetected); Coronavirus 229E PCR Not Detected (NotDetected); Coronavirus CoV-2 (COVID19)PCR Not Detected (NotDetected); Coronavirus HKU1 PCR Not Detected (NotDetected); Coronavirus NL63 PCR Not Detected (NotDetected); Coronavirus OC43PCR Not Detected (NotDetected); Human Metapneumovirus PCR Not Detected (NotDetected); Influenza A PCR Not Detected (NotDetected); Influenza B PCR Not Detected (NotDetected); Mycoplasma pneumoniae PCR Not Detected (NotDetected); Parainfluenza Virus 1 PCR Not Detected (NotDetected); Parainfluenza Virus 2 PCR Not Detected (NotDetected); Parainfluenza Virus 3 PCR Not Detected (NotDetected); Parainfluenza Virus 4 PCR Not Detected (NotDetected); Respiratory Syncytial VirusPCR Not Detected (NotDetected); Rhinovirus/Enterovirus PCR Not Detected (NotDetected)
--- NOTE | 2023-10-10 11:34 | CT Scan Report ---
HEAD CT NONCONTRAST CT DOSE: 1328.26 mGy.cm HISTORY: delirium TECHNIQUE: Multiaxial CT images of the head were performed without the use of intravenous contrast. A utomated exposure control was utilized for this study. A dose lowering technique was utilized adheri ng to the principles of ALARA. Comparison: Head CT 07/25/2023. Findings: The paranasal sinuses and mastoid air cells are clear. The calvarium and skull base are int act. There is no mass, hematoma, midline shift, acute infarct. White matter hypodensity is nonspecifi c but suggestive of microvascular ischemic change. The ventricles and sulci demonstrate mild age-rela jodi involutional changes. Motion artifact. 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 Stable calcification within the right thalamus. Impression: No significant change compared to the prior study. No acute intracranial abnormality. ACT 112: Negative or not required by law. Electronically signed by: Louis Muniz M.D. 10/10/2023 11:32 AM
[2023-10-10] MEDS ORDERED: LIDOCAINE 2% JELLY 5 ML TUBE EXT ONE (11:55)
[2023-10-10 12:23] LABS: Appearance Urine Clear (Clear); Bacteria Urine Automated Negative (Negative); Bilirubin Urine Negative (Negative); Blood Urine 3+ (Negative); Color Urine Yellow; Glucose Urine UA Negative (Negative); Ketones Urine Negative (Negative); Leukocyte Esterase Urine Negative (Negative); Nitrite Urine Negative (Negative); Protein Urine Negative (Negative); RBC Urine Automated >30 /hpf (0-4); Specific Gravity Urine 1.019 (1.000-1.030); Urobilinogen Urine Negative (Negative); pH Urine 6.5 (4.5-7.5)
--- NOTE | 2023-10-10 12:23 | History & Physical Report ---
Date of Service October 10, 2023 Assessment & Plan (1) AMS (altered mental status): Plan: Acute on chronic mental status alteration With a baseline of Alzheimer's dementia, but with acutely diminished cognitive status and who was much more sedate than normal at residential CThead: No acute finding Per nursing the meds his ROOMMATE got were incorrect so it is possible he and his roommates switched meds but this not known for sure. Roommate is on lorazepam 1mg and oxycodone. Due to the situation they have reached out in our lab to fax the complete med list for Mr. Fonseca's roommate which is pending -Patient initially with pinpoint nonreactive pupils in ER consistent with narcosis, he is slightly improved following 1 dose of Narcan and on hospitalist evaluation pupils are contracted but reactive to light. UDS is negative. Will monitor in PCU for observation, pending unknown ingestion washout No signs of infectious source causing metabolic encephalopathy, trend fever curve. BioFire negative, UA uninfected appearing although with blood following traumatic Sanz placement, high sensor troponin is negative, ammonia is normal, lactate is not elevated. Slightly volume contracted but without JESSICA, trace leukocytosis suspect demargination. Afebrile. Hold all sedating medications on admission including trazodone. If not improving --> MRI for stroke r/o. RF include HTN, aflutter not on anticoagulation. Phone call x2 made and voicemail left on patient's daughter's phone for call back. (2) Alzheimer's dementia: Plan: At baseline is oriented to name and sometimes place only, maxim Sheehan is not oriented to year and has moderate to severe dementia. Collateral from family pending, daughter has not been able to be reached either by hospitalist provider or when with staff. Maxim Sheehan [phone] number is correct contact for his daughter (3) CAD (coronary artery disease): Plan: Continue home medications including dual antiplatelet therapy, isosorbide Patient is in a flutter which she has reportedly had before but is not anticoagulated due to fall risk. Metoprolol was held for bradycardia (4) GERD (gastroesophageal reflux disease): Plan: PPI (5) BPH (benign prostatic hyperplasia): Plan: Continue Flomax (6) Renal artery stenosis: Plan: Noted (7) Hypothyroidism: Plan: Synthroid (8) Carotid stenosis, right: Plan: DAPT continued (9) Atrial flutter: Plan: On metoprolol succinate 12.5 mg p.o. twice daily. Remain with medication except takes metoprolol succinate 25 mg in the morning, but not at time of medication except. Unclear if patient received additional dose of this Is with A-fib with bradycardic response ranging 40s70s while in ER. Hold metoprolol We will admit to medical telemetry. He is currently normotensive. Discussed with cardiology, as patient is sedated and may have a slower resting rate as long as he is hemodynamically stable reasonable to observe. If he has symptomatic bradycardia becomes hypotensive can trial a dose of atropine. If recurrent doses are needed then could progress to either isoproterenol versus dopamine at that time; this is not currently required and we will observe on PCU at this time. Patient is not anticoagulated due to risk of bleeding and falls History of Present Illness Primary Care Provider: Isamar Rodriguez MD Jonh is a 77-year-old male with past medical history of GERD, CAD s/p CABG x3, a flutter, hypertension, hypothyroidism, PCI with coronary stents who is a [place] [facility] resident who presented with lethargy after multiple medications were confused between residence at [place] the prior evening. Did discuss this directly with [facility] staff per the report: During second shift last night pt had an 'accident' where he fell and was extremely confused and incontinent of stool. Was very weak. - Was placed in recliner chair. - Normal cognitive baseline is normally very confused with moderate dementia not normally oriented to year, month but is intermittently oriented to place. His biggest change in status with his energy, is normally active and is not lethargic or sedate at baseline - Per nursing the meds his ROOMMATE got were incorrect so it is possible he and his roommates switched meds but this not known for sure. Roommate is on lorazepam 1mg and oxycodone. Due to the situation they have reached out in our lab to fax the complete med list for Mr. Fonseca's roommate which is pending - Confirm DNR/DNI. Attempting to contact daughter by same # we have and no callback as of yet. At time of hospitalist evaluation Jonh is improved from initial ER exam. Post Narcan his pupils are slightly contracted, but reactive to light rise by report were previously pinpoint and unreactive. He awakens to voice and is able to give his name and that he is in "a [place] hospital ". Delineator strength is intact bilaterally. Does withdraw to soft touch in the hands and feet bilaterally. Has had a Sanz placed but unfortunately this was with difficult placement and has sanguinous output. Pending bladder scan and irrigation at time of bedside visit. Limited history due to sedation and cognitive status. He reports he is not sure why he is in the hospital or what happened, and does not remember events preceding his arrival to the hospital. He reports he does have a history of heart stents and is on heart medicine but is not able to verbalize what this is. He does not know if he is on a blood thinner History limited by cognitive status, pending reconciliation fax from for; to (do). He has a signed DNR/DNI on file which is confirmed by their facility over the phone. Update: Med list obtained of patient's roommate. Name redacted for privacy. Atorvastatin Carbidopalevodopa 78828 Finasteride Lasix 40 Vitamin D Metoprolol 25 mg hs succinate Protonix 40 mg Flomax 0.4 mg Tylenol 325 mg Glycopyrrolate as needed for secretions Promethazine Ativan 1 mg as needed Oxycodone 5 mg as needed Allergies Allergy/AdvReac Type Severity Reaction Status Date / Time niacin Allergy Mild RASH Verified 08/26/23 09:45 Iodinated Contrast Media Allergy Unknown UNKNOWN Verified 08/26/23 09:45 atorvastatin [From Lipitor] AdvReac Unknown INTOLERANT Verified 08/26/23 09:45 Home Medications Medication Instructions Recorded Confirmed Type acetaminophen 500 mg tablet 500 mg PO Q4H PRN fever or pain 01/28/22 10/10/23 History aspirin 81 mg tablet,delayed 81 mg PO DAILY 01/28/22 10/10/23 History release (Adult Low Dose Aspirin) clopidogrel 75 mg tablet 75 mg PO DAILY 01/28/22 10/10/23 History ezetimibe 10 mg tablet 10 mg PO DAILY cholesterol 01/28/22 10/10/23 History nitroglycerin 0.4 mg sublingual 0.4 mg sublingual .COMPLEX PRN 01/28/22 10/10/23 History tablet chest pain omega 9-bgl-ctg-fish oil 1,000 mg 3 cap PO DAILY 01/28/22 10/10/23 History (120 mg-180 mg) capsule (Fish Oil) cholecalciferol (vitamin D3) 25 25 mcg PO DAILY #90 caps 01/13/23 10/10/23 Rx mcg (1,000 unit) capsule metoprolol succinate 25 mg 12.5 mg (1/2 x 25 mg) PO BID #90 06/03/23 10/10/23 Rx tablet,extended release 24 hr tabs escitalopram oxalate 5 mg tablet 5 mg PO DAILY #90 tabs 06/25/23 10/10/23 Rx (Lexapro) isosorbide mononitrate 60 mg 60 mg PO DAILY #28 tabs 06/25/23 10/10/23 Rx tablet,extended release 24 hr mirabegron 50 mg tablet,extended 50 mg PO DAILY #30 tabs 06/28/23 10/10/23 Rx release 24 hr (Myrbetriq) multivitamin with folic acid 400 1 tab PO DAILY 07/25/23 10/10/23 History mcg tablet (Daily-Sathya (with folic acid)) memantine 10 mg tablet See Rx Instructions .Route 07/27/23 10/10/23 Rx .COMPLEX #56 tabs divalproex 125 mg tablet,delayed 125 mg PO BID 08/17/23 10/10/23 History release levothyroxine 75 mcg tablet 75 mcg PO DAILY #90 tabs 08/24/23 10/10/23 Rx fenofibrate micronized 200 mg 200 mg PO DAILY HTN #90 caps 09/24/23 10/10/23 Rx capsule finasteride 5 mg tablet 5 mg PO DAILY #90 tabs 09/24/23 10/10/23 Rx omeprazole 20 mg capsule,delayed 20 mg PO DAILY GERD #90 caps 09/24/23 10/10/23 Rx release tamsulosin 0.4 mg capsule 0.4 mg PO HS #90 caps 09/24/23 10/10/23 Rx trazodone 150 mg tablet 150 mg PO HS #90 tabs 09/24/23 10/10/23 Rx alirocumab 75 mg/mL subcutaneous 75 mg subcut .[id number] 10/10/23 10/10/23 History pen injector (Praluent Pen) Past Med/Surg History Medical History Vitamin D deficiency Vitamin B12 deficiency Dementia DDD (degenerative disc disease) Carotid stenosis, right "s/p R carotid stent placement" Hypothyroidism HTN (hypertension) Surgical History H/O colonoscopy History of heart surgery History of removal of cyst (03/17/22) Skin, back of neck cyst, excision: Dr. Lomas - Seborrheic keratosis - Ruptured epidermoid cyst History of wisdom tooth extraction Stented coronary artery Family History Mother Dementia Grandmother (Maternal) Psychiatric hospitalization Denies family history of Ovarian cancer Osteoporosis Myocardial infarction Breast cancer Colorectal cancer Social History Smoking Status: Never smoker Second Hand Exposure: No; Do You Dip or Chew Tobacco: No; Hx Alcohol Use: No Hx Substance Use: No Preferred Language: Macedonian Communication Ability: Impaired Parcel Post Officer Required: No Beliefs That Will Affect Care: None marital status: / Current Living Situation: Personal Care Facility Current Living Situation Comment: [facility] current occupational status: retired How many Children do You have: 4 Other Information That Helps Us Care for You: No Feels Safe at Home: Yes Safety Concerns: Feels Safe At This Time Childhood Exposure to Second-Hand Smoke: No Diet: regular caffeine: Yes Dental Care, Regularly: No Physical Activity Frequency: Daily Seatbelt Use: always Sunscreen Use: Yes (sometimes) Assistive Devices: Denture - Upper and Denture - Lower Physical Exam Physical Exam: General: Somnolent, arouses to voice. Oriented to name and hospital only. HEENT: Atraumatic, normocephalic. Pupils contracted but reactive to light Pulm: CTAB A&P. -wheezes, -rales, -rhonchi. Symmetrical chest rise. No increased work of breathing. No respiratory distress. Cardiac: Slightly bradycardic, regular. Soft systolic murmur well-healed midline sternal incision, old. Radial pulses intact and symmetrical. Abdominal: Nontender, nondistended, soft. BS present. : Sanz in place draining sanguinous material. Pending irrigation and bladder scan. Extremities: Warm, dry. Withdraws upper and lower extremities bilaterally to noxious stimuli; strength and sensation limited by sedation and cognitive status, dividing machine operator strength is intact and symmetrical bilaterally. Results & Data Results & Data Vital Signs (Past 12 Hours) Vital Signs Temp Pulse Pulse Resp BP BP Pulse Ox 10/10/23 11:03 138/58 L 10/10/23 10:59 60 13 98 10/10/23 10:58 98 10/10/23 10:58 98 10/10/23 09:34 52 L 18 111/58 L 96 10/10/23 09:17 55 L 10/10/23 09:14 36.4 C L 52 L 18 111/58 L 98 O2 Del Method 10/10/23 11:03 10/10/23 10:59 Room Air 10/10/23 10:58 Room Air 10/10/23 10:58 Room Air 10/10/23 09:34 Room Air 10/10/23 09:17 10/10/23 09:14 Room Air PG Care Time/CCT Total # of Minutes Spent Total Time Spent with Patient: Total time spent is greater than 50% in coordination of care (as documented) at patient's floor/unit and/or counseling patient: Coding Level of Care Code 83149 INT INP/OBS CARE 3/75MIN Diagnoses AMS (altered mental status) R41.82 Alzheimer's dementia G30.9; F02.80 CAD (coronary artery disease) I25.10 GERD (gastroesophageal reflux disease) K21.9 BPH (benign prostatic hyperplasia) N40.0 Renal artery stenosis I70.1 Hypothyroidism E03.9 Carotid stenosis, right I65.21 Atrial flutter I48.4 Atrial flutter type: atypical (9) Atrial flutter Atrial flutter type: atypical Qualified Code(s): I48.4 - Atypical atrial flutter
[2023-10-10 12:39] LABS: Mucus Urine Present (None Prsent)
[2023-10-10 12:42] LABS: Amphetamines+Metham, Urine Neg (Neg); Barbiturates, Urine Neg (Neg); Benzodiazepine, Urine Neg (Neg); Cocaine, Urine Neg (Neg); MDMA (Ecstacy), Urine Neg (Neg); Marijuana, Urine Neg (Neg); Methadone, Urine Neg (Neg); Opiate, Urine Neg (Neg); Phencyclidine, Urine Neg (Neg)
[2023-10-10] MEDS: LACTATED RINGER'S 1,000 ML IV SCH (13:28)
[2023-10-10] MEDS ORDERED: ATROPINE SULFATE 0.1 MG/ML 5ML SYR IV PRN (16:13)
[2023-10-10] MEDS: MEMANTINE HCL 10 MG TAB PO SCH (20:00)
[2023-10-11] MEDS: LACTATED RINGER'S 1,000 ML IV SCH ×2 (00:42→20:36)
[2023-10-11] MEDS: LEVOTHYROXINE SODIUM 75 MCG TABLET PO SCH (05:46)
--- NOTE | 2023-10-11 06:16 | Electrocardiogram Report ---
Test Reason : Blood Pressure : / mmHG Vent. Rate : 049 BPM Atrial Rate : 249 BPM P-R Int : 000 ms QRS Dur : 124 ms QT Int : 464 ms P-R-T Axes : 211 015 141 degrees QTc Int : 419 ms Atrial flutter with variable A-V block with premature ventricular or aberrantly conducted complexes Septal infarct (cited on or before 05-AUG-2016) Abnormal ECG When compared with ECG of 25-JUL-2023 19:21, Vent. rate has decreased BY 37 BPM Questionable change in initial forces of Anterior leads Non-specific change in ST segment in Anterior leads Confirmed by Vasyl Pedro ([id number]) on 10/11/2023 6:15:31 AM Referred By: Confirmed By:Vasyl Pedro
[2023-10-11] MEDS: MEMANTINE HCL 10 MG TAB PO SCH (08:23)
[2023-10-11] MEDS: ASPIRIN 81 MG ECTAB PO SCH (08:23)
[2023-10-11] MEDS: ISOSORBIDE MONO EXTENDED REL 60 MG TABCR PO SCH (08:23)
[2023-10-11] MEDS: CLOPIDOGREL BISULFATE 75 MG TAB PO SCH (08:23)
[2023-10-11 08:46] LABS: Basophils # (auto) 0.02 K/uL (0.00-0.20); Basophils % (auto) 0.2 %; Eosinophils # (auto) 0.03 K/uL (0.00-0.50); Eosinophils % (auto) 0.3 %; Hemoglobin 14.2 g/dl (14.0-18.0); Immature Granulocytes # (auto) 0.08 K/uL (0.01-0.20); Immature Granulocytes % (auto) 0.7 %; Lymphocytes # (auto) 1.73 K/uL (1.20-3.40); Lymphocytes % (auto) 14.4 %; Mean Corpuscular Hemoglobin 30.8 pg (25.0-34.0); Mean Corpuscular Volume 93.3 fL (80.0-100.0); Mean Platelet Volume 12.4 fL (9.4-12.4); Monocytes # (auto) 0.69 K/uL (0.11-0.59); Monocytes % (auto) 5.8 %; Neutrophils # (auto) 9.45 K/uL (1.40-6.50); Neutrophils % (auto) 78.6 %; Platelet Count 225 K/uL (130-400); RDW Coefficient of Variation 13.7 % (11.5-14.5); RDW Standard Deviation 46.6 fL (36.4-46.3); Red Blood Count 4.61 M/uL (4.70-6.10)
[2023-10-11 08:48] LABS: Anion Gap 9 (3-11); BUN Creatinine Ratio 17.1 (10-20); Blood Urea Nitrogen 13 mg/dl (6-23); Calcium 9.4 mg/dl (8.6-10.3); Carbon Dioxide 24 mmol/L (21-32); Chloride 108 mmol/L (98-107); Est GFR (African American) 100.6 ml/min; Est GFR (Non-African American) 86.8 ml/min; Glucose 108 mg/dl (70-99(Fasting)); Potassium 3.6 mmol/L (3.5-5.1); Sodium 141 mmol/L (136-145)
--- NOTE | 2023-10-11 16:03 | Hospitalist Progress Note ---
Date of Service October 11, 2023 Assessment & Plan (1) AMS (altered mental status): Plan: Suspected acute toxic encephalopathy possibly from inadvertent administration of his roommates medications while at [facility]. Supportive care. IV fluids. Avoid all ASSISTANT ACCOUNT MANAGER depressants. No evidence of occult infection (2) Alzheimer's dementia: Plan: Supportive care. All ASSISTANT ACCOUNT MANAGER medications have been discontinued. (3) CAD (coronary artery disease): Plan: Stable. Continue current medical management (4) GERD (gastroesophageal reflux disease): Plan: Stable. Continue PPI (5) BPH (benign prostatic hyperplasia): Plan: Stable. Continue Flomax (6) Hypothyroidism: Plan: Stable. Continue Synthroid (7) Atrial flutter: Plan: Chronic. Rate controlled with metoprolol. Currently on hold due to bradycardia. He is not on systemic anticoagulation due to frequent falls. Telemetry Plan To be determined Admission and Anticipated Discharge Date Admission Date: October 10, 2023 Subjective Awake but lethargic. He is oriented to name and place. He remains n.p.o. however until mentation improves. IV fluids uptitrated. No evidence of acute CVA and brain MRI scan is likely to be low yield and has been canceled. Speech therapy consultation requested. All ASSISTANT ACCOUNT MANAGER medications have been discontinued including Namenda. Review of Systems 2 Review of Systems: The patient is unable to answer any questions regarding review of systems at this time Physical Exam 2 Physical Exam: General-lethargic. Oriented to name and place. No fever HEENT-head atraumatic and normocephalic, pupils equal and reactive to light, extraocular muscles intact Neck-no lymphadenopathy or thyromegaly, trachea midline Chest-clear to auscultation percussion. No rales, wheezing or rhonchi Cardiac-regular rate and rhythm, normal S1 and S2 Abdomen-normal bowel sounds, nontender, no hepatosplenomegaly Extremities-no cyanosis, clubbing, or edema Neuro-lethargic. No apparent focal motor deficits. Oriented to name and place. Generalized weakness Psych-cannot assess Results & Data Results & Data Vital Signs (Past 12 Hours) Vital Signs Temp Pulse Pulse Resp BP Pulse Ox O2 Del Method 10/11/23 15:36 36.5 C 68 18 101/62 96 Room Air 10/11/23 08:45 Room Air 10/11/23 07:44 36.4 C L 50 L 18 162/81 H 97 Room Air 10/11/23 07:25 51 L Laboratory Results 10/11/23 07:30 10/11/23 07:30 PG Care Time/CCT Total # of Minutes Spent Total Time Spent with Patient: Total time spent is greater than 50% in coordination of care (as documented) at patient's floor/unit and/or counseling patient: Coding Level of Care Code 39381 SUB INP/OBS CARE 3/50MIN Diagnoses AMS (altered mental status) R41.82 Alzheimer's dementia G30.9; F02.80 CAD (coronary artery disease) I25.10 GERD (gastroesophageal reflux disease) K21.9 BPH (benign prostatic hyperplasia) N40.0 Hypothyroidism E03.9 Atrial flutter I48.4 Atrial flutter type: atypical (7) Atrial flutter Atrial flutter type: atypical Qualified Code(s): I48.4 - Atypical atrial flutter
[2023-10-11] MEDS: ENOXAPARIN INJ 40 MG/0.4 ML SYR SQ SCH (16:26)
[2023-10-12] MEDS: LEVOTHYROXINE SODIUM 75 MCG TABLET PO SCH (05:22)
[2023-10-12 07:38] LABS: Basophils # (auto) 0.04 K/uL (0.00-0.20); Basophils % (auto) 0.4 %; Eosinophils # (auto) 0.09 K/uL (0.00-0.50); Eosinophils % (auto) 0.8 %; Hemoglobin 12.8 g/dl (14.0-18.0); Immature Granulocytes # (auto) 0.06 K/uL (0.01-0.20); Immature Granulocytes % (auto) 0.5 %; Lymphocytes # (auto) 2.59 K/uL (1.20-3.40); Mean Corpuscular Hemoglobin 30.8 pg (25.0-34.0); Mean Corpuscular Hgb Conc 33.7 g/dL (32.0-36.0); Mean Corpuscular Volume 91.6 fL (80.0-100.0); Mean Platelet Volume 11.7 fL (9.4-12.4); Monocytes # (auto) 1.01 K/uL (0.11-0.59); Neutrophils # (auto) 7.45 K/uL (1.40-6.50); Neutrophils % (auto) 66.3 %; Platelet Count 215 K/uL (130-400); RDW Coefficient of Variation 13.8 % (11.5-14.5); RDW Standard Deviation 46.6 fL (36.4-46.3); Red Blood Count 4.15 M/uL (4.70-6.10); White Blood Count 11.24 K/ul (4.8-10.8)
[2023-10-12 07:56] LABS: Anion Gap 8 (3-11); BUN Creatinine Ratio 19.1 (10-20); Blood Urea Nitrogen 17 mg/dl (6-23); Calcium 9.3 mg/dl (8.6-10.3); Carbon Dioxide 24 mmol/L (21-32); Chloride 108 mmol/L (98-107); Est GFR (African American) 94.3 ml/min; Est GFR (Non-African American) 81.3 ml/min; Glucose 77 mg/dl (70-99(Fasting)); Potassium 3.4 mmol/L (3.5-5.1); Sodium 140 mmol/L (136-145)
[2023-10-12] MEDS: ISOSORBIDE MONO EXTENDED REL 60 MG TABCR PO SCH (08:38)
[2023-10-12] MEDS: CLOPIDOGREL BISULFATE 75 MG TAB PO SCH (08:38)
[2023-10-12] MEDS: ASPIRIN 81 MG ECTAB PO SCH (08:38)
[2023-10-12] MEDS: ENOXAPARIN INJ 40 MG/0.4 ML SYR SQ SCH (08:39)
[2023-10-12] MEDS: LACTATED RINGER'S 1,000 ML IV SCH (08:39)
[2023-10-12] MEDS ORDERED: METOPROLOL TARTRATE 50 MG TAB PO ONE (15:39)
[2023-10-12] MEDS ORDERED: METOPROLOL TARTRATE 25 MG TAB PO ONE (15:45)
--- NOTE | 2023-10-12 15:46 | Hospitalist Progress Note ---
Date of Service October 12, 2023 Assessment & Plan (1) AMS (altered mental status): Plan: Suspected acute toxic encephalopathy possibly from inadvertent administration of his roommates medications while at [facility]. Now resolved. Continue supportive care. IV fluids have been discontinued. Diet has been started by speech therapy. Avoid all NIGHT NURSE depressants. No evidence of occult infection (2) Alzheimer's dementia: Plan: Supportive care. All NIGHT NURSE medications have been discontinued. (3) CAD (coronary artery disease): Plan: Stable. Continue current medical management (4) GERD (gastroesophageal reflux disease): Plan: Stable. Continue PPI (5) BPH (benign prostatic hyperplasia): Plan: Stable. Continue Flomax (6) Hypothyroidism: Plan: Stable. Continue Synthroid (7) Atrial flutter: Plan: Chronic. Rate controlled with metoprolol. Held initially this hospitalization but restarted today, October 12. He is not on systemic anticoagulation due to frequent falls. Telemetry Plan OT and PT assessments have been requested. He may be a candidate for [place] at discharge Admission and Anticipated Discharge Date Admission Date: October 10, 2023 Subjective Alert and sitting up in a chair and eating this morning. Marked improvement. I spoke to his daughter by phone. Metoprolol has been restarted. OT and PT assessments ordered. IV fluids discontinued. He may be a candidate for [place]. Review of Systems 2 Review of Systems: Constitutional-no fever or chills ENT-no blurred vision, no double vision, no epistaxis, no sore throat Respiratory-no cough, no wheezing, no shortness of breath Cardiac-no palpitations, no chest pain, no syncope GI-no nausea, vomiting, diarrhea, melena, hematochezia -no urinary retention, no urinary incontinence, no dysuria, no hematuria Musculoskeletal-no joint pain, no muscle tenderness Skin-no bruising, no rashes, no pruritus Neuro-no isolated weakness, no paresthesia, no weakness Psych-no depression, no anxiety Physical Exam 2 Physical Exam: General-alert and oriented to name and place. No fever HEENT-head atraumatic and normocephalic, pupils equal and reactive to light, extraocular muscles intact Neck-no lymphadenopathy or thyromegaly, trachea midline Chest-clear to auscultation percussion. No rales, wheezing or rhonchi Cardiac-regular rate and rhythm, normal S1 and S2 Abdomen-normal bowel sounds, nontender, no hepatosplenomegaly Extremities-no cyanosis, clubbing, or edema Neuro-cranial nerves II through XII intact. No apparent focal motor deficits. Oriented to name and place. Normal strength. Psych-normal affect Results & Data Results & Data Vital Signs (Past 12 Hours) Vital Signs Temp Pulse Resp BP Pulse Ox O2 Del Method 10/12/23 11:58 36.2 C L 89 18 94/59 L 96 Room Air 10/12/23 07:48 36.7 C 56 L 18 123/65 98 Room Air Laboratory Results 10/12/23 06:56 10/12/23 06:56 PG Care Time/CCT Total # of Minutes Spent Total Time Spent with Patient: Total time spent is greater than 50% in coordination of care (as documented) at patient's floor/unit and/or counseling patient: Coding Level of Care Code 21253 SUB INP/OBS CARE 3/50MIN Diagnoses AMS (altered mental status) R41.82 Alzheimer's dementia G30.9; F02.80 CAD (coronary artery disease) I25.10 GERD (gastroesophageal reflux disease) K21.9 BPH (benign prostatic hyperplasia) N40.0 Hypothyroidism E03.9 Atrial flutter I48.4 Atrial flutter type: atypical (7) Atrial flutter Atrial flutter type: atypical Qualified Code(s): I48.4 - Atypical atrial flutter
[2023-10-12] MEDS: METOPROLOL TARTRATE 25 MG TAB PO SCH (20:45)
--- OUTSIDE RECORDS SUMMARY | 2023-10-12 22:25 | External Medical Summary | Summary of Care ---
Author Name Unknown Organization [facility] Address [address] [place] [address] Phone [phone] Care Team Providers Care Passenger Car Conductor Name Role Phone Stanford Hansen MD Primary Care Provider [phone] Reason for Visit * Reason Onset Date Comments Precert In Process 08/27/2023 29 [place] GHP PRA LUENT Encounter Details Date Type Department Care Team Description 08/27/2023 Telephone Cardiology, [facility] [address] [place] [phone] Jeane Prescott PA-C [address] [place] [id number] Precert In Process (29 [place] GHP PRALUENT ) Allergies Active Allergy Reactions Severity Noted Date Comments Iodinated Contrast Media Chills/rigors 09/23/20 10 Niacin Er 07/21/2012 Rash Statins 05/27/2007 MYALGIAS documented as of this encounter (statuses as of 08/31/2023) Medications Medication Sig Dispensed Refills Start Date End Date Status ACETAMINOPHEN 500 MG PO TABS 1 TABLET EVERY 4 HOURS NEEDED 100 0 02/20/2008 Active MULTIVITAMINS PO TABS 1 tablet daily 0 Active OMEGA 3 1000 MG PO CAPS 3 CAPSULES DAILY WITH A MEAL 90 Cap 11 07/29/2012 Active Finasteride 5 MG Oral Tablet (Proscar)Indication s:Urinary frequency,BPH with obstruction/lower urinary tract symptoms TAKE ONE TABLET BY MOUTH EVERY DAY 90 Tab 0 04/14/2021 Active Fenofibrate Micronized 200 MG Oral CapsuleIndications: Dyslipidemia, goal LDL below 100 TAKE ONE CAPSULE BY MOUTH EVERY DAY BEFORE BREAKFAST 90 Cap 0 04/14/2021 Active Isosorbide Mononitrate ER 60 MG Oral Tablet Extended Release 24 Hour (Imdur)Indications: Stable angina,Old [place] (myocardial infarction) Take 1 Tab by mouth daily. 90 Tab 3 06/24/2021 Active Levothyroxine Sodium 75 MCG Oral Tablet (Levoxyl) TAKE 1 TABLET BY MOUTH DAILY AT LEAST 30 MINUTES PRIOR TO FIRST MEAL OF THE DAY OR OTHER MEDICATIONS 90 Tab 3 06/24/2021 Active Nitroglycerin 0.4 MG Sublingual Tablet Sublingual (Nitrostat) Place 1 Tab under the tongue as needed for Pain, Chest. 25 Tab 11 06/24/2021 Active Tamsulosin HCl 0.4 MG Oral Capsule (Flomax) Take 1 Capsule by mouth at bedtime. 0 01/16/2022 Active Omeprazole 20 MG Oral Capsule Delayed Release (PriLOSEC) Take 1 Capsule by mouth in the morning. 0 01/16/2022 Active D3-1000 25 MCG (1000 UT) Oral Capsule (Cholecalciferol) Take 1 Capsule by mouth in the morning. 0 Active Memantine HCl 5 MG Oral Tablet (Namenda) Take 1 Tablet by mouth in the morning and 1 Tablet before bedtime. 0 07/24/2022 Active Aspirin Low Dose 81 MG Oral Tablet Delayed Release Take 1 Tablet by mouth in the morning. 0 07/23/2022 Active Myrbetriq 50 MG Oral Tablet Extended Release 24 Hour Take 1 Tablet by mouth in the morning. 0 07/24/2022 Active Metoprolol Succinate ER 25 MG Oral Tablet Extended Release 24 Hour (toPROL XL)Indications:Stab le angina,Atherosclero sis of [place] coronary artery of [place] heart without angina pectoris,Hx of CABG,Essential hypertension with goal blood pressure less than 140/90 Take 0.5 Tablets by mouth in the morning. 0 07/28/2022 Active Alirocumab 75 MG/ML Subcutaneous Solution Auto-injectorIndica tions:Dyslipidemia, goal LDL below 100,Statin intolerance INJECT 75 MG (1 PEN) UNDER THE SKIN EVERY 14 DAYS 2 mL 5 11/25/2022 11/25/2023 Active Additional Information Patient not taking.Reported on 02/01/2023 Escitalopram Oxalate 5 MG Oral Tablet (Lexapro) Take 1 Tablet by mouth in the morning. 0 Active Ezetimibe 10 MG Oral Tablet (Zetia)Indications: Dyslipidemia, goal LDL below 100 TAKE ONE TABLET BY MOUTH EVERY DAY 90 Tablet 3 11/26/2022 11/26/2023 Active Clopidogrel Bisulfate 75 MG Oral Tablet (pLAVix)Indications :Atrial flutter (HCC) TAKE ONE TABLET BY MOUTH EVERY DAY 100 Tablet 3 06/11/2023 Active documented as of this encounter (statuses as of 08/31/2023) Active Problems Problem Noted Date Atrial flutter 01/26/2022 Ischemic cardiomyopathy 01/26/2022 Dyslipidemia, goal LDL below 70 01/26/20 22 Stable angina 03/20/2020 Hypertensive kidney disease with chronic kidney disease stage III 03/19/2020 Overview: HTN + CKD III - conditions have assumed relationship per current coding guidelines Carotid stenosis, non-symptomatic, bilat eral 10/11/2018 Old [place] (myocardial infarction) 6 HTN, goal below 130/80 04/16/2016 S/P CABG x 3 05/14/2014 Hereditary and idiopathic peripheral ovidio ropathy 03/08/2014 Acquired hypothyroidism 08/24/2013 Dyslipidemia 11/14/2009 Overview: Per Lipid Taxonomy. BPH with obstruction/lower urinary tract symptoms Overview: s/p TURP 2/05 documented as of this encounter (statuses as of 08/31/2023) Resolved Problems Problem Noted Date Resolved Date Polyneuropathy in other diseases classified else where 03/20/2020 02/23/2021 Atherosclerotic heart diseas e of [place] coronary artery with other forms of angina pectoris 03/20/2020 02/23/2021 Kidney disease, chronic, stage III (GFR 30-59 ml /min) 05/08/2019 04/11/2020 Overview: Per CKD protocol Stable angina 05/01/2019 05/01/2019 Lyme disease 10/18/2016 11/05/2017 CAD (coronary artery disease) 09/19/2016 Atherosclerosis of [place] co ronary artery without angina pectoris 10/17/2015 04/15/2020 Overview: More specific code in use. Stable angina 08/06/2015 11/05/2017 Statin intolerance 04/26/2014 04/05/2021 SBE (subacute bacterial endocarditis) prophylaxi s candidate 03/23/2013 11/05/2017 Asymptomatic carotid artery stenosis 12/14/2011 10/11/2018 Carotid stenosis, non-symptomatic 12/11/2011 02/29/2012 Overview: Carotid Stenting For High Surgical-Risk Patients. PI: Mario Encinas ext: [phone] pager [phone] CRC: Iris Deetz ext. [phone] pager [phone] Blancas's esophagus 02/28/2010 05/12/2021 HYPOTHYROIDISM NOS 05/21/2008 04/22/2017 Gastroesophageal reflux disease without esophagi tis 02/01/2008 02/23/2021 EXAMINATION OF PARTICIPANT IN CLINICAL TRIAL - G ENOMICS 08/02/2007 03/14/2010 Overview: Renamed Per Clinical Trials Billing Project. Study Title: Genomic Markers for Patients with Cardiovascular Disease Project #: [id number] PI: Kaity Liu MD [phone] GENOMICS CARDIO RESEARCH OTHER*[id number] 200601/05/2017 Overview: Renamed Per Clinical Trials Billing Project. Study Title: Genomic Markers for Patients with Cardiovascular Disease Project #: [id number] PI: Kaity Liu MD [phone] Examination of participant in clinical trial 08/04/2008 Overview: [facility] [place] registry #[id number] PI: Ta SC: Anita Manzo This study is being done to examine ways in which physicians use the latest PCI treatments, including coronary angioplasty and different types of coronary stents. This is a registry, used only for data collection. There are no investigational drugs or devices. ABN LIVER FUNCTION STUDY 06/30/2004 017 DIARRHEA 08/27/2003 11/05/2017 REPLACE 2 #[id number] Ta 11/18/2001 1 01/06/2017 S/P ANGIOPLASTY WITH STENT RCA 11/18/2001 0 02/23/2021 Overview: 03/03: The patient has undergone elective percutaneous coronary intervention on a distal right coronary lesion felt to be responsible at least in part for progression of symptoms. Mixed dyslipidemia 02/24/2001 11/14/2009 Overview: Per Lipid Taxonomy. HYPERLIPIDEMIA NEC-NOS Overview: Per Lipid Taxonomy RENAL ARTERY STENOSIS 05/01/2019 Overview: s/p renal angioplasty 10/29 CORONARY ATHEROSCLEROSIS VESSEL NOS 10/17/2015 Overview: S/P CABG x 3 in 1996 - SHELLEY to LAD, SVG to OM, SVG to ramus (occluded by cath in 1999) documented as of this encounter (statuses as of 08/31/2023) Immunizations Name Administration Dates Next Due COVID-19 mRNA, LNP-s, No Pre serve, 2-Dose Series ([email or web address]) 03/13/2021,02/20/2021 Pneumococcal Conjugate Vacc, 13 Valent (Prevnar) 04/16/2016 Pneumococcal Polysaccharide PPV23 (Pneumovax) 04/22/2017,05/22/2008 05/22/2009 SEASONAL INFLUENZA, PF, 6 M & Above, IM , (FLULAVAL or FLUZONE) 10/11/2018,11/05/2017 Seasonal Influenza, Quadriva lent, No Preserve, IM 07/29/2016,10/10/2015 Seasonal Influenza, Split, I IV3, With Preserve, Inj 08/23/2014,08/24/2013,08/19/2012 Seasonal Influenza, Trivalen t, Adjuvanted, 65+ yrs 09/19/2019 TDAP (age 10 and older)(Boostrix) 11/21/2012 Varicella Zoster Vaccine (Adult) 01/27/2013 Zoster Vaccine Recombinant (Shingrix) 02/12/2021 ,06/14/2020 documented as of this encounter Social History Tobacco Use Types Packs/Day Years Used Date Smoking Tobacco: Never Smokeless Tobacco: Never Alcohol Use Standard Drinks/Week Comments Yes 0 (1 standard drink = 0.6 oz pur e alcohol) rare Sex Assigned at Date Recorded Not on file Job Start Date Occupation Industry Not on file Not on file Not on file documented as of this encounter Functional Status Functional Status Response Date of Assess ment Are you deaf or do you have serious difficulty h earing? No 09/19/2016 Are you blind or do you have serious difficulty seeing, even when wearing glasses? No 09/19/2016 Do you have serious difficul ty walking or climbing stairs? (5 years old or older) No 09/19/2016 Do you have difficulty dress ing or bathing? (5 years old or older) No 09/19/2016 Because of a physical, menta l, or emotional condition, do you have difficulty doing errands alone such as visiting a doctor s office or shopping? (15 years old or older) No 09/19/20 16 Cognitive Status Response Date of Assessm ent Because of a physical, menta l, or emotional condition, do you have serious difficulty concentrating, remembering, or making decisions? (5 years old or older No 09/19/2016 documented as of this encounter Miscellaneous Notes * Telephone Encounter - Lo Gomez RPh - 08/31/2023 2:03 PM EDT New or re-auth: Re-authorization Approved/Denied: Approved Drug Name and Formulation: PRALUENT 75 MG ML How Prescribed(directions/sig): INJECT EVERY 14 DAYS Day Supply: 2 PER Did you receive insurance information from outside the chart? No, received insurance information within the chart Valid auth start date: 08/09/2023 Valid auth end date: 08/28/2024 Rx Insurance Info: GHP GOLD Test claim $4.30 documented in this encounter Plan of Treatment Upcoming Encounters Date Type Specialty Care Team Description 03/06/2024 Office Visit Cardiology Gabi Mcmillan PA-C [address] [place] [address] Scheduled Procedures Name Priority Associated Diagnoses Date/Ti me COLONOSCOPY FLEXIBLE PROXIMAL DIAGNOSTIC Recall History of colon polyps ESOPHAGOGASTRODUODENOSCOPY ( EGD), FLEXIBLE, TRANSORAL, DIAGNOSTIC Recall Blancas's esophagus Health Maintenance Due Date Last Done Comments Albumin/Creatinine Ratio 1963 Hepatitis C Screening 1963 CKD HGB USE SMARTSET 57114 02/11/202102/11, 04/20/2019, 01/17/2019, Additional history exists CKD PHOS USE SMARTSET 38864 03/20/2021 03/20/2020 COVID-19 Vaccine (3 - Pfizer series) 05/08/2021 03/13/2021, 02/20/2021 Depression Screening 06/14/2021 06/14/2020 GFR 10/05/2021 04/04/2021, 05/29, 03/20/2020, Additional history exists TSH 04/04/2022 04/04/2021, 02/28, 01/17/2019, Additional history exists DTaP,Tdap,and Td Vaccines (2 - Td or Tdap) 11/21/2022 11/21/2012, 09/27/2000 COLONOSCOPY-EVERY 5 YRS AGES 18-100 12/27/2022 12/27/2017, 12/27/2017, 10/07/2012 Influenza Vaccine (FLU shot) (#1) 2023 09/19/2019, 09/19/2019, 10/11/2018, Additional history exists Pneumococcal Vaccine: 65+ Years Completed 04/22/2017, 04/16/2016, 05/22/2008, Additional history exists Zoster Vaccines Completed 02/12/2021, 05/29, 01/27/2013 GARDASIL-HPV IMMUNIZATION SERIES Aged Out No longer eligible based on patient's age to complete this topic Hepatitis B Aged Out No longer eligi ble based on patient's age to complete this topic MENINGOCOCCAL (MENACTRA/MENVEO) Aged Out No longer eligible based on patient's age to complete this topic documented as of this encounter Medical Devices Implanted Type Area Machine Plaster Mixer Device Identifier Shelf Expiration Date Model / Serial / Lot Stent Aclnk 7-17x30 [id number] - [id number] [place]planted:Q[place]: 1 [place] [facility] [place] Carotid GUIDANT 05/28/2013 [id number] / / [id number] documented as of this encounter Advance Directives Latest Code Status on File Code Status Date Activated Date Inactivated Comments Full Code 05/17/2020 10:04 AM 05/17/2020 2:50 PM This order reflects the patients wishes and were consensually agreed upon. Question Answer Comments Discussion of Advance Directives occurred with: Patient Does the patient have a Living Will? No Does the patient have Health Care Power of Analytics Architect? No Code Status History Code Status Date Activated Date Inactivated Comments Full Code 09/19/2016 10:30 AM 09/19/2016 6:27 PM Th is order reflects the patients wishes and were consensually agreed upon. Question Answer Comments Discussion of Advance Directives occurred with: Patient Does the patient have a Living Will? No Does the patient have Health Care Power of Analytics Architect? No Full Code 03/18/2012 9:39 AM 03/19/2012 3:39 PM This order reflects the patients wishes and were consensually agreed upon. Full Code 05/21/2008 9:16 PM 05/24/2008 6:59 PM Care Teams Passenger Car Conductor Relationship Specialty Start Date End Date Stanford Hansen MD [address] [place] [id number] PCP - General Family Medicine 02/23/21 documented as of this encounter
--- OUTSIDE RECORDS SUMMARY | 2023-10-12 22:25 | External Medical Summary | Summary of Care ---
Author Name Unknown Organization [facility] Address [address] [facility] [place] [address] Phone [phone] Care Team Providers Care Phys Ther Name Role Phone Stanford Hansen MD Primary Care Provider [phone] Reason for Visit * Reason Onset Date Comments Medication Pre-auth 08/08/2023 Precert In Process 08/08/2023 11 [place] GHP PRA LUENT Precert Denied 08/08/2023 PRALUENT Pre Cert/Prior Auth 08/08/2023 Please re-richards bmit now that lipid panel done Precert Approved 08/08/2023 PRALUENT Encounter Details Date Type Department Care Team Description 08/08/2023 Telephone Cardiology, [facility] [address] [place] [address] Jeane Prescott PA-C [address] [place] [address] Medication Pre-auth; Precert In Process (1... Allergies Active Allergy Reactions Severity Noted Date Comments Iodinated Contrast Media Chills/rigors 09/23/20 10 Niacin Er 07/21/2012 Rash Statins 05/27/2007 MYALGIAS documented as of this encounter (statuses as of 08/30/2023) Medications Medication Sig Dispensed Refills Start Date [...] Extended Release 24 Hour (Imdur)Indications: Stable angina,Old [place] (myocardial infarction) Take 1 Tab by mouth [...] Pain, Chest. 25 Tab 11 06/24/2021 Active Cholestyramine 4 GM/DOSE Oral Powder MIX 4G TWICE A DAY IN JUICE 378 g 5 01/09/2022 Active Additional Information Patient not taking.Reported on 03/17/2023 Tamsulosin HCl 0.4 MG Oral Capsule (Flomax) Take 1 Capsule by mouth at bedtime. 0 01/16/2022 Active Omeprazole 20 MG Oral Capsule Delayed Release (PriLOSEC) Take 1 Capsule by mouth in the morning. 0 01/16/2022 Active Cyanocobalamin 1000 MCG/ML Injection Solution (Cyanocobalamin) Inject 1,000 mcg into a large muscle every 30 days. 0 Active D3-1000 25 MCG (1000 UT) Oral [...] Hour (toPROL XL)Indications:Stab le angina,Atherosclero sis of [place] coronary artery of [place] heart without angina pectoris,Hx of CABG,Essential hypertension [...] as of this encounter (statuses as of 08/30/2023) Active Problems Problem Noted Date Atrial flutter 01/26/2022 Ischemic cardiomyopathy 01/26/2022 Dyslipidemia, goal LDL below 70 01/26/20 22 Stable angina 03/20/2020 Hypertensive kidney disease with chronic kidney disease stage III 03/19/2020 Overview: HTN + CKD III - conditions have assumed relationship per current coding guidelines Carotid stenosis, non-symptomatic, bilat eral 10/11/2018 Old [place] (myocardial infarction) 6 HTN, goal below 130/80 04/16/2016 S/P CABG x 3 05/14/2014 Hereditary and idiopathic peripheral ovidio ropathy 03/08/2014 Acquired hypothyroidism 08/24/2013 Dyslipidemia 11/14/2009 Overview: Per Lipid Taxonomy. BPH with obstruction/lower urinary tract symptoms Overview: s/p TURP 2/05 documented as of this encounter (statuses as of 08/30/2023) Resolved Problems Problem Noted Date Resolved Date Polyneuropathy in other diseases classified else where 03/20/2020 02/23/2021 Atherosclerotic heart diseas e of [place] coronary artery with other forms of angina pectoris 03/20/2020 02/23/2021 Kidney disease, chronic, stage III (GFR 30-59 ml /min) 05/08/2019 04/11/2020 Overview: Per CKD protocol Stable angina 05/01/2019 05/01/2019 Lyme disease 10/18/2016 11/05/2017 CAD (coronary artery disease) 09/19/2016 Atherosclerosis of [place] co ronary artery without angina pectoris 10/17/2015 04/15/2020 Overview: More specific code in use. Stable angina 08/06/2015 11/05/2017 Statin intolerance 04/26/2014 04/05/2021 SBE (subacute bacterial endocarditis) prophylaxi s candidate 03/23/2013 11/05/2017 Asymptomatic carotid artery stenosis 12/14/2011 10/11/2018 Carotid stenosis, non-symptomatic 12/11/2011 02/29/2012 Overview: Carotid Stenting For High Surgical-Risk Patients. PI: Mario Encinas ext: [phone] pager [phone] CRC: Iris Frost ext. [phone] pager [phone] Blancas's esophagus 02/28/2010 05/12/2021 HYPOTHYROIDISM NOS 05/21/2008 04/22/2017 Gastroesophageal reflux disease without esophagi tis 02/01/2008 02/23/2021 EXAMINATION OF PARTICIPANT IN CLINICAL TRIAL - G ENOMICS 08/02/2007 03/14/2010 Overview: Renamed Per Clinical Trials Billing Project. Study Title: Genomic Markers for Patients with Cardiovascular Disease Project #: [id number] PI: Kaity Liu MD [phone] GENOMICS CARDIO RESEARCH OTHER*[id number] 200601/05/2017 Overview: Renamed Per Clinical Trials Billing Project. Study Title: Genomic Markers for Patients with Cardiovascular Disease Project #: [id number] PI: Kaity Liu MD [phone] Examination of participant in clinical trial 08/04/2008 Overview: [facility] [place] registry #[id number] PI: Ta SC: Anita Manzo This study is being done to examine ways in which physicians use the latest PCI treatments, including coronary angioplasty and different types of coronary stents. This is a registry, used only for data collection. There are no investigational drugs or devices. ABN LIVER FUNCTION STUDY 06/30/2004 017 DIARRHEA 08/27/2003 11/05/2017 REPLACE 2 #[id number] [place] 11/18/2001 1 01/06/2017 S/P ANGIOPLASTY WITH STENT [...] as of this encounter (statuses as of 08/30/2023) Immunizations Name Administration Dates Next Due COVID-19 mRNA, LNP-s, No Pre serve, 2-Dose Series ([employer]) 03/13/2021,02/20/2021 Pneumococcal Conjugate Vacc, 13 Valent (Prevnar) 04/16/2016 Pneumococcal Polysaccharide PPV23 (Pneumovax) 04/22/2017,05/22/2008,12/05/2002 05/22/2009 SEASONAL INFLUENZA, PF, 6 M & Above, IM , (FLULAVAL or FLUZONE) 10/11/2018,11/05/2017 Seasonal Influenza, Quadriva lent, No Preserve, IM 07/29/2016,10/10/2015 Seasonal Influenza, Split, I IV3, With Preserve, Inj 08/23/2014,08/24/2013,08/19/2012 Seasonal Influenza, Trivalen t, Adjuvanted, 65+ yrs 09/19/2019 TD - Tetanus/Diptheria (ADULT) 09/27/2000 TDAP (age 10 and older)(Boostrix) 11/21/2012 Varicella [...] Notes * Telephone Encounter - Lo Gomez [facility] - 08/25/2023 10:54 AM EDT Lipid panel back. LDL increased. Called detention, they state patient has been out of medication for 1-2 months due to issues with insurance/prior auth needed. This is likely why LDL increased as pt not taking medication. Patient needs to go back on Praluent. Please re-resubmit piror authorization renewal for Praluent 75 mg every 2 weeks. Please include lipid panel from 08/17/23. Please include a note that patient was not on Praluent injection when this lipid panel was completed. LDL target <70 Diagnosis: Hyperlipidemia; ASCVD (CAD) Lo Vanessa Clinical Pharmacist Cardiology 08/25/2023,10:54 AM * Telephone Encounter - Lo Gomez RPh - 08/13/2023 2:56 PM EDT Physician may complete a peer to peer within 24 hours by calling [phone]. NO UPDATED LDL New or re-auth: Re-authorization Approved/Denied: Denied Drug Name and Formulation: PRALUENT 75 MG ML How Prescribed(directions/sig): INJECT EVERY 14 DAYS Day Supply: 2 PER Did you receive insurance information from outside the chart? No, received insurance information within the chart Valid auth start date: N/A Valid auth end date: N/A Rx Insurance Info: [employer] Benefits Verified through/on date: [facility] 07/2023 Referral (TE) received from: [facility] Patient needs updated lipid panel. Last was 04/2022 Patient currently at [facility]. Spoke with nurse Simon. Will fax over lipid panel order. [phone] Once results received, will resubmit [place] Clinical Pharmacist Cardiology 08/13/2023,2:57 PM * Telephone Encounter - Emi Lawrence CPhT - 08/08/2023 9:53 AM EDT New or re-auth: re-auth Patient Jonh Fonseca needs a prior authorization for their Praluent through their [employer] insurance. ID: [id number] [id number] PCN:[id number] Target ship date is 08/12. Thank you very much, Emi Lawrence [facility] [facility] 08/08/2023,9:54 AM documented in this encounter Plan of Treatment Upcoming Encounters Date Type Specialty Care Team Description 08/30/2023 Office Visit Cardiology Gabi Mcmillan PA-C [address] [place] [id number] Scheduled Orders Name Type Priority Associated Diagnoses Orde r Schedule LIPID PANEL WITH DIRECT LDL IF TG IS HIGH Lab Routine Dyslipidemia, goal LDL below 70 Expected: 08/13/2023, Expires: 08/13/2024 Scheduled Procedures Name Priority Associated Diagnoses Date/Ti me COLONOSCOPY FLEXIBLE PROXIMAL DIAGNOSTIC Recall History of colon polyps ESOPHAGOGASTRODUODENOSCOPY ( EGD), FLEXIBLE, TRANSORAL, DIAGNOSTIC Recall Blancas's esophagus Health Maintenance Due Date Last Done Comments Albumin/Creatinine Ratio 1963 Hepatitis C Screening 1963 CKD HGB USE SMARTSET 38130 02/11/202102/11, 04/20/2019, 01/17/2019, Additional history exists CKD PHOS USE SMARTSET 84556 03/20/2021 03/20/2020 COVID-19 Vaccine (3 - Pfizer [...] this encounter Medical Devices Implanted Type Area Youth Corrections Officer Device Identifier Shelf Expiration Date Model / Serial / Lot Stent Aclnk 7-17x30 [id number] - [id number] [place]planted:[place]ty[place] 1 on 03[place]18/2012 [place] [facility] [place] Carotid GUIDANT 05/28/2013 [id number] / / [id number] documented as of this encounter Visit Diagnoses Diagnosis Dyslipidemia, goal LDL below 70- Primary Other and unspecified hyperlipidemia Coronary artery disease involving [place] coronary artery of [place] heart without angina pectoris- Primary Hx of CABG Postsurgical aortocoronary bypass status Stable angina Other and unspecified angina pectoris Essential hypertension with goal blood pressure less than 140/90 Dyslipidemia, goal LDL below 70 Other and unspecified hyperlipidemia Atrial flutter, unspecified type (HCC) documented in this encounter Advance Directives Latest Code Status on File Code Status Date Activated Date Inactivated Comments Full Code 05/17/2020 10:04 AM 05/17/2020 2:50 PM This order reflects the patients wishes and were consensually agreed upon. Question Answer Comments Discussion of Advance Directives occurred with: Patient Does the patient have a Living Will? No Does the patient have Health Care Power of Shift Foreman? No Code Status History Code Status Date Activated Date Inactivated Comments Full Code 09/19/2016 10:30 AM 09/19/2016 6:27 PM Th is order reflects the patients wishes and were consensually agreed upon. Question Answer Comments Discussion of Advance Directives occurred with: Patient Does the patient have a Living Will? No Does the patient have Health Care Power of Shift Foreman? No Full Code 03/18/2012 9:39 AM 03/19/2012 3:39 PM This order reflects the patients wishes and were consensually agreed upon. Full Code 05/21/2008 9:16 PM 05/24/2008 6:59 PM Care Teams Phys Ther Relationship Specialty Start Date End Date Stanford Hansen MD [address] [place] [phone] PCP - General Family Medicine 02/23/21 documented as of this encounter
--- OUTSIDE RECORDS SUMMARY | 2023-10-12 22:25 | External Medical Summary | Summary of Care ---
Author Name Unknown Organization [facility] Address [address] [facility] [place] [address] Phone [phone] Care Team Providers Care Non Profit Director Name Role Phone Stanford Hansen MD Primary Care Provider [phone] Reason for Visit * Reason Onset Date Comments Medication Pre-auth 08/08/2023 Precert In Process 08/08/2023 11 [place] GHP PRA LUENT Precert Denied 08/08/2023 PRALUENT Pre Cert/Prior Auth 08/08/2023 Please re-richards bmit now that lipid panel done Precert Approved 08/08/2023 PRALUENT Encounter Details Date Type Department Care Team Description 08/08/2023 Telephone Cardiology, [facility] [address] [place] [address] Jeane Prescott PA-C [address] [place] [address] Medication Pre-auth; Precert In Process (1... Allergies [...] 07/29/2012 Active Finasteride 5 MG Oral Tablet (Proscar)Indicati ons:Urinary frequency,BPH with obstruction/lower urinary tract symptoms TAKE ONE TABLET BY MOUTH EVERY DAY 90 Tab 0 04/14/2021 Active Fenofibrate Micronized 200 MG Oral CapsuleIndication s:Dyslipidemia, goal LDL below 100 TAKE ONE CAPSULE BY MOUTH EVERY DAY BEFORE BREAKFAST 90 Cap 0 04/14/2021 Active Isosorbide Mononitrate ER 60 MG Oral Tablet Extended Release 24 Hour (Imdur)Indication s:Stable angina,Old [place] (myocardial infarction) Take 1 Tab by mouth [...] Oral Tablet Extended Release 24 Hour (toPROL XL)Indications:St able angina,Atheroscle rosis of [place] coronary artery of [place] heart without angina pectoris,Hx of CABG,Essential hypertension with goal blood pressure less than 140/90 Take 0.5 Tablets by mouth in the morning. 0 07/28/2022 Active Alirocumab 75 MG/ML Subcutaneous Solution Auto-injectorIndi cations:Dyslipide allyssa, goal LDL below 100,Statin intolerance INJECT 75 MG (1 PEN) UNDER THE SKIN EVERY 14 DAYS 2 mL 5 11/25/2022 12/28/20 23 Active Additional Information Patient not taking.Reported on 02/01/2023 Escitalopram Oxalate 5 MG Oral Tablet (Lexapro) Take 1 Tablet by mouth in the morning. 0 Active Ezetimibe 10 MG Oral Tablet (Zetia)Indication s:Dyslipidemia, goal LDL below 100 TAKE ONE TABLET BY MOUTH EVERY DAY 90 Tablet 3 11/26/2022 11/26/20 23 Active Clopidogrel Bisulfate 75 MG Oral Tablet (pLAVix)Indicatio ns:Atrial flutter (HCC) TAKE ONE TABLET BY MOUTH EVERY DAY 100 Tablet 3 06/11/2023 Active Cholestyramine 4 GM/DOSE Oral Powder MIX 4G TWICE A DAY IN JUICE 378 g 5 01/09/2022 08/30/20 23 Discontinued Cyanocobalamin 1000 MCG/ML Injection Solution (Cyanocobalamin) Inject 1,000 mcg into a large muscle every 30 days. 0 08/30/20 23 Discontinued documented as of this encounter (statuses as of 08/31/2023) Active Problems Problem Noted Date Atrial flutter 01/26/2022 Ischemic cardiomyopathy 01/26/2022 Dyslipidemia, goal LDL below 70 01/26/20 22 Stable angina 03/20/2020 Hypertensive kidney disease with chronic kidney disease stage III 03/19/2020 Overview: HTN + CKD III - conditions have assumed relationship per current coding guidelines Carotid stenosis, non-symptomatic, bilat eral 10/11/2018 Old [place] (myocardial infarction) 6 HTN, goal below 130/80 04/16/2016 S/P CABG x 3 05/14/2014 Hereditary and idiopathic peripheral ovidio ropathy 03/08/2014 Acquired hypothyroidism 08/24/2013 Dyslipidemia 11/14/2009 Overview: Per Lipid Taxonomy. BPH with obstruction/lower urinary tract symptoms Overview: s/p TURP 01/03 documented as of this encounter (statuses as of 08/31/2023) Resolved Problems Problem Noted Date Resolved Date Polyneuropathy in other diseases classified else where 03/20/2020 02/23/2021 Atherosclerotic heart diseas e of eagle coronary artery with other forms of angina pectoris 03/20/2020 02/23/2021 Kidney disease, chronic, stage III (GFR 30-59 ml /min) 05/08/2019 04/11/2020 Overview: Per CKD protocol Stable angina 05/01/2019 05/01/2019 Lyme disease 10/18/2016 11/05/2017 CAD (coronary artery disease) 09/19/2016 Atherosclerosis of eagle co ronary artery without angina pectoris 10/17/2015 04/15/2020 Overview: More specific code in use. Stable angina 08/06/2015 11/05/2017 Statin intolerance 04/26/2014 04/05/2021 SBE (subacute bacterial endocarditis) prophylaxi s candidate 03/23/2013 11/05/2017 Asymptomatic carotid artery stenosis 12/14/2011 10/11/2018 Carotid stenosis, non-symptomatic 12/11/2011 02/29/2012 Overview: Carotid Stenting For High Surgical-Risk Patients. PI: Mario Encinas ext: [phone] pager [phone] CRC: Iris Frost ext. [phone] pager [phone] Blancas's esophagus 02/28/2010 05/12/2021 HYPOTHYROIDISM NOS 05/21/2008 04/22/2017 Gastroesophageal reflux disease without esophagi tis 02/01/2008 02/23/2021 EXAMINATION OF PARTICIPANT IN CLINICAL TRIAL - G ENOMICS 08/02/2007 03/14/2010 Overview: Renamed Per Clinical Trials Billing Project. Study Title: Genomic Markers for Patients with Cardiovascular Disease Project #: [id number] PI: Kaity Liu MD [phone] GENOMICS CARDIO RESEARCH OTHER*[id number] 200601/05/2017 Overview: Renamed Per Clinical Trials Billing Project. Study Title: Genomic Markers for Patients with Cardiovascular Disease Project #: [id number] PI: Kaity Liu MD [phone] Examination of participant in clinical trial 08/04/2008 Overview: [facility] registry #[id number] PI: Ta SC: Anita Manzo This study [...] 11/14/2009 Overview: Per Lipid Taxonomy. HYPERLIPIDEMIA NEC-NOS 9 Overview: Per Lipid Taxonomy RENAL ARTERY STENOSIS 05/01/2019 Overview: s/p renal angioplasty 10/29 CORONARY ATHEROSCLEROSIS VESSEL NOS 10/17/2015 Overview: S/P CABG x 3 in 1996 - SHELLEY to LAD, SVG to OM, SVG to ramus (occluded by cath in 1999) documented as of this encounter (statuses as of 08/31/2023) Immunizations Name Administration Dates Next Due COVID-19 mRNA, LNP-s, No Pre serve, 2-Dose Series (Pfizer) 03/13/2021,02/20/2021 Pneumococcal Conjugate Vacc, 13 Valent (Prevnar) [...] as of this encounter Miscellaneous Notes * Addendum Note - Lo Gomez RPh - 08/31/2023 2:23 PM EDTAddended by: LO GOMEZ on: 08/31/2023 02:23 PM Modules accepted: Orders * Telephone Encounter - Lo Gomez RPh - 08/31/2023 2:21 PM EDT Please turn off auto-routing for this patients Praluent In care home, will need to send to alternative pharmacy * Telephone Encounter - Lo Gomez RPh - 08/31/2023 2:05 PM EDT New or re-auth: Re-authorization Approved/Denied: Approved Drug Name and Formulation: PRALUENT 75 MG ML How Prescribed(directions/sig): INJECT EVERY 14 DAYS Day Supply: 2 PER Did you receive insurance information from outside the chart? No, received insurance information within the chart Valid auth start date: 08/09/2023 Valid auth end date: 08/28/2024 Rx Insurance Info: P GOLD Test claim $4.30 * Telephone Encounter - Lo Gomez RPh - 08/25/2023 10:54 AM EDT Lipid panel back. LDL increased. Called care home, they state patient has been out of [...] target <70 Diagnosis: Hyperlipidemia; ASCVD (CAD) Lo Gomez Pharm D Clinical Pharmacist Cardiology 08/25/2023,10:54 AM * Telephone Encounter - Lo Gomez RPh - 08/13/2023 2:56 PM EDT Physician may complete a peer to peer within 24 hours by calling [phone]. NO UPDATED LDL New or re-auth: Re-authorization Approved/Denied: Denied Drug Name and Formulation: PRALUENT 75 MG ML How Prescribed(directions/sig): INJECT EVERY 14 DAYS Day Supply: 2 PER 28 Did you receive insurance information from outside the chart? No, received insurance information within the chart Valid auth start date: N/A Valid auth end date: N/A Rx Insurance Info: [employer] GOLD Rx Benefits Verified through/on date: [facility] 07/2023 Referral (TE) received from: [facility] Patient needs updated lipid panel. Last was 04/2022 Patient currently at [facility]. Spoke with nurse Aurora. Will fax over lipid panel order. [phone] Once results received, will resubmit [place] Pharm D Clinical Pharmacist Cardiology 08/13/2023,2:57 PM * Telephone Encounter - Emi Lawrence CPhT - 08/08/2023 9:53 AM EDT New or re-auth: re-auth Patient Jonh Fonseca needs a prior authorization for their Praluent through their [employer] Gold insurance. ID: [id number] [id number] PCN:[id number] Target ship date is 08/12. Thank you very much, Emi Lawrence Quality Management Nurse [facility]acy Techn[facility] 08/08/2023,9:54 AM documented in this encounter Plan of Treatment Upcoming Encounters Date Type Specialty Care Team Description 03/06/2024 Office Visit Cardiology Gabi Mcmillan PA-C [address] [place] [address] [place] [address] Scheduled Orders Name Type Priority Associated Diagnoses [...] C Screening 1963 CKD HGB USE SMARTSET 85978 02/11/202102/11, 04/20/2019, 01/17/2019, Additional history exists CKD PHOS USE SMARTSET 80543 03/20/2021 03/20/2020 COVID-19 Vaccine (3 - Pfizer [...] this encounter Medical Devices Implanted Type Area Bird Raiser Device Identifier Shelf Expiration Date Model / Serial / Lot Stent Aclnk 7-17x30 [id number] - [id number] Implanted:Qty: 1 on 03/18/2012 at OR [facility] Right: Carotid GUIDANT 05/28/2013 [id number] / / [id number] documented as of this encounter Visit Diagnoses Diagnosis Dyslipidemia, goal LDL below 70- Primary Other and unspecified hyperlipidemia Dyslipidemia, goal LDL below 100 Other and unspecified hyperlipidemia Statin intolerance Other drug allergy documented in this encounter Advance Directives Latest Code Status on File Code Status Date Activated Date Inactivated Comments Full Code 05/17/2020 10:04 AM 05/17/2020 2:50 PM This order reflects the patients wishes and were consensually agreed upon. Question Answer Comments Discussion of Advance Directives occurred with: Patient Does the patient have a Living Will? No Does the patient have Health Care Power of Summer Camp Counselor? No Code Status History Code Status Date Activated Date Inactivated Comments Full Code 09/19/2016 10:30 AM 09/19/2016 6:27 PM Th is order reflects the patients wishes and were consensually agreed upon. Question Answer Comments Discussion of Advance Directives occurred with: Patient Does the patient have a Living Will? No Does the patient have Health Care Power of Summer Camp Counselor? No Full Code 03/18/2012 9:39 AM 03/19/2012 3:39 PM This order reflects the patients wishes and were consensually agreed upon. Full Code 05/21/2008 9:16 PM 05/24/2008 6:59 PM Care Teams Non Profit Director Relationship Specialty Start Date End Date Stanford Hansen MD [address] [place] [address] PCP - General Family Medicine 02/23/21 documented as of this encounter
--- OUTSIDE RECORDS SUMMARY | 2023-10-12 22:25 | External Medical Summary | Summary of Care ---
Author Name Unknown Organization [facility] Address [address] [facility] [place] [address] Phone [phone] Care Team Providers Care Housesmith Name Role Phone Stanford Hansen MD Primary Care Provider [phone] Reason for Visit * Reason Onset Date Comments Medication Pre-auth 08/08/2023 Precert In Process 08/08/2023 11 [place] GHP PRA LUENT Precert Denied 08/08/2023 PRALUENT Pre Cert/Prior Auth 08/08/2023 Please re-richards bmit now that lipid panel done Precert Approved 08/08/2023 PRALUENT Encounter Details Date Type Department Care Team Description 08/08/2023 Telephone Cardiology, [facility] [address] [place] [address] Jeane Prescott PA-C [address] [place] [address] Medication Pre-auth; Precert In Process (1... Allergies Active Allergy Reactions Severity Noted Date Comments Iodinated Contrast Media Chills/rigors 09/23/20 10 Niacin Er 07/21/2012 Rash Statins 05/27/2007 MYALGIAS documented as of this encounter (statuses as of 08/31/2023) Medications Medication Sig Dispensed Refills Start Date End Date Status ACETAMINOPHEN 500 MG PO TABS 1 TABLET EVERY 4 HOURS NEEDED 100 0 8 Active MULTIVITAMINS PO TABS 1 tablet daily 0 Active OMEGA 3 1000 MG PO CAPS 3 CAPSULES DAILY WITH A MEAL 90 Cap 11 2 Active Finasteride 5 MG Oral Tablet (Proscar)Indicat ions:Urinary frequency,BPH with obstruction/lowe r urinary tract symptoms TAKE ONE TABLET BY MOUTH EVERY DAY 90 Tab 0 1 Active Fenofibrate Micronized 200 MG Oral CapsuleIndicatio ns:Dyslipidemia, goal LDL below 100 TAKE ONE CAPSULE BY MOUTH EVERY DAY BEFORE BREAKFAST 90 Cap 0 1 Active Isosorbide Mononitrate ER 60 MG Oral Tablet Extended Release 24 Hour (Imdur)Indicatio ns:Stable angina,Old [place] (myocardial infarction) Take 1 Tab by mouth daily. 90 Tab 3 1 Active Levothyroxine Sodium 75 MCG Oral Tablet (Levoxyl) TAKE 1 TABLET BY MOUTH DAILY AT LEAST 30 MINUTES PRIOR TO FIRST MEAL OF THE DAY OR OTHER MEDICATIONS 90 Tab 3 1 Active Nitroglycerin 0.4 MG Sublingual Tablet Sublingual (Nitrostat) Place 1 Tab under the tongue as needed for Pain, Chest. 25 Tab 11 1 Active Tamsulosin HCl 0.4 MG Oral Capsule (Flomax) Take 1 Capsule by mouth at bedtime. 0 2 Active Omeprazole 20 MG Oral Capsule Delayed Release (PriLOSEC) Take 1 Capsule by mouth in the morning. 0 2 Active D3-1000 25 MCG (1000 UT) Oral Capsule (Cholecalciferol ) Take 1 Capsule by mouth in the morning. 0 Active Memantine HCl 5 MG Oral Tablet (Namenda) Take 1 Tablet by mouth in the morning and 1 Tablet before bedtime. 0 2 Active Aspirin Low Dose 81 MG Oral Tablet Delayed Release Take 1 Tablet by mouth in the morning. 0 2 Active Myrbetriq 50 MG Oral Tablet Extended Release 24 Hour Take 1 Tablet by mouth in the morning. 0 2 Active Metoprolol Succinate ER 25 MG Oral Tablet Extended Release 24 Hour (toPROL XL)Indications:S table angina,Atheroscl erosis of [place] coronary artery of [place] heart without angina pectoris,Hx of CABG,Essential hypertension with goal blood pressure less than 140/90 Take 0.5 Tablets by mouth in the morning. 0 2 Active Escitalopram Oxalate 5 MG Oral Tablet (Lexapro) Take 1 Tablet by mouth in the morning. 0 Active Ezetimibe 10 MG Oral Tablet (Zetia)Indicatio ns:Dyslipidemia, goal LDL below 100 TAKE ONE TABLET BY MOUTH EVERY DAY 90 Tablet 3 2 11/26/20 23 Active Clopidogrel Bisulfate 75 MG Oral Tablet (pLAVix)Indicati ons:Atrial flutter (HCC) TAKE ONE TABLET BY MOUTH EVERY DAY 100 Tablet 3 3 Active Alirocumab 75 MG/ML Subcutaneous Solution Auto-injectorInd ications:Dyslipi demia, goal LDL below 100,Statin intolerance Inject 75 mg under the skin every 14 days. 6 mL 3 3 Active Cholestyramine 4 GM/DOSE Oral Powder MIX 4G TWICE A DAY IN JUICE 378 g 5 2 08/30/20 23 Discontinued Cyanocobalamin 1000 MCG/ML Injection Solution (Cyanocobalamin) Inject 1,000 mcg into a large muscle every 30 days. 0 08/30/20 23 Discontinued Alirocumab 75 MG/ML Subcutaneous Solution Auto-injectorInd ications:Dyslipi demia, goal LDL below 100,Statin intolerance INJECT 75 MG (1 PEN) UNDER THE SKIN EVERY 14 DAYS 2 mL 5 2 08/31/20 23 Discontinued(Ref ill) documented as of this encounter (statuses as of 08/31/2023) Active Problems Problem Noted Date Atrial flutter 01/26/2022 Ischemic cardiomyopathy 01/26/2022 Dyslipidemia, goal LDL below 70 01/26/20 22 Stable angina 03/20/2020 Hypertensive kidney disease with chronic kidney disease stage III 03/19/2020 Overview: HTN + CKD III - conditions have assumed relationship per current coding guidelines Carotid stenosis, non-symptomatic, bilat eral 10/11/2018 Old [place] (myocardial infarction) 6 HTN, goal below 130/80 [...] 03/20/2020 02/23/2021 Atherosclerotic heart diseas e of [place] coronary artery with other forms of angina pectoris 03/20/2020 02/23/2021 Kidney disease, chronic, stage III (GFR 30-59 ml /min) 05/08/2019 04/11/2020 Overview: Per CKD protocol Stable angina 05/01/2019 05/01/2019 Lyme disease 10/18/2016 11/05/2017 CAD (coronary artery disease) 09/19/2016 Atherosclerosis of [place] co ronary artery without angina pectoris 10/17/2015 04/15/2020 Overview: More specific code in use. Stable angina 08/06/2015 11/05/2017 Statin intolerance 04/26/2014 04/05/2021 SBE (subacute bacterial endocarditis) prophylaxi s candidate 03/23/2013 11/05/2017 Asymptomatic carotid artery stenosis 12/14/2011 10/11/2018 Carotid stenosis, non-symptomatic 12/11/2011 02/29/2012 Overview: Carotid Stenting For High Surgical-Risk Patients. PI: Mario Encinas ext: [phone] pager [phone] CRC: Iris Frost ext. [phone] pager [phone] Blancas's esophagus 02/28/2010 05/12/2021 HYPOTHYROIDISM NOS 05/21/2008 04/22/2017 Gastroesophageal reflux disease without esophagi tis 02/01/2008 02/23/2021 EXAMINATION OF PARTICIPANT IN CLINICAL TRIAL - G ENOMICS 08/02/2007 03/14/2010 Overview: Renamed Per Clinical Trials Billing Project. Study Title: Genomic Markers for Patients with Cardiovascular Disease Project #: [id number] PI: Kaity Liu MD [phone] GENOMICS CARDIO RESEARCH OTHER*[id number] 200601/05/2017 Overview: Renamed Per Clinical Trials Billing Project. Study Title: Genomic Markers for Patients with Cardiovascular Disease Project #: [id number] PI: Kaity Liu MD [phone] Examination of participant in clinical trial 08/04/2008 Overview: [facility] registry #[id number] PI: Ta SC: Anita Manzo This study [...] Note - Lo Gomez RPh - 08/31/2023 2:34 PM EDTAddended by: LO GOMEZ on: 08/31/2023 02:34 PM Modules accepted: Orders * Telephone Encounter - Lo Gomez RP - 08/31/2023 2:34 PM EDT Rx for Praluent sent to [facility]. Spoke with nurse nash, told her to call me if they have any trouble obtaining the medication * Addendum Note - Lo Gomez RPh - 08/31/2023 2:23 PM EDTAddended by: LO GOMEZ on: 08/31/2023 02:23 PM Modules accepted: Orders * Telephone Encounter - Lo Gomez RPh - 08/31/2023 2:21 PM EDT Please turn off auto-routing for this patients Praluent In shelter, will need to send to alternative pharmacy [...] Insurance Info: GHP GOLD Test claim $4.30 * Telephone Encounter - Lo Gomez RPh - 08/25/2023 10:54 AM EDT Lipid panel back. LDL increased. Called shelter, they state patient has been out of [...] to peer within 24 hours by calling [phone]. NO UPDATED LDL New or re-auth: Re-authorization Approved/Denied: Denied Drug Name and Formulation: PRALUENT 75 MG ML How Prescribed(directions/sig): INJECT EVERY 14 DAYS Day Supply: 2 PER Did you receive insurance information from outside the chart? No, received insurance information within the chart Valid auth start date: N/A Valid auth end date: N/A Rx Insurance Info: [employer] Rx Benefits Verified through/on date: [facility] 07/2023 Referral (TE) received from: [facility] Patient needs updated lipid panel. Last was 04/[address] [facility]. Spoke with nurse Simon. Will fax over lipid panel order. [phone] Once results received, will resubmit [place] Clinical Pharmacist Cardiology 08/13/2023,2:57 PM * Telephone Encounter - Emi Lawrence CPhT - 08/08/2023 9:53 AM EDT New or re-auth: re-auth Patient Jonh Fonseca needs a prior authorization for their Praluent through their [employer] insurance. ID: [id number] BIN:[id number] PCN:[id number] Target ship date is 08/12. Thank you very much, Emi Lawrence [employer] 08/08/2023,9:54 AM documented in this encounter Plan of Treatment Upcoming Encounters Date Type Specialty Care Team Description 03/06/2024 Office Visit Cardiology Gabi Mcmillan PA-C [address] [place] [address] [place] [address] Scheduled Orders Name Type Priority Associated Diagnoses [...] C Screening 1963 CKD HGB USE SMARTSET 76602 02/11/202102/11, 04/20/2019, 01/17/2019, Additional history exists CKD PHOS USE SMARTSET 35501 03/20/2021 03/20/2020 Depression Screening 06/14/2021 06/14/2020 GFR 10/05/2021 04/04/2021, 05/29, 03/20/2020, Additional history exists TSH 04/04/2022 04/04/2021, 02/28, 01/17/2019, Additional history exists DTaP,Tdap,and Td Vaccines (2 - Td or Tdap) 11/21/2022 11/21/2012, 09/27/2000 COLONOSCOPY-EVERY 5 YRS AGES 18-100 12/27/2022 12/27/2017, 12/27/2017, 10/07/2012 COVID-19 Vaccine (3 - 2022- season) 2023 03/13/2021, 02/20/2021 Influenza Vaccine (FLU shot) (#1) 2023 09/19/2019, [...] this encounter Medical Devices Implanted Type Area Biofuels Product Manager Device Identifier Shelf Expiration Date Model / Serial / Lot Stent Aclnk 7-17x30 [id number] - [id number] Implanted:Qty: 1 on 03/18/2012 at OR [facility] [place] Right: Carotid GUIDANT 05/28/2013 [id number] / / [id number] documented as of this encounter Visit Diagnoses [...] the patient have Health Care Power of Box Toe Stitcher? No Code Status History Code Status Date Activated Date Inactivated Comments Full Code 09/19/2016 10:30 AM 09/19/2016 6:27 PM Th is order reflects the patients wishes and were consensually agreed upon. Question Answer Comments Discussion of Advance Directives occurred with: Patient Does the patient have a Living Will? No Does the patient have Health Care Power of Box Toe Stitcher? No Full Code 03/18/2012 9:39 AM 03/19/2012 3:39 PM This order reflects the patients wishes and were consensually agreed upon. Full Code 05/21/2008 9:16 PM 05/24/2008 6:59 PM Care Teams Housesmith Relationship Specialty Start Date End Date Stanford Hansen MD [address] [place] [address] PCP - General Family Medicine 02/23/21 documented as of this encounter
--- OUTSIDE RECORDS SUMMARY | 2023-10-12 22:25 | External Medical Summary | Summary of Care ---
Author Name Unknown Organization [facility] Address [address] [address] Phone [phone] Care Team Providers Care Internet Programmer Name Role Phone Stanford Hansen MD Primary Care Provider [phone] Reason for Visit * Reason Comments Follow Up Encounter Details Date Type Department Care Team Description 08/30/2023 Office Visit Cardiology, [facility] [address] [facility] [place] [address] Gabi Mcmillan PA-Radha [address] [facility] [address] Coronary artery disease involving tangirnaq coronary artery of tangirnaq heart without angina pectoris*; Hx of CABG; Stable angina; Essential hypertension with goal blood pressure less than 140/90; Dyslipidemia, goal LDL below 70; Atrial flutter, unspecified type (HCC) Allergies Active Allergy Reactions Severity Noted Date [...] Extended Release 24 Hour (Imdur)Indication s:Stable angina,Old IL (myocardial infarction) Take 1 Tab by mouth [...] Hour (toPROL XL)Indications:St able angina,Atheroscle rosis of tangirnaq coronary artery of tangirnaq heart without angina pectoris,Hx of CABG,Essential hypertension with goal blood pressure less than 140/90 Take 0.5 Tablets by mouth in the morning. 0 07/28/2022 Active Alirocumab 75 MG/ML Subcutaneous Solution Auto-injectorIndi cations:Dyslipide allyssa, goal LDL below 100,Statin intolerance INJECT 75 MG (1 PEN) UNDER THE SKIN EVERY 14 DAYS 2 mL 5 11/25/2022 11/25/20 23 Active Additional Information Patient not taking.Reported [...] EVERY DAY 100 Tablet 3 06/11/2023 Active Divalproex Sodium 125 MG Oral Tablet Delayed Release Take 1 Tablet by mouth in the morning and 1 Tablet before bedtime. 0 Active traZODone HCl 150 MG Oral Tablet (Desyrel) Take 1 Tablet by mouth at bedtime. 0 Active Cholestyramine 4 GM/DOSE Oral Powder MIX [...] Carotid stenosis, non-symptomatic, bilat eral 10/11/2018 Old IL (myocardial infarction) 6 HTN, goal below 130/80 [...] 03/20/2020 02/23/2021 Atherosclerotic heart diseas e of tangirnaq coronary artery with other forms of angina pectoris 03/20/2020 02/23/2021 Kidney disease, chronic, stage III (GFR 30-59 ml /min) 05/08/2019 04/11/2020 Overview: Per CKD protocol Stable angina 05/01/2019 05/01/2019 Lyme disease 10/18/2016 11/05/2017 CAD (coronary artery disease) 09/19/2016 Atherosclerosis of tangirnaq co ronary artery without angina pectoris 10/17/2015 04/15/2020 Overview: More specific code in use. Stable angina 08/06/2015 11/05/2017 Statin intolerance 04/26/2014 04/05/2021 SBE (subacute bacterial endocarditis) prophylaxi s candidate 03/23/2013 11/05/2017 Asymptomatic carotid artery stenosis 12/14/2011 10/11/2018 Carotid stenosis, non-symptomatic 12/11/2011 02/29/2012 Overview: Carotid Stenting For High Surgical-Risk Patients. PI: Mario Encinas ext: [phone] pager [phone] CRC: Iris Frost ext. [phone] pager [phone] Blancas's esophagus 02/28/2010 05/12/2021 HYPOTHYROIDISM NOS 05/21/2008 04/22/2017 Gastroesophageal reflux disease without esophagi tis 02/01/2008 02/23/2021 EXAMINATION OF PARTICIPANT IN CLINICAL TRIAL - G ENOMICS 08/02/2007 03/14/2010 Overview: Renamed Per Clinical Trials Billing Project. Study Title: Genomic Markers for Patients with Cardiovascular Disease Project #: [id number] PI: Kaity Liu MD [phone] GENOMICS CARDIO RESEARCH OTHER*[id number] 200601/05/2017 Overview: Renamed Per Clinical Trials Billing Project. Study Title: Genomic Markers for Patients with Cardiovascular Disease Project #: [id number] PI: Kaity Liu MD [phone] Examination of participant in clinical trial 08/04/2008 Overview: DEScover registry #[id number] PI: Ta SC: Anita Manzo This study [...] Date Smoking Tobacco: Never Smokeless Tobacco: Never Tobacco Cessation:Counseling Given: Not Answered Alcohol Use Standard Drinks/Week Comments Yes 0 (1 standard drink = 0.6 oz pur e alcohol) rare Sex Assigned at Date Recorded Not on file Job Start Date Occupation Industry Not on file Not on file Not on file documented as of this encounter Last Filed Vital Signs Vital Sign Reading Time Taken Comments Blood Pressure 130/72 08/30/2023 10:52 AM EDT Pulse 62 08/30/2023 10:52 AM EDT Temperature - - Respiratory Rate - - Oxygen Saturation 97% 08/30/2023 10:52 AM EDT Inhaled Oxygen Concentration - - Weight 71.7 kg (158 lb) 08/30/2023 10:52 AM EDT Height - - Body Mass Index 24.02 06/24/2021 5:40 PM EDT documented in this encounter Functional Status Functional Status Response [...] No 09/19/2016 documented as of this encounter Progress Notes * Gabi Mcmillan PA-C - 08/30/2023 11:00 AM EDT 08/30/2023 Cardiology Follow Up Primary Deputy General Counsel: Dr. Ríos HPI: Jonh Fonseca is a 77 year old male resident of [facility], Room 4B. Patient returns today for routine cardiology follow-up evaluation. Last visit evaluated in clinic 01/2023 by Jamshid Ortiz PA-C. Accompanied by the Cigarette Making Examiner who provides history. The patient is not a reliable source of information due to dementia. No reported chest pain, palpitations, shortness of breath, fluid retention, weakness, lightheadedness, dizziness, near syncope, syncope, melena, hematochezia, or hematuria. Notes loss of appetite. Weight down 11 lbs since last visit. Recently was started on trazodone and memantine. Problem List: Longstanding ischemic heart disease Status post inferior myocardial infarction, September 1995. Status post coronary bypass grafting x 3 in 1996, receiving a SHELLEY graft to the LAD, a saphenous vein graft to the obtuse marginal, saphenous vein graft to the ramus intermedius for diffuse disease. Coronary intervention in August 2000, mid right coronary artery, and subsequent distal right coronary artery in 2000. 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 Acute coronary syndrome 09/18/2016 and subsequent referral to [facility] and cardiac catheterization, with resultant drug-eluting stent to the right coronary artery for complex proximalvessel disease with good result. Class 2 stable angina pectoris, stable. Systolic dysfunction, EF 40-45% via December 2021 resting echocardiography at [facility]. Atrial flutter. Diagnosed in December 2021 while admitted with COVID. 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 Hypertension Diabetes mellitus Atherosclerotic carotid disease status post right carotid stenting for high- grade obstruction Chronic kidney disease GERD Hypothyrodism Urinary incontinence BPH Alzheimer's dementia. Peripheral neuropathy REVIEW OF SYSTEMS: See HPI for pertinent positives. All others negative other than those noted in the HPI. CONSTITUTIONAL: No change in weight, No weakness, No fatigue and No fevers, No sweats or chills. PULMONARY: No cough, sputum, or hemoptysis, No wheezing, No shortness of breath and No recent change in breathing. CARDIOVASCULAR: No chest pain, No dyspnea on exertion, No edema, No palpitations and No syncope. GASTROINTESTINAL: No abdominal pain, No change in bowel habits, No significant heartburn, No nausea, No vomiting, No diarrhea, No constipation, No blood in stools or black tarry stools. No dysphagia. HEMATOLOGIC: No abnormal bleeding and No bruising. NEUROLOGICAL: Normal balance, No headaches and No weakness. Review of patient's allergies indicates: Allergen Reactions Iodinated Contrast Media Chills/rigors Niaspan [Niacin Er] Rash Statins MYALGIAS Current Outpatient Medications Medication Sig Dispense Refill ACETAMINOPHEN 500 MG PO TABS 1 TABLET EVERY 4 HOURS NEEDED 100 0 MULTIVITAMINS PO TABS 1 tablet daily OMEGA 3 1000 MG PO CAPS 3 CAPSULES DAILY WITH A MEAL 90 Cap 11 Finasteride 5 MG Oral Tablet (Proscar) TAKE ONE TABLET BY MOUTH EVERY DAY 90 Tab 0 Fenofibrate Micronized 200 MG Oral Capsule TAKE ONE CAPSULE BY MOUTH EVERY DAY BEFORE BREAKFAST 90 Cap 0 Isosorbide Mononitrate ER 60 MG Oral Tablet Extended Release 24 Hour (Imdur) Take 1 Tab by mouth daily. 90 Tab 3 Levothyroxine Sodium 75 MCG Oral Tablet (Levoxyl) TAKE 1 TABLET BY MOUTH DAILY AT LEAST 30 MINUTES PRIOR TO FIRST MEAL OF THE DAY OR OTHER MEDICATIONS 90 Tab 3 Tamsulosin HCl 0.4 MG Oral Capsule (Flomax) Take 1 Capsule by mouth at bedtime. Omeprazole 20 MG Oral Capsule Delayed Release (PriLOSEC) Take 1 Capsule by mouth in the morning. D3-1000 25 MCG (1000 UT) Oral Capsule (Cholecalciferol) Take 1 Capsule by mouth in the morning. Memantine HCl 5 MG Oral Tablet (Namenda) Take 1 Tablet by mouth in the morning and 1 Tablet before bedtime. Aspirin Low Dose 81 MG Oral Tablet Delayed Release Take 1 Tablet by mouth in the morning. Myrbetriq 50 MG Oral Tablet Extended Release 24 Hour Take 1 Tablet by mouth in the morning. Metoprolol Succinate ER 25 MG Oral Tablet Extended Release 24 Hour (toPROL XL) Take 0.5 Tablets by mouth in the morning. Escitalopram Oxalate 5 MG Oral Tablet (Lexapro) Take 1 Tablet by mouth in the morning. Ezetimibe 10 MG Oral Tablet (Zetia) TAKE ONE TABLET BY MOUTH EVERY DAY 90 Tablet 3 Clopidogrel Bisulfate 75 MG Oral Tablet (pLAVix) TAKE ONE TABLET BY MOUTH EVERY DAY 100 Tablet 3 Divalproex Sodium 125 MG Oral Tablet Delayed Release Take 1 Tablet by mouth in the morning and 1 Tablet before bedtime. traZODone HCl 150 MG Oral Tablet (Desyrel) Take 1 Tablet by mouth at bedtime. Nitroglycerin 0.4 MG Sublingual Tablet Sublingual (Nitrostat) Place 1 Tab under the tongue as needed for Pain, Chest. 25 Tab 11 No current facility-administered medications for this visit. Past Medical History: Diagnosis Date Backache Blancas's esophagus 02/28/2010 BPH without obstruction/lower urinary tract symptoms s/p TURP 01/03 Cervical spinal stenosis 01/06/08 C4-C5, C5-C6 Coronary atherosclerosis S/P CABG x 3 in 1996 - SHELLEY to LAD, SVG to OM, SVG to ramus (occluded by cath in 1999) Dyslipidemia, goal to be determined GERD (gastroesophageal reflux disease) HTN, goal below 130/80 04/16/2016 HTN, goal to be determined Hypothyroidism Lyme disease Old IL (myocardial infarction) 09/19/2016 Renal artery stenosis (HCC) s/p renal angioplasty 10/29 Family History Problem Relation Age of Onset Other (AAA) Other Denies FH of AAA Social History Socioeconomic History Marital status: Occupational History Occupation: [employer] Occupation: [employer] 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 Alert. Examined in chair. HEENT: Normocephalic. Atraumatic. PERRL. EOMI. Conjunctiva and sclera clear. NECK: No JVD. Heart: Irregular. S1 and S2 noted. No murmur. No rubs or gallops. Lungs: Clear to auscultation. No wheezes. No rhonchi. No rales. Abdomen: Normal bowel sounds. Soft. Nontender. No masses or organomegaly. No abdominal bruits. Extremities: No edema. No clubbing or cyanosis. Pulses: radial=2/4, posterior tibial=2/4, dorsalis pedis = 2/4. NEURO: No focal deficits. PSYCH: Flat affect, limited speech. DATA Labs & Imaging Reviewed Below: EKG August 2023: personally reviewed, Atrial flutter with rate 57 bpm. Incomplete RBBB. Old anterior infarct. T wave abnormality in inferior leads. Compared to prior EKG 12/2021, no significant changes noted Echo report reviewed dated December 31, 2021: Rhythm during exam was atrial flutter. Normal LV chamber size with mild concentric LVH. Moderately reduced LV systolic function with moderate global hypokinesis, ejection fraction 40-45%. RV cavity size is normal, mildly reduced RV systolic function. Mild AI. ASSESSMENT/PLAN: 77 year old year old male 1. Coronary artery disease involving tangirnaq coronary artery of tangirnaq heart without angina pectoris 2. Hx of CABG 3. Stable angina 4. Essential hypertension with goal blood pressure less than 140/90 5. Dyslipidemia, goal LDL below 70 6. Atrial flutter, unspecified type (HCC) Seemingly stable cardiac signs and symptoms, see problem list above. Continue conservative non-surgical medical management. Prior auth in process for Praluent, statin intolerant. No changes made today. Routine lab work ordered. DISPOSITION: Follow up 6 months or sooner if symptoms worsen/fail to improve. All questions were answered to the patients satisfaction. Patient advised to report to ED with any and all emergencies. The patient agrees to the above plan and will call with additional questions or concerns. Gabi Mcmillan PA-C Cardiology, [address] [place] [address] I spent a total of 40 minutes on the date of service in preparation, delivery, and documentation ofthe care provided to Jonh Fonseca excluding any time spent in the performance of separately billed services. This chart was completed in part utilizing [employer] Speech Voice Recognition Software. Grammatical errors, random word insertions, pronoun errors, and incomplete sentences are an occasional consequence of this system due to software limitations, ambient noise, and hardware issues. Any formal questions or concerns about the content, text, or information contained within the body of this dictation should be directly addressed to the provider for clarification. documented in this encounter Nursing Notes * Rama Castañeda CMA - 08/30/2023 10:52 AM EDT Examination Room: 7 Name: Jonh Fonseca Date of : (1945) Reason for Visit: 6m Interim Hospitalization(s): none Problems/Concerns: denied Chest Pain/SOB: denied My [facility] is a way you can talk to your provider online through e-mail. Would you like to sign up? I can activate it for you? ALREADY ACTIVE Patient was instructed to not get up on the exam table until directed and assisted by their provider; patient is to remain seated in the chair/ wheelchair/ exam table for fall prevention and safety reasons. Patient is aware to have assistance to step down off exam table with personnel. Patient voiced full comprehension of instructions. documented in this encounter Plan of Treatment Upcoming Encounters Date Type Specialty Care Team Description 03/06/2024 Office Visit Cardiology Gabi Mcmillan PA-C [address] [place] [address] [place] [id number] Scheduled Orders Name Type Priority Associated Diagnoses Orde r Schedule EKG EKG Routine Coronary artery disease involving tangirnaq coronary artery of tangirnaq heart without angina pectoris Dyslipidemia, goal LDL below 70 Atrial flutter, unspecified type (HCC) Essential hypertension with goal blood pressure less than 140/90 Hx of CABG Stable angina (HCC) Ordered: 08/30/2023 CBC Lab Routine Coronary artery disease involving tangirnaq coronary artery of tangirnaq heart without angina pectoris Dyslipidemia, goal LDL below 70 Atrial flutter, unspecified type (HCC) Essential hypertension with goal blood pressure less than 140/90 Hx of CABG Stable angina (HCC) Ordered: 08/30/2023 COMPREHENSIVE METABOLIC PANEL Lab Routine Coronary artery disease involving tangirnaq coronary artery of tangirnaq heart without angina pectoris Dyslipidemia, goal LDL below 70 Atrial flutter, unspecified type (HCC) Essential hypertension with goal blood pressure less than 140/90 Hx of CABG Stable angina (HCC) Ordered: 08/30/2023 Scheduled Procedures Name Priority Associated Diagnoses Date/Ti me COLONOSCOPY FLEXIBLE PROXIMAL DIAGNOSTIC Recall History of colon polyps ESOPHAGOGASTRODUODENOSCOPY ( EGD), FLEXIBLE, TRANSORAL, DIAGNOSTIC Recall Blancas's esophagus Health Maintenance Due Date Last Done Comments Albumin/Creatinine Ratio 1963 Hepatitis C Screening 1963 CKD HGB USE SMARTSET 23915 02/11/202102/11, 04/20/2019, 01/17/2019, Additional history exists CKD PHOS USE SMARTSET 53667 03/20/2021 03/20/2020 COVID-19 Vaccine (3 - Pfizer [...] this encounter Medical Devices Implanted Type Area Novelties Sales Representative Device Identifier Shelf Expiration Date Model / Serial / Lot Stent Aclnk [id number] - [id number] Implanted:Qty: 1 on 03/18/2012 at [facility] Right: Carotid GUIDANT 05/28/2013 [id number] / / [id number] documented as of this encounter Visit Diagnoses Diagnosis Coronary artery disease involving tangirnaq coronary artery of tangirnaq heart without angina pectoris- Primary Hx of [...] the patient have Health Care Power of Medical Claims Representative? No Code Status History Code Status Date Activated Date Inactivated Comments Full Code 09/19/2016 10:30 AM 09/19/2016 6:27 PM Th is order reflects the patients wishes and were consensually agreed upon. Question Answer Comments Discussion of Advance Directives occurred with: Patient Does the patient have a Living Will? No Does the patient have Health Care Power of Medical Claims Representative? No Full Code 03/18/2012 9:39 AM 03/19/2012 3:39 PM This order reflects the patients wishes and were consensually agreed upon. Full Code 05/21/2008 9:16 PM 05/24/2008 6:59 PM Care Teams Internet Programmer Relationship Specialty Start Date End Date Stanford Hansen MD [address] [place] [address] PCP - General Family Medicine 02/23/21 documented as of this encounter"
--- OUTSIDE RECORDS SUMMARY | 2023-10-12 22:25 | External Medical Summary | Summary of Care ---
Author Name Unknown Organization [facility] Address [address] [place] [address] Phone [phone] Care Team Providers Care Cardiopulmonary Specialist Name Role Phone Stanford Hansen MD Primary Care Provider [phone] Reason for Visit * Reason Comments Medication Refill Encounter Details Date Type Department Care Team (Late st Contact Info) Description 09/22/2023 Refill Cardiology, [facility] [address] [place] [address] Jeane Prescott PA-C [address] [place] [address] Dyslipidemia, goal LDL below 100; Statin intolerance Allergies Active Allergy Reactions Criticality Noted Date Comments Iodinated Contrast Media Chills/rigors 09/23/20 10 Niacin Er 07/21/2012 Rash Statins 05/27/2007 MYALGIAS documented as of this encounter (statuses as of 09/23/2023) Medications Medication Sig Dispensed Refills Start Date [...] Extended Release 24 Hour (Imdur)Indications: Stable angina,Old MO (myocardial infarction) Take 1 Tab by mouth [...] Hour (toPROL XL)Indications:Stab le angina,Atherosclero sis of [place] coronary artery of [place] heart without angina pectoris,Hx of CABG,Essential hypertension with goal blood pressure less than 140/90 Take 0.5 Tablets by mouth in the morning. 0 07/28/2022 Active Escitalopram Oxalate 5 MG Oral Tablet (Lexapro) Take 1 Tablet by mouth in the morning. 0 Active Ezetimibe 10 MG Oral Tablet (Zetia)Indications: Dyslipidemia, goal LDL below 100 TAKE ONE TABLET BY MOUTH EVERY DAY 90 Tablet 3 11/26/2022 12/26/2023 Active Clopidogrel Bisulfate 75 MG Oral Tablet (pLAVix)Indications :Atrial flutter (HCC) TAKE ONE TABLET BY MOUTH EVERY DAY 100 Tablet 3 06/11/2023 Active Divalproex Sodium 125 MG Oral Tablet Delayed Release Take 1 Tablet by mouth in the morning and 1 Tablet before bedtime. 0 Active traZODone HCl 150 MG Oral Tablet (Desyrel) Take 1 Tablet by mouth at bedtime. 0 Active Alirocumab 75 MG/ML Subcutaneous Solution Auto-injectorIndica tions:Dyslipidemia, goal LDL below 100,Statin intolerance Inject 75 mg under the skin every 14 days. 6 mL 3 08/31/2023 Active Praluent 75 MG/ML Subcutaneous Solution Auto-injector (Alirocumab)Indicat ions:Dyslipidemia, goal LDL below 100,Statin intolerance INJECT 75 MG (1 PEN) UNDER THE SKIN EVERY 14 DAYS 2 mL 5 09/23/2023 09/22/2024 Active documented as of this encounter (statuses as of 09/23/2023) Active Problems Problem Noted Date Diagnosed Date Atrial flutter 01/26/2022 Ischemic cardiomyopathy 01/26/2022 Dyslipidemia, goal LDL below 70 01/26/2022 Stable angina 03/20/2020 Hypertensive kidney disease with chronic kidney disease stage III 03/19/2020 Overview: HTN + CKD III - conditions have assumed relationship per current coding guidelines Carotid stenosis, non-symptomatic, bilateral Old MO (myocardial infarction) 09/19/2016 HTN, goal below 130/80 04/16/2016 S/P CABG x 3 05/14/2014 Hereditary and idiopathic peripheral neuropathy 03/08/2014 Acquired hypothyroidism 08/24/2013 Dyslipidemia 11/14/2009 Overview: Per Lipid Taxonomy. BPH with obstruction/lower urinary tract symptom s Overview: s/p TURP 2/05 documented as of this encounter (statuses as of 09/23/2023) Resolved Problems Problem Noted Date Diagnosed Date Resolved Date Polyneuropathy in other dise ases classified elsewhere 03/20/2020 02/23/2021 Atherosclerotic heart diseas e of [place] coronary artery with other forms of angina pectoris 03/20/2020 02/23/2021 Kidney disease, chronic, sta ge III (GFR 30-59 ml/min) 05/08/2019 04/11/2020 Overview: Per CKD protocol Stable angina 05/01/2019 05/01/2019 Lyme disease 10/18/2016 11/05/2017 CAD (coronary artery disease) 09/19/2016 04/10/2019 Atherosclerosis of [place] co ronary artery without angina pectoris 10/17/2015 04/15/2020 Overview: More specific code in use. Stable angina 08/06/2015 11/05/2017 Statin intolerance 04/26/2014 1 SBE (subacute bacterial endo carditis) prophylaxis candidate 03/23/2013 11/05/2017 Asymptomatic carotid artery stenosis 12/14/2011 10/11/2018 Carotid stenosis, non-symptomatic 12/11/2011 02/29/2012 Overview: Carotid Stenting For High Surgical-Risk Patients. PI: Mario Encinas ext: [phone] pager [phone] CRC: Iris Frost ext. [phone] pager [phone] Blancas's esophagus 02/28/2010 05/12/20 21 HYPOTHYROIDISM NOS 05/21/2008 7 Gastroesophageal reflux dise ase without esophagitis 02/01/2008 02/23/2021 EXAMINATION OF PARTICIPANT I N CLINICAL TRIAL - GENOMICS 08/02/2007 03/14/2010 Overview: Renamed Per Clinical Trials Billing Project. Study Title: Genomic Markers for Patients with Cardiovascular Disease Project #: [id number] PI: Kaity Liu MD [phone] GENOMICS CARDIO RESEARCH OTHER*[id number] 08/02/2007 01/05/2017 Overview: Renamed Per Clinical Trials Billing Project. Study Title: Genomic Markers for Patients with Cardiovascular Disease Project #: [id number] PI: Kaity Liu MD [phone] Examination of participant in clinical trial 5 08/04/2008 Overview: [id number] PI: Ta SC: Anita Manzo This study is being done to examine ways in which physicians use the latest PCI treatments, including coronary angioplasty and different types of coronary stents. This is a registry, used only for data collection. There are no investigational drugs or devices. ABN LIVER FUNCTION STUDY 06/30/200406/2017 DIARRHEA 08/27/2003 11/05/2017 REPLACE 2 #[id number] [place] 11/18/2001 11/05/2017 S/P ANGIOPLASTY WITH STENT RCA 11/18/2001 02/23/2021 Overview: 03/03: The patient has undergone elective percutaneous coronary intervention on a distal right coronary lesion felt to be responsible at least in part for progression of symptoms. Mixed dyslipidemia 02/24/200111/14/ 9 Overview: Per Lipid Taxonomy. HYPERLIPIDEMIA NEC-NOS 10/23 Overview: Per Lipid Taxonomy RENAL ARTERY STENOSIS 2018 Overview: s/p renal angioplasty 10/29 CORONARY ATHEROSCLEROSIS VESSEL NOS 10/17/2015 Overview: S/P CABG x 3 in 1996 - SHELLEY to LAD, SVG to OM, SVG to ramus (occluded by cath in 1999) documented as of this encounter (statuses as of 09/23/2023) Immunizations Name Administration Dates Next Due COVID-19 mRNA, LNP-s, No Pre serve, 2-Dose Series ([employer]) 03/13/2021,02/20/2021 Pneumococcal Conjugate Vacc, 13 Valent (Prevnar) [...] 0.6 oz pur e alcohol) rare Sex and Gender Information Value Date Recorded Sex Assigned at Not on file Gender Identity Not on file Sexual Orientation Not on file Job Start Date Occupation [...] encounter Miscellaneous Notes * Telephone Encounter - Gabi Vallecillo PA-C - 09/23/2023 10:38 AM EDT Signed Prescriptions: Disp Refills Praluent 75 MG/ML Subcutaneous Solution Au*2 mL 5 Sig: INJECT 75MG (1 PEN) UNDER THE SKIN EVERY 14 DAYSAuthorizing Provider: GABI VALLECILLO * Telephone Encounter - SELMA Whitley - 09/23/2023 10:13 AM EDTPending Prescriptions: Disp Refills Praluent 75 MG/ML Subcutaneous Solution Au*2 mL 5 Sig: INJECT 75 MG (1 PEN) UNDER THE SKIN EVERY 14 DAYS * Telephone Encounter - SELMA Whitley - 09/23/2023 10:13 AM EDT Pharmacy change Did you pend patient's preferred pharmacy and medication before forwarding?yes Pharmacy: [facility] Pending Prescriptions: Disp Refills Praluent 75 MG/ML Subcutaneous Solution A*2 mL 5 Sig: INJECT 75 MG (1 PEN) UNDER THE SKIN EVERY 14 DAYS Last Visit: 08/30/2023 (in office), Visit date not found (telemedicine) Next Visit: 03/06/2024 If no future appointments scheduled, and last appointment is greater than a year ago, please schedule patient for a follow-up appointment Last date the medication was ordered: 08-31-2023 Is this request for a controlled substance?No Urine Drug Screen:No results found. However, due to the size of the patient record, not all encounters were searched. Please check Results Review for a complete set of results. Patient Phone Numbers Labs: Lab Results Component Value Date/Time CREAT 1.3 (H) 04/04/2021 07:16 AM CREAT 1.0 06/14/2020 03:48 PM CREAT 1.0 11/06/1996 06:50 AM POTASSIUM 4.5 04/04/2021 07:16 AM POTASSIUM 4.5 06/14/2020 03:48 PM POTASSIUM 4.1 11/06/1996 06:50 AM TSH 7.94 (H) 04/04/2021 07:16 AM TSH 4.41 (H) 03/20/2020 09:14 AM LDLCALC 107 08/17/2023 12:00 AM LDLCALC 57 05/06/2022 12:00 AM LDLDIRECT 93 04/04/2021 07:16 AM LDLDIRECT 141 (H) 03/05/2020 01:06 PM ALT 33 04/20/2019 04:12 PM ALT 26 09/04/1996 08:20 AM HGBA1C 5.9 04/22/2017 10:31 AM documented in this encounter Plan of Treatment Upcoming Encounters Date Type Department Care Team (Late st Contact Info) Description 03/06/2024 9:30 AM EDT Office Visit Cardiology, [facility] [address] [place] [address] Gabi Vallecillo PA-C [address] [place] [address] Scheduled Procedures Name Priority Associated Diagnoses Date/Ti me COLONOSCOPY FLEXIBLE PROXIMAL DIAGNOSTIC Recall History of colon polyps ESOPHAGOGASTRODUODENOSCOPY ( EGD), FLEXIBLE, TRANSORAL, DIAGNOSTIC Recall Blancas's esophagus Health Maintenance Due Date Last Done Comments Albumin/Creatinine Ratio 1963 Hepatitis C Screening 1963 Blancas's Esophagus Surveilance 12/27/2020 12/27/2017 CKD HGB USE SMARTSET 40014 02/11/202102/11, 04/20/2019, 01/17/2019, Additional history exists CKD PHOS USE SMARTSET 14630 03/20/2021 03/20/2020 Depression Screening 06/14/2021 06/14/2020 GFR 10/05/2021 04/04/2021, 05/29, 03/20/2020, Additional history exists TSH 04/04/2022 04/04/2021, 02/28, 01/17/2019, Additional history exists DTaP,Tdap,and Td Vaccines (2 - Td or Tdap) 11/21/2022 11/21/2012, 09/27/2000 COLONOSCOPY-EVERY 5 YRS AGES 18-100 12/27/2022 12/27/2017, 12/27/2017, 10/07/2012 COVID-19 Vaccine ( - season) 2023 03/13/2021, 02/20/2021 Influenza Vaccine (FLU [...] this encounter Medical Devices Implanted Type Area Global Recruiter Device Identifier Shelf Expiration Date Model / Serial / Lot Stent Aclnk [id number] [id number] - [id number] Implanted:Qty: 1 on 03/18/2012 at OR [facility] [place] Right: Carotid GUIDANT 05/28/2013 [id number] / / [id number] documented as of this encounter Visit Diagnoses Diagnosis Dyslipidemia, goal LDL below 100 Other and [...] the patient have Health Care Power of Vocational Guidance Counselor? No Code Status History Code Status Date Activated Date Inactivated Comments Full Code 09/19/2016 10:30 AM 09/19/2016 6:27 PM Th is order reflects the patients wishes and were consensually agreed upon. Question Answer Comments Discussion of Advance Directives occurred with: Patient Does the patient have a Living Will? No Does the patient have Health Care Power of Vocational Guidance Counselor? No Full Code 03/18/2012 9:39 AM 03/19/2012 3:39 PM This order reflects the patients wishes and were consensually agreed upon. Full Code 05/21/2008 9:16 PM 05/24/2008 6:59 PM Care Teams Cardiopulmonary Specialist Relationship Specialty Start Date End Date Stanford Hansen MD [address] [place] [address] PCP - General Family Medicine 02/23/21 documented as of this encounter
--- OUTSIDE RECORDS SUMMARY | 2023-10-12 22:26 | External Medical Summary | Summary of Care ---
Author Name Unknown Organization [facility] Address [address] [facility] [place] [address] Phone [phone] Care Team Providers Care Information Systems Manager Name Role Phone Stanford Hansen MD Primary Care Provider [phone] Reason for Visit * Reason Onset Date Comments Medication Pre-auth 08/08/2023 Precert In Process 08/08/2023 11 [place] GHP PRA LUENT Precert Denied 08/08/2023 PRALUENT Encounter Details Date Type Department Care Team Description 08/08/2023 Telephone Cardiology, [facility] [address] [place] [id number] Jeane Prescott PA-C [address] [place] [address] Medication Pre-auth; Precert In Process (1... Allergies Active Allergy Reactions Severity Noted Date Comments Iodinated Contrast Media Chills/rigors 09/23/20 10 Niacin Er 07/21/2012 Rash Statins 05/27/2007 MYALGIAS documented as of this encounter (statuses as of 08/25/2023) Medications Medication Sig Dispensed Refills Start Date [...] Extended Release 24 Hour (Imdur)Indications: Stable angina,Old [place] (myocardial infarction) Take 1 Tab by mouth [...] Hour (toPROL XL)Indications:Stab le angina,Atherosclero sis of [place] coronary artery of [place] heart without angina pectoris,Hx of CABG,Essential hypertension [...] as of this encounter (statuses as of 08/25/2023) Active Problems Problem Noted Date Atrial flutter 01/26/2022 Ischemic cardiomyopathy 01/26/2022 Dyslipidemia, goal LDL below 70 01/26/20 22 Stable angina 03/20/2020 Hypertensive kidney disease with chronic kidney disease stage III 03/19/2020 Overview: HTN + CKD III - conditions have assumed relationship per current coding guidelines Carotid stenosis, non-symptomatic, bilat eral 10/11/2018 Old ID (myocardial infarction) 6 HTN, goal below 130/80 04/16/2016 S/P CABG x 3 05/14/2014 Hereditary and idiopathic peripheral ovidio ropathy 03/08/2014 Acquired hypothyroidism 08/24/2013 Dyslipidemia 11/14/2009 Overview: Per Lipid Taxonomy. BPH with obstruction/lower urinary tract symptoms Overview: s/p TURP 2/05 documented as of this encounter (statuses as of 08/25/2023) Resolved Problems Problem Noted Date Resolved Date Polyneuropathy in other diseases classified else where 03/20/2020 02/23/2021 Atherosclerotic heart diseas e of [place] coronary artery with other forms of angina pectoris 03/20/2020 02/23/2021 Kidney disease, chronic, stage III (GFR 30-59 ml /min) 05/08/2019 04/11/2020 Overview: Per CKD protocol Stable angina 05/01/2019 05/01/2019 Lyme disease 10/18/2016 11/05/2017 CAD (coronary artery disease) 09/19/2016 Atherosclerosis of [place] co ronary artery without angina pectoris 10/17/2015 04/15/2020 Overview: More specific code in use. Stable angina 08/06/2015 11/05/2017 Statin intolerance 04/26/2014 04/05/2021 SBE (subacute bacterial endocarditis) prophylaxi s candidate 03/23/2013 11/05/2017 Asymptomatic carotid artery stenosis 12/14/2011 10/11/2018 Carotid stenosis, non-symptomatic 12/11/2011 02/29/2012 Overview: Carotid Stenting For High Surgical-Risk Patients. PI: Mario Encinas ext: [phone] pager [phone] CRC: Iris Frost ext. [phone] pager [phone] Blancas's esophagus 02/28/2010 05/12/2021 HYPOTHYROIDISM NOS 05/21/2008 04/22/2017 Gastroesophageal reflux disease without esophagi tis 02/01/2008 02/23/2021 EXAMINATION OF PARTICIPANT IN CLINICAL TRIAL - G ENOMICS 08/02/2007 03/14/2010 Overview: Renamed Per Clinical Trials Billing Project. Study Title: Genomic Markers for Patients with Cardiovascular Disease Project #: [id number] PI: Kaity Liu MD [phone] GENOMICS CARDIO RESEARCH OTHER*[id number] 200601/05/2017 Overview: Renamed Per Clinical Trials Billing Project. Study Title: Genomic Markers for Patients with Cardiovascular Disease Project #: [id number] PI: Kaity Liu MD [phone] Examination of participant in clinical trial 08/04/2008 Overview: [facility] registry #[id number] PI: Ta SC: Anita Manzo This study [...] as of this encounter (statuses as of 08/25/2023) Immunizations Name Administration Dates Next Due COVID-19 mRNA, LNP-s, No Pre serve, 2-Dose Series ([employer]) 03/13/2021,02/20/2021 Pneumococcal Conjugate Vacc, 13 Valent (Prevnar) 04/16/2016 Pneumococcal Polysaccharide PPV23 (Pneumovax) 04/22/2017,05/22/2008,12/05/2002 05/22/2009 Seasonal Influenza, PF, 6 mo ns & Above, IM , (Flulaval) 10/11/2018,11/05/2017 Seasonal Influenza, Quadriva lent, No Preserve, [...] EDT Lipid panel back. LDL increased. Called usp to see if patient is actually taking Praluent. Nurse if out of the office today, will call back tomorrow Lo Gomez Pharm D Clinical Pharmacist Cardiology 08/25/2023,10:54 AM * Telephone Encounter - Lo Gomez RPh - 08/13/2023 2:56 PM EDT Physician may complete a peer to peer within 24 hours by calling [phone]. NO UPDATED LDL New or re-auth: Re-authorization Approved/Denied: Denied Drug Name and Formulation: PRALUENT 75 MG ML How Prescribed(directions/sig): INJECT EVERY 14 DAYS Day Supply: 2 PER Did you receive insurance information from outside the chart? No, received insurance information within the chart Valid auth start date: N/A Valid auth end date: N/A Rx Insurance Info: [employer] GOLD Rx Benefits Verified through/on date: [facility] 07/2023 Referral (TE) received from: [facility] Patient needs updated lipid panel. Last was 04/2022 Patient currently at [facility]. Spoke with nurse Simon. Will fax over lipid panel order. [phone] Once results received, will resubmit [place] Gomez Pharm D Clinical Pharmacist Cardiology 08/13/2023,2:57 PM * Telephone Encounter - Emi Lawrence CPhT - 08/08/2023 9:53 AM EDT New or re-auth: re-auth Patient Jonh Fonseca needs a prior authorization for their Praluent through their [employer] insurance. ID: [id number] BIN:[id number] PCN:[id number] Target ship date is 08/12. Thank you very much, Emi Lawrence Machine Shop Inspector Pharm[facility] [employer] 08/08/2023,9:54 AM documented in this encounter Plan of Treatment Upcoming Encounters Date Type Specialty Care Team Description 08/30/2023 Office Visit Cardiology Gabi Mcmillan PA-C [address] [place] [address] [place] [address] Scheduled Orders Name Type Priority Associated Diagnoses [...] C Screening 1963 CKD HGB USE SMARTSET 55690 02/11/202102/11, 04/20/2019, 01/17/2019, Additional history exists CKD PHOS USE SMARTSET 52505 03/20/2021 03/20/2020 COVID-19 Vaccine (3 - Pfizer [...] this encounter Medical Devices Implanted Type Area Cardiopulmonary Technician Device Identifier Shelf Expiration Date Model / Serial / Lot Stent Aclnk 7-17x30 [id number] - [id number] Implanted:Qty: 1 on 03/18/2012 at OR [facility] [place] Right: Carotid GUIDANT 05/28/2013 [id number] / / [id number] documented as of this encounter Visit Diagnoses Diagnosis Dyslipidemia, goal LDL below 70- Primary Other and unspecified hyperlipidemia documented in this encounter Advance Directives Latest Code Status on File Code Status Date Activated Date Inactivated Comments Full Code 05/17/2020 10:04 AM 05/17/2020 2:50 PM This order reflects the patients wishes and were consensually agreed upon. Question Answer Comments Discussion of Advance Directives occurred with: Patient Does the patient have a Living Will? No Does the patient have Health Care Power of Education Administrator? No Code Status History Code Status Date Activated Date Inactivated Comments Full Code 09/19/2016 10:30 AM 09/19/2016 6:27 PM Th is order reflects the patients wishes and were consensually agreed upon. Question Answer Comments Discussion of Advance Directives occurred with: Patient Does the patient have a Living Will? No Does the patient have Health Care Power of Education Administrator? No Full Code 03/18/2012 9:39 AM 03/19/2012 3:39 PM This order reflects the patients wishes and were consensually agreed upon. Full Code 05/21/2008 9:16 PM 05/24/2008 6:59 PM Care Teams Information Systems Manager Relationship Specialty Start Date End Date Stanford Hansen MD [address] [place] [address] PCP - General Family Medicine 02/23/21 documented as of this encounter
--- OUTSIDE RECORDS SUMMARY | 2023-10-12 22:26 | External Medical Summary | Summary of Care ---
Author Name Unknown Organization [facility] Address [address] [place] [address] Phone [phone] Care Team Providers Care Hammer Heater Name Role Phone Stanford Hansen MD Primary Care Provider [phone] Encounter Details Date Type Department Care Team Description 08/06/2023 Specialty Pharmacy [facility], [address] [place] [address] Medication, [facility]ill, [address] [address] Allergies Active Allergy Reactions Severity Noted Date [...] Extended Release 24 Hour (Imdur)Indications: Stable angina,Old NV (myocardial infarction) Take 1 Tab by mouth [...] Hour (toPROL XL)Indications:Stab le angina,Atherosclero sis of [place] coronary artery of [place] heart without angina pectoris,Hx of CABG,Essential hypertension [...] 01/26/2022 Dyslipidemia, goal LDL below 70 01/26/20 Stable angina 03/20/2020 Hypertensive kidney disease with chronic kidney disease stage III 03/19/2020 Overview: HTN + CKD III - conditions have assumed relationship per current coding guidelines Carotid stenosis, non-symptomatic, bilat eral 10/11/2018 Old NV (myocardial infarction) 6 HTN, goal below 130/80 [...] 03/20/2020 02/23/2021 Atherosclerotic heart diseas e of [place] coronary artery with other forms of angina pectoris 03/20/2020 02/23/2021 Kidney disease, chronic, stage III (GFR 30-59 ml /min) 05/08/2019 04/11/2020 Overview: Per CKD protocol Stable angina 05/01/2019 05/01/2019 Lyme disease 10/18/2016 11/05/2017 CAD (coronary artery disease) 09/19/2016 Atherosclerosis of [place] co ronary artery without angina pectoris 10/17/2015 04/15/2020 Overview: More specific code in use. Stable angina 08/06/2015 11/05/2017 Statin intolerance 04/26/2014 04/05/2021 SBE (subacute bacterial endocarditis) prophylaxi s candidate 03/23/2013 11/05/2017 Asymptomatic carotid artery stenosis 12/14/2011 10/11/2018 Carotid stenosis, non-symptomatic 12/11/2011 02/29/2012 Overview: Carotid Stenting For High Surgical-Risk Patients. PI: Mario Encinas ext: [phone] pager [phone] CRC: Iris Frost ext. [phone] pager [phone] Blancas's esophagus 02/28/2010 05/12/2021 HYPOTHYROIDISM NOS 05/21/2008 04/22/2017 Gastroesophageal reflux disease without esophagi tis 02/01/2008 02/23/2021 EXAMINATION OF PARTICIPANT IN CLINICAL TRIAL - G ENOMICS 08/02/2007 03/14/2010 Overview: Renamed Per Clinical Trials Billing Project. Study Title: Genomic Markers for Patients with Cardiovascular Disease Project #: [id number] PI: Kaity Liu MD [phone] GENOMICS CARDIO RESEARCH OTHER*[id number] 200601/05/2017 Overview: Renamed Per Clinical Trials Billing Project. Study Title: Genomic Markers for Patients with Cardiovascular Disease Project #: [id number] PI: Kaity Liu MD [phone] Examination of participant in clinical trial 08/04/2008 Overview: [id number] PI: Ta SC: Anita Manzo This study [...] as of this encounter Progress Notes * Carrol Scott CPhT - 08/12/2023 4:48 PM EDT [place] still pending spoke to [facility] to make aware 08/12 Carrol Scott CPhT Ultrasound Coordinator [facility] 08/12/2023,4:49 PM * Yessi Orr CPhT - 08/06/2023 12:09 PM EDT Prescribed medication: Medication: Praluent Shipment date: 08/12 - pending pa - [facility]ara [facility]da Delivery method: Specialty Mail Location Medication Delivered too? Prescription Address: [address] [place] [address] Yessi Orr CPhT [facility] 08/06/2023,12:10 PM documented in this encounter Plan of Treatment Upcoming Encounters Date Type Specialty Care Team Description 08/30/2023 Office Visit Cardiology Gabi Mcmillan PA-C [address] [place] [address] Scheduled Procedures Name Priority Associated Diagnoses Date/Ti me COLONOSCOPY FLEXIBLE PROXIMAL DIAGNOSTIC Recall History of colon polyps ESOPHAGOGASTRODUODENOSCOPY ( EGD), FLEXIBLE, TRANSORAL, DIAGNOSTIC Recall Blancas's esophagus Health Maintenance Due Date Last Done Comments Albumin/Creatinine Ratio 1963 Hepatitis C Screening 1963 CKD HGB USE SMARTSET 48422 02/11/202102/11, 04/20/2019, 01/17/2019, Additional history exists CKD PHOS USE SMARTSET 11384 03/20/2021 03/20/2020 COVID-19 Vaccine (3 - Pfizer [...] this encounter Medical Devices Implanted Type Area Real Estate Associate Attorney Device Identifier Shelf Expiration Date Model / Serial / Lot Stent Aclnk 7-17x30 [id number] - [id number] Implanted:Qty: 1 on 03/18/2012 at OR [facility] [place] Right: Carotid GUIDANT 05/28/2013 [id number] / / [id number] documented as of this encounter Advance Directives [...] the patient have Health Care Power of Plan Nurse? No Code Status History Code Status Date Activated Date Inactivated Comments Full Code 09/19/2016 10:30 AM 09/19/2016 6:27 PM Th is order reflects the patients wishes and were consensually agreed upon. Question Answer Comments Discussion of Advance Directives occurred with: Patient Does the patient have a Living Will? No Does the patient have Health Care Power of Plan Nurse? No Full Code 03/18/2012 9:39 AM 03/19/2012 3:39 PM This order reflects the patients wishes and were consensually agreed upon. Full Code 05/21/2008 9:16 PM 05/24/2008 6:59 PM Care Teams Hammer Heater Relationship Specialty Start Date End Date Stanford Hansen MD [address] [place] [address] PCP - General Family Medicine 02/23/21 documented as of this encounter
--- OUTSIDE RECORDS SUMMARY | 2023-10-12 22:26 | External Medical Summary | Summary of Care ---
Author Name Unknown Organization [facility] Address [address] [facility] [place] [address] Phone [phone] Care Team Providers Care Intermediate Manager Name Role Phone Stanford Hansen MD Primary Care Provider [phone] Reason for Visit * Reason Onset Date Comments Medication Pre-auth 08/08/2023 Precert In Process 08/08/2023 11 [place] GHP PRA LUENT Precert Denied 08/08/2023 PRALUENT Encounter Details Date Type Department Care Team Description 08/08/2023 Telephone Cardiology, [facility] [address] [place] [phone] Jeane Prescott PA-C [address] [place] [address] Medication Pre-auth; Precert In Process (1... Allergies Active Allergy Reactions Severity Noted Date Comments Iodinated Contrast Media Chills/rigors 09/23/20 10 Niacin Er 07/21/2012 Rash Statins 05/27/2007 MYALGIAS documented as of this encounter (statuses as of 08/26/2023) Medications Medication Sig Dispensed Refills Start Date [...] Extended Release 24 Hour (Imdur)Indications: Stable angina,Old [place] (myocardial infarction) Take 1 Tab by mouth [...] Hour (toPROL XL)Indications:Stab le angina,Atherosclero sis of [place] coronary artery of [place] heart without angina pectoris,Hx of CABG,Essential hypertension [...] as of this encounter (statuses as of 08/26/2023) Active Problems Problem Noted Date Atrial flutter 01/26/2022 Ischemic cardiomyopathy 01/26/2022 Dyslipidemia, goal LDL below 70 01/26/20 22 Stable angina 03/20/2020 Hypertensive kidney disease with chronic kidney disease stage III 03/19/2020 Overview: HTN + CKD III - conditions have assumed relationship per current coding guidelines Carotid stenosis, non-symptomatic, bilat eral 10/11/2018 Old [place] (myocardial infarction) 6 HTN, goal below 130/80 04/16/2016 S/P CABG x 3 05/14/2014 Hereditary and idiopathic peripheral ovidio ropathy 03/08/2014 Acquired hypothyroidism 08/24/2013 Dyslipidemia 11/14/2009 Overview: Per Lipid Taxonomy. BPH with obstruction/lower urinary tract symptoms Overview: s/p TURP 2/05 documented as of this encounter (statuses as of 08/26/2023) Resolved Problems Problem Noted Date Resolved Date Polyneuropathy in other diseases classified else where 03/20/2020 02/23/2021 Atherosclerotic heart diseas e of [place] coronary artery with other forms of angina pectoris 03/20/2020 02/23/2021 Kidney disease, chronic, stage III (GFR 30-59 ml /min) 05/08/2019 04/11/2020 Overview: Per CKD protocol Stable angina 05/01/2019 05/01/2019 Lyme disease 10/18/2016 11/05/2017 CAD (coronary artery disease) 09/19/2016 Atherosclerosis of [place] co ronary artery without angina pectoris 10/17/2015 04/15/2020 Overview: More specific code in use. Stable angina 08/06/2015 11/05/2017 Statin intolerance 04/26/2014 04/05/2021 SBE (subacute bacterial endocarditis) prophylaxi s candidate 03/23/2013 11/05/2017 Asymptomatic carotid artery stenosis 12/14/2011 10/11/2018 Carotid stenosis, non-symptomatic 12/11/2011 02/29/2012 Overview: Carotid Stenting For High Surgical-Risk Patients. PI: Mario Encinas ext: [phone] pager [phone] CRC: Iris Frost ext. [phone] pager [phone] Blancas's esophagus 02/28/2010 05/12/2021 HYPOTHYROIDISM NOS 05/21/2008 04/22/2017 Gastroesophageal reflux disease without esophagi tis 02/01/2008 02/23/2021 EXAMINATION OF PARTICIPANT IN CLINICAL TRIAL - G ENOMICS 08/02/2007 03/14/2010 Overview: Renamed Per Clinical Trials Billing Project. Study Title: Genomic Markers for Patients with Cardiovascular Disease Project #: [id number] PI: Kaity Liu MD [phone] GENOMICS CARDIO RESEARCH OTHER*[id number] 200601/05/2017 Overview: Renamed Per Clinical Trials Billing Project. Study Title: Genomic Markers for Patients with Cardiovascular Disease Project #: [id number] PI: Kaity Liu MD [phone] Examination of participant in clinical trial 08/04/2008 Overview: [facility] [place][id number] PI: Ta SC: Anita Manzo This study [...] as of this encounter (statuses as of 08/26/2023) Immunizations Name Administration Dates Next Due COVID-19 mRNA, LNP-s, No Pre serve, 2-Dose Series (Orckestra) 03/13/2021,02/20/2021 Pneumococcal Conjugate Vacc, 13 Valent (Prevnar) [...] EDT Lipid panel back. LDL increased. Called correction to see if patient is actually taking Praluent. Nurse if out of the office today, will call back tomorrow Lo Gomez Pharm D Clinical Pharmacist Cardiology 08/25/2023,10:54 AM * Telephone Encounter - Lo Gomez RPh - 08/13/2023 2:56 PM EDT Physician may complete a peer to peer within 24 hours by calling [phone]. NO UPDATED LDL New or re-auth: Re-authorization Approved/Denied: Denied Drug Name and Formulation: PRALUENT 75 MG ML How Prescribed(directions/sig): INJECT EVERY 14 DAYS Day Supply: 2 PER Did you receive insurance information from outside the chart? No, received insurance information within the chart Valid auth start date: N/A Valid auth end date: N/A Rx Insurance Info: [employer] GOLD Rx Benefits Verified through/on date: [facility] 07/2023 Referral (TE) received from: [facility] Patient needs updated lipid panel. Last was 04/2022 Patient currently at [facility]. Spoke with nurse Simon. Will fax over lipid panel order. [phone] Once results received, will resubmit [place] Gomez Pharm D Clinical Pharmacist Cardiology 08/13/2023,2:57 PM * Telephone Encounter - Emi Lawrence CPhT - 08/08/2023 9:53 AM EDT New or re-auth: re-auth Patient Jonh Fonseca needs a prior authorization for their Praluent through their [employer] insurance. ID: [id number] BIN:[id number] PCN:[id number] Target ship date is 08/12. Thank you very much, Emi Lawrence Check Services Clerk Pharmacy Technicians [facility] 08/08/2023,9:54 AM documented in this encounter Plan of Treatment Upcoming Encounters Date Type Specialty Care Team Description 08/30/2023 Office Visit Cardiology Gabi Mcmillan PA-C [address] [place] [address] [place] [address] Scheduled Orders Name Type Priority Associated Diagnoses [...] C Screening 1963 CKD HGB USE SMARTSET 05326 02/11/202102/11, 04/20/2019, 01/17/2019, Additional history exists CKD PHOS USE SMARTSET 58969 03/20/2021 03/20/2020 COVID-19 Vaccine (3 - Pfizer [...] this encounter Medical Devices Implanted Type Area Driver Engineer Device Identifier Shelf Expiration Date Model / Serial / Lot Stent Aclnk 7-17x30 [id number] - [id number] Implanted:Qty: 1 on 03/18/2012 at OR [facility] [place] Right: Carotid GUIDANT 05/28/2013 [id number] / / [id number] documented as of this encounter Visit Diagnoses [...] the patient have Health Care Power of Senior Hr Generalist? No Code Status History Code Status Date Activated Date Inactivated Comments Full Code 09/19/2016 10:30 AM 09/19/2016 6:27 PM Th is order reflects the patients wishes and were consensually agreed upon. Question Answer Comments Discussion of Advance Directives occurred with: Patient Does the patient have a Living Will? No Does the patient have Health Care Power of Senior Hr Generalist? No Full Code 03/18/2012 9:39 AM 03/19/2012 3:39 PM This order reflects the patients wishes and were consensually agreed upon. Full Code 05/21/2008 9:16 PM 05/24/2008 6:59 PM Care Teams Intermediate Manager Relationship Specialty Start Date End Date Stanford Hansen MD [address] [place] [address] PCP - General Family Medicine 02/23/21 documented as of this encounter
--- OUTSIDE RECORDS SUMMARY | 2023-10-12 22:26 | External Medical Summary | Summary of Care ---
Author Name Unknown Organization [facility] Address [address] [facility] [place] [address] Phone [phone] Care Team Providers Care Desulfurizer Operator Name Role Phone Stanford Hansen MD Primary Care Provider [phone] Reason for Visit * Reason Onset Date Comments Medication Pre-auth 08/08/2023 Precert In Process 08/08/2023 11 [place] GHP PRA LUENT Precert Denied 08/08/2023 PRALUENT Pre Cert/Prior Auth 08/08/2023 Please re-richards bmit now that lipid panel done Encounter Details Date Type Department Care Team Description 08/08/2023 Telephone Cardiology, [facility] [address] [place] [phone] Jeane Prescott, ATILIO [address] [place] [phone] Medication Pre-auth; Precert In Process (1... Allergies Active Allergy Reactions Severity Noted Date Comments Iodinated Contrast Media Chills/rigors 09/23/20 10 Niacin Er 07/21/2012 Rash Statins 05/27/2007 MYALGIAS documented as of this encounter (statuses as of 08/27/2023) Medications Medication Sig Dispensed Refills Start Date [...] Hour (toPROL XL)Indications:Stab le angina,Atherosclero sis of [place] coronary artery of [place] heart without angina pectoris,Hx of CABG,Essential hypertension [...] as of this encounter (statuses as of 08/27/2023) Active Problems Problem Noted Date Atrial flutter [...] as of this encounter (statuses as of 08/27/2023) Resolved Problems Problem Noted Date Resolved Date Polyneuropathy in other diseases classified else where 03/20/2020 02/23/2021 Atherosclerotic heart diseas e of [place] coronary artery with other forms of angina pectoris 03/20/2020 02/23/2021 Kidney disease, chronic, stage III (GFR 30-59 ml /min) 05/08/2019 04/11/2020 Overview: Per CKD protocol Stable angina 05/01/2019 05/01/2019 Lyme disease 10/18/2016 11/05/2017 CAD (coronary artery disease) 09/19/2016 Atherosclerosis of [place] co ronary artery without angina pectoris 10/17/2015 04/15/2020 Overview: More specific code in use. Stable angina 08/06/2015 11/05/2017 Statin intolerance 04/26/2014 04/05/2021 SBE (subacute bacterial endocarditis) prophylaxi s candidate 03/23/2013 11/05/2017 Asymptomatic carotid artery stenosis 12/14/2011 10/11/2018 Carotid stenosis, non-symptomatic 12/11/2011 02/29/2012 Overview: Carotid Stenting For High Surgical-Risk Patients. PI: Mario Encinas ext: [phone] pager [phone] CRC: Iris Frost ext. [phone] pager [phone] Blancas's esophagus 02/28/2010 05/12/2021 HYPOTHYROIDISM NOS 05/21/2008 04/22/2017 Gastroesophageal reflux disease without esophagi tis 02/01/2008 02/23/2021 EXAMINATION OF PARTICIPANT IN CLINICAL TRIAL - G ENOMICS 08/02/2007 03/14/2010 Overview: Renamed Per Clinical Trials Billing Project. Study Title: Genomic Markers for Patients with Cardiovascular Disease Project #: [id number] PI: Kaity Liu MD [phone] GENOMICS CARDIO RESEARCH OTHER*[id number] 200601/05/2017 Overview: Renamed Per Clinical Trials Billing Project. Study Title: Genomic Markers for Patients with Cardiovascular Disease Project #: [id number] PI: Kaity Liu MD [phone] Examination of participant in clinical trial 08/04/2008 Overview: [facility] registry #[id number] PI: Ta SC: Anita Manzo This study [...] as of this encounter (statuses as of 08/27/2023) Immunizations Name Administration Dates Next Due COVID-19 [...] Miscellaneous Notes * Telephone Encounter - Lo Gomez, [facility] - 08/25/2023 10:54 AM EDT Lipid panel back. LDL increased. Called [facility], they state patient has been out of [...] to peer within 24 hours by calling [phone]. NO UPDATED LDL New or re-auth: Re-authorization Approved/Denied: Denied Drug Name and Formulation: PRALUENT 75 MG ML How Prescribed(directions/sig): INJECT EVERY 14 DAYS Day Supply: 2 PER Did you receive insurance information from outside the chart? No, received insurance information within the chart Valid auth start date: N/A Valid auth end date: N/A Rx Insurance Info: [employer] GOLD Rx Benefits Verified through/on date: [facility] 07/2023 Referral (TE) received from: [facility] Patient needs updated lipid panel. Last was 04/2022 Patient currently at [facility]. Spoke with nurse Simon. Will fax over lipid panel order. [phone] Once results received, will resubmit [place] Clinical Pharmacist Cardiology 08/13/2023,2:57 PM * Telephone Encounter - Emi Lawrence CPhT - 08/08/2023 9:53 AM EDT New or re-auth: re-auth Patient Jonh Fonseca needs a prior authorization for their Praluent through their [employer] insurance. ID: [id number] BIN:[id number] PCN:[id number] Target ship date is 08/12. Thank you very much, Emi Lawrence Mattress Finisher Pharmacy Technicians [facility] 08/08/2023,9:54 AM documented in this encounter Plan of Treatment Upcoming Encounters Date Type Specialty Care Team Description 08/30/2023 Office Visit Cardiology Gabi Mcmillan PA-C [address] [place] [id number] Scheduled Orders Name Type Priority Associated Diagnoses Orde r Schedule LIPID PANEL WITH DIRECT LDL IF TG IS HIGH Lab Routine Dyslipidemia, goal LDL below 70 Expected: 08/13/2023, Expires: 08/13/2024 Scheduled Procedures Name Priority Associated Diagnoses Date/Ti pa COLONOSCOPY FLEXIBLE PROXIMAL DIAGNOSTIC Recall History of colon polyps ESOPHAGOGASTRODUODENOSCOPY ( EGD), FLEXIBLE, TRANSORAL, DIAGNOSTIC Recall Blancas's esophagus Health Maintenance Due Date Last Done Comments Albumin/Creatinine Ratio 1963 Hepatitis C Screening 1963 CKD HGB USE SMARTSET 16197 02/11/202102/11, 04/20/2019, 01/17/2019, Additional history exists CKD PHOS USE SMARTSET 59629 03/20/2021 03/20/2020 COVID-19 Vaccine (3 - Pfizer [...] this encounter Medical Devices Implanted Type Area Family Service Aide Device Identifier Shelf Expiration Date Model / Serial / Lot Stent Aclnk 7-17x30 [id number] - [id number] Implanted:Q[place] 1 [place] [facility] [place]: Carotid GUIDANT 05/28/2013 [id number] / / [id number] documented as of this encounter Visit Diagnoses [...] the patient have Health Care Power of Hand Meat Salter? No Code Status History Code Status Date Activated Date Inactivated Comments Full Code 09/19/2016 10:30 AM 09/19/2016 6:27 PM Th is order reflects the patients wishes and were consensually agreed upon. Question Answer Comments Discussion of Advance Directives occurred with: Patient Does the patient have a Living Will? No Does the patient have Health Care Power of Hand Meat Salter? No Full Code 03/18/2012 9:39 AM 03/19/2012 3:39 PM This order reflects the patients wishes and were consensually agreed upon. Full Code 05/21/2008 9:16 PM 05/24/2008 6:59 PM Care Teams Desulfurizer Operator Relationship Specialty Start Date End Date Stanford Hansen MD [address] [place] [address] PCP - General Family Medicine 02/23/21 documented as of this encounter
[2023-10-13] MEDS: LEVOTHYROXINE SODIUM 75 MCG TABLET PO SCH (06:04)
[2023-10-13 07:38] LABS: Basophils # (auto) 0.03 K/uL (0.00-0.20); Basophils % (auto) 0.3 %; Eosinophils # (auto) 0.34 K/uL (0.00-0.50); Eosinophils % (auto) 3.5 %; Hematocrit (blood only) 39.9 % (42.0-52.0); Hemoglobin 13.3 g/dl (14.0-18.0); Immature Granulocytes # (auto) 0.06 K/uL (0.01-0.20); Immature Granulocytes % (auto) 0.6 %; Lymphocytes % (auto) 23.5 %; Mean Corpuscular Hemoglobin 30.8 pg (25.0-34.0); Mean Corpuscular Hgb Conc 33.3 g/dL (32.0-36.0); Mean Corpuscular Volume 92.4 fL (80.0-100.0); Mean Platelet Volume 11.7 fL (9.4-12.4); Monocytes # (auto) 1.07 K/uL (0.11-0.59); Monocytes % (auto) 10.9 %; Neutrophils # (auto) 5.98 K/uL (1.40-6.50); Neutrophils % (auto) 61.2 %; Platelet Count 211 K/uL (130-400); RDW Coefficient of Variation 13.4 % (11.5-14.5); RDW Standard Deviation 45.8 fL (36.4-46.3); Red Blood Count 4.32 M/uL (4.70-6.10); White Blood Count 9.78 K/ul (4.8-10.8)
[2023-10-13] MEDS: ENOXAPARIN INJ 40 MG/0.4 ML SYR SQ SCH (08:20)
[2023-10-13] MEDS: ASPIRIN 81 MG ECTAB PO SCH (08:20)
[2023-10-13] MEDS: METOPROLOL TARTRATE 25 MG TAB PO SCH ×2 (08:20→20:15)
[2023-10-13] MEDS: ISOSORBIDE MONO EXTENDED REL 60 MG TABCR PO SCH (08:20)
[2023-10-13] MEDS: CLOPIDOGREL BISULFATE 75 MG TAB PO SCH (08:21)
[2023-10-13 08:51] LABS: Anion Gap 7 (3-11); BUN Creatinine Ratio 12.2 (10-20); Blood Urea Nitrogen 10 mg/dl (6-23); Calcium 9.5 mg/dl (8.6-10.3); Carbon Dioxide 25 mmol/L (21-32); Chloride 108 mmol/L (98-107); Est GFR (African American) 97.5 ml/min; Est GFR (Non-African American) 84.1 ml/min; Glucose 105 mg/dl (70-99(Fasting)); Potassium 3.5 mmol/L (3.5-5.1); Sodium 140 mmol/L (136-145)
[2023-10-13] MEDS: MEMANTINE HCL 10 MG TAB PO SCH (12:34)
--- NOTE | 2023-10-13 14:58 | Hospitalist Progress Note ---
Date of Service October 13, 2023 Assessment & Plan (1) AMS (altered mental status): Plan: Suspected acute toxic encephalopathy possibly from inadvertent administration of his roommates medications while at [facility]. Now resolved. Continue supportive care. IV fluids have been discontinued. Diet has been started by speech therapy. Avoid all PHP WORDPRESS DEVELOPER depressants. No evidence of occult infection (2) Alzheimer's dementia: Plan: Supportive care. All PHP [employer]ORD[employer] DEVELOPER medications have been discontinued. Namenda however was restarted today, October 13 (3) CAD (coronary artery disease): Plan: Stable. Continue current medical management (4) GERD (gastroesophageal reflux disease): Plan: Stable. Continue PPI (5) BPH (benign prostatic hyperplasia): Plan: Stable. Continue Flomax (6) Hypothyroidism: Plan: Stable. Continue Synthroid (7) Atrial flutter: Plan: Chronic. Rate controlled with metoprolol. Held initially this hospitalization but restarted today, October 12. He is not on systemic anticoagulation due to frequent falls. Telemetry Plan Anticipate discharge to rehab facility when arrangements are finalized Admission and Anticipated Discharge Date Admission Date: October 10, 2023 Subjective He remains alert and oriented. No new problems. OT and PT have recommended rehab placement. This is pending. Namenda has been restarted. Review of Systems 2 Review of Systems: Constitutional-no fever or chills ENT-no blurred vision, no double vision, no epistaxis, no sore throat Respiratory-no cough, no wheezing, no shortness of breath Cardiac-no palpitations, no chest pain, no syncope GI-no nausea, vomiting, diarrhea, melena, hematochezia -no urinary retention, no urinary incontinence, no dysuria, no hematuria Musculoskeletal-no joint pain, no muscle tenderness Skin-no bruising, no rashes, no pruritus Neuro-no isolated weakness, no paresthesia, no weakness Psych-no depression, no anxiety Physical Exam 2 Physical Exam: General-alert and oriented to name and place. No fever HEENT-head atraumatic and normocephalic, pupils equal and reactive to light, extraocular muscles intact Neck-no lymphadenopathy or thyromegaly, trachea midline Chest-clear to auscultation percussion. No rales, wheezing or rhonchi Cardiac-regular rate and rhythm, normal S1 and S2 Abdomen-normal bowel sounds, nontender, no hepatosplenomegaly Extremities-no cyanosis, clubbing, or edema Neuro-cranial nerves II through XII intact. No apparent focal motor deficits. Oriented to name and place. Normal strength. Psych-normal affect Results & Data Results & Data Vital Signs (Past 12 Hours) Vital Signs Temp Pulse Resp BP Pulse Ox O2 Del Method 10/13/23 11:17 36.6 C 67 18 92/55 L 97 Room Air 10/13/23 08:13 36.7 C 70 18 144/77 H 97 Room Air 10/13/23 07:30 Room Air Laboratory Results 10/13/23 07:09 10/13/23 07:09 PG Care Time/CCT Total # of Minutes Spent Total Time Spent with Patient: Total time spent is greater than 50% in coordination of care (as documented) at patient's floor/unit and/or counseling patient: Coding Level of Care Code 45740 SUB INP/OBS CARE 2/35MIN Diagnoses AMS (altered mental status) R41.82 Alzheimer's dementia G30.9; F02.80 CAD (coronary artery disease) I25.10 GERD (gastroesophageal reflux disease) K21.9 BPH (benign prostatic hyperplasia) N40.0 Hypothyroidism E03.9 Atrial flutter I48.4 Atrial flutter type: atypical (7) Atrial flutter Atrial flutter type: atypical Qualified Code(s): I48.4 - Atypical atrial flutter
[2023-10-14] MEDS: LEVOTHYROXINE SODIUM 75 MCG TABLET PO SCH (05:47)
[2023-10-14] MEDS: CLOPIDOGREL BISULFATE 75 MG TAB PO SCH (07:35)
[2023-10-14] MEDS: ENOXAPARIN INJ 40 MG/0.4 ML SYR SQ SCH (07:35)
[2023-10-14] MEDS: ASPIRIN 81 MG ECTAB PO SCH (07:35)
[2023-10-14] MEDS: METOPROLOL TARTRATE 25 MG TAB PO SCH ×2 (07:36→20:09)
[2023-10-14] MEDS: MEMANTINE HCL 10 MG TAB PO SCH (07:36)
[2023-10-14] MEDS: ISOSORBIDE MONO EXTENDED REL 60 MG TABCR PO SCH (07:36)
[2023-10-14 08:03] LABS: Est GFR (African American) 85.7 ml/min; Est GFR (Non-African American) 73.9 ml/min
--- NOTE | 2023-10-14 17:24 | Hospitalist Progress Note ---
Date of Service October 14, 2023 Assessment & Plan (1) AMS (altered mental status): Plan: Suspected acute toxic encephalopathy possibly from inadvertent administration of his roommates medications while at [facility]. Now resolved. Continue supportive care. IV fluids have been discontinued. Avoid all INTERNET DEVELOPER depressants. No evidence of occult infection (2) Alzheimer's dementia: Plan: Supportive care. All INTERNET DEVELOPER medications have been discontinued. Namenda however was restarted on October 13 (3) CAD (coronary artery disease): Plan: Stable. Continue current medical management (4) GERD (gastroesophageal reflux disease): Plan: Stable. Continue PPI (5) BPH (benign prostatic hyperplasia): Plan: Stable. Continue Flomax (6) Hypothyroidism: Plan: Stable. Continue Synthroid (7) Atrial flutter: Plan: Chronic. Rate controlled with metoprolol. Held initially this hospitalization but restarted on October 12. He is not on systemic anticoagulation due to frequent falls. Telemetry Plan Anticipate discharge to rehab facility when arrangements are finalized Admission and Anticipated Discharge Date Admission Date: October 10, 2023 Subjective Alert. No new problems. Vital signs are stable. Awaiting determination whether he can go to [facility] Review of Systems 2 Review of Systems: Constitutional-no fever or chills ENT-no blurred vision, no double vision, no epistaxis, no sore throat Respiratory-no cough, no wheezing, no shortness of breath Cardiac-no palpitations, no chest pain, no syncope GI-no nausea, vomiting, diarrhea, melena, hematochezia -no urinary retention, no urinary incontinence, no dysuria, no hematuria Musculoskeletal-no joint pain, no muscle tenderness Skin-no bruising, no rashes, no pruritus Neuro-no isolated weakness, no paresthesia, no weakness Psych-no depression, no anxiety Physical Exam 2 Physical Exam: General-alert and oriented to name and place. No fever HEENT-head atraumatic and normocephalic, pupils equal and reactive to light, extraocular muscles intact Neck-no lymphadenopathy or thyromegaly, trachea midline Chest-clear to auscultation percussion. No rales, wheezing or rhonchi Cardiac-regular rate and rhythm, normal S1 and S2 Abdomen-normal bowel sounds, nontender, no hepatosplenomegaly Extremities-no cyanosis, clubbing, or edema Neuro-cranial nerves II through XII intact. No apparent focal motor deficits. Oriented to name and place. Normal strength. Psych-normal affect Results & Data Results & Data Vital Signs (Past 12 Hours) Vital Signs Temp Pulse Resp BP Pulse Ox O2 Del Method 10/14/23 15:42 36.5 C 67 18 115/67 97 Room Air 10/14/23 11:06 36.6 C 79 18 101/56 L 96 Room Air 10/14/23 07:42 Room Air 10/14/23 07:01 36.5 C 68 19 144/91 H 99 Room Air Laboratory Results 10/13/23 07:09 10/14/23 07:13 PG Care Time/CCT Total # of Minutes Spent Total Time Spent with Patient: Total time spent is greater than 50% in coordination of care (as documented) at patient's floor/unit and/or counseling patient: Coding Level of Care Code 79782 SUB INP/OBS CARE 2/35MIN Diagnoses AMS (altered mental status) R41.82 Alzheimer's dementia G30.9; F02.80 CAD (coronary artery disease) I25.10 GERD (gastroesophageal reflux disease) K21.9 BPH (benign prostatic hyperplasia) N40.0 Hypothyroidism E03.9 Atrial flutter I48.4 Atrial flutter type: atypical (7) Atrial flutter Atrial flutter type: atypical Qualified Code(s): I48.4 - Atypical atrial flutter
[2023-10-15] MEDS: LEVOTHYROXINE SODIUM 75 MCG TABLET PO SCH (06:07)
[2023-10-15] MEDS: ASPIRIN 81 MG ECTAB PO SCH (08:23)
[2023-10-15] MEDS: ENOXAPARIN INJ 40 MG/0.4 ML SYR SQ SCH (08:24)
[2023-10-15] MEDS: CLOPIDOGREL BISULFATE 75 MG TAB PO SCH (08:24)
[2023-10-15] MEDS: MEMANTINE HCL 10 MG TAB PO SCH (08:24)
[2023-10-15] MEDS: METOPROLOL TARTRATE 25 MG TAB PO SCH ×2 (08:24→20:32)
[2023-10-15] MEDS: ISOSORBIDE MONO EXTENDED REL 60 MG TABCR PO SCH (08:24)
--- NOTE | 2023-10-15 14:11 | Hospitalist Progress Note ---
Date of Service October 15, 2023 Assessment & Plan (1) AMS (altered mental status): Plan: Suspected acute toxic encephalopathy possibly from inadvertent administration of his roommates medications while at [facility]. Now resolved. Continue supportive care. IV fluids have been discontinued. Avoid all COMMISSARY SUPERINTENDENT depressants. No evidence of occult infection (2) Alzheimer's dementia: Plan: Supportive care. All COMMISSARY SUPERINTENDENT medications have been discontinued. Namenda, however, was restarted on October 13 (3) CAD (coronary artery disease): Plan: Stable. Continue current medical management (4) GERD (gastroesophageal reflux disease): Plan: Stable. Continue PPI (5) BPH (benign prostatic hyperplasia): Plan: Stable. Continue Flomax (6) Hypothyroidism: Plan: Stable. Continue Synthroid (7) Atrial flutter: Plan: Chronic. Rate controlled with metoprolol. Held initially this hospitalization but restarted on October 12. He is not on systemic anticoagulation due to frequent falls. Telemetry Plan SNF placement when arrangements are finalized. Insurance has denied IPR placement Admission and Anticipated Discharge Date Admission Date: October 10, 2023 Subjective Medically stable overall. Peer to peer was completed today but insurance still denied rehab placement. Case management pursuing other SNF options. Heart rate and blood pressure are acceptable. Continue supportive care. Review of Systems 2 Review of Systems: Constitutional-no fever or chills ENT-no blurred vision, no double vision, no epistaxis, no sore throat Respiratory-no cough, no wheezing, no shortness of breath Cardiac-no palpitations, no chest pain, no syncope GI-no nausea, vomiting, diarrhea, melena, hematochezia -no urinary retention, no urinary incontinence, no dysuria, no hematuria Musculoskeletal-no joint pain, no muscle tenderness Skin-no bruising, no rashes, no pruritus Neuro-no isolated weakness, no paresthesia, no weakness Psych-no depression, no anxiety Physical Exam 2 Physical Exam: General-alert and oriented to name and place. No fever HEENT-head atraumatic and normocephalic, pupils equal and reactive to light, extraocular muscles intact Neck-no lymphadenopathy or thyromegaly, trachea midline Chest-clear to auscultation percussion. No rales, wheezing or rhonchi Cardiac-regular rate and rhythm, normal S1 and S2 Abdomen-normal bowel sounds, nontender, no hepatosplenomegaly Extremities-no cyanosis, clubbing, or edema Neuro-cranial nerves II through XII intact. No apparent focal motor deficits. Oriented to name and place. Normal strength. Psych-normal affect Results & Data Results & Data Vital Signs (Past 12 Hours) Vital Signs Temp Pulse Pulse Pulse Resp BP Pulse Ox 10/15/23 10:53 36.5 C 92 H 16 93/55 L 97 10/15/23 09:37 60 10/15/23 07:37 36.6 C 56 L 16 117/75 97 10/15/23 07:29 10/15/23 03:13 36.7 C 80 18 152/88 H 98 O2 Del Method 10/15/23 10:53 Room Air 10/15/23 09:37 10/15/23 07:37 Room Air 10/15/23 07:29 Room Air 10/15/23 03:13 Room Air Laboratory Results 10/13/23 07:09 10/14/23 07:13 PG Care Time/CCT Total # of Minutes Spent Total Time Spent with Patient: Total time spent is greater than 50% in coordination of care (as documented) at patient's floor/unit and/or counseling patient: Coding Level of Care Code 35036 SUB INP/OBS CARE 3/50MIN Diagnoses AMS (altered mental status) R41.82 Alzheimer's dementia G30.9; F02.80 CAD (coronary artery disease) I25.10 GERD (gastroesophageal reflux disease) K21.9 BPH (benign prostatic hyperplasia) N40.0 Hypothyroidism E03.9 Atrial flutter I48.4 Atrial flutter type: atypical (7) Atrial flutter Atrial flutter type: atypical Qualified Code(s): I48.4 - Atypical atrial flutter
--- NOTE | 2023-10-15 17:47 | XRay Report ---
XR chest 2V PA/lateral CLINICAL HISTORY: Fall. COMPARISON STUDY: Chest CT September 17, 2016. Chest radiograph October 10, 2023. FINDINGS: Median sternotomy wires and mediastinal surgical clips are noted. There is moderate cardiom egaly without evidence for pulmonary edema. No pneumothorax or pleural effusion is present. No airspa ce opacities are present. Mild lower lung interstitial thickening is likely chronic. IMPRESSION: No acute cardiopulmonary findings. Cardiomegaly. ACT 112: Negative or not required by law. Electronically signed by: Finesse Lara M.D. 10/15/2023 5:46 PM
[2023-10-15] MEDS ORDERED: MELATONIN 3 MG TAB PO PRN (19:30)
[2023-10-15] MEDS ORDERED: traZODone HCL 50 MG TAB PO ONE (21:53)
[2023-10-16] MEDS: LEVOTHYROXINE SODIUM 75 MCG TABLET PO SCH (06:08)
[2023-10-16] MEDS: CLOPIDOGREL BISULFATE 75 MG TAB PO SCH (09:15)
[2023-10-16] MEDS: ENOXAPARIN INJ 40 MG/0.4 ML SYR SQ SCH (09:15)
[2023-10-16] MEDS: MEMANTINE HCL 10 MG TAB PO SCH (09:15)
[2023-10-16] MEDS: ISOSORBIDE MONO EXTENDED REL 60 MG TABCR PO SCH (09:16)
[2023-10-16] MEDS: ASPIRIN 81 MG ECTAB PO SCH (09:16)
[2023-10-16] MEDS: METOPROLOL TARTRATE 25 MG TAB PO SCH (09:17)
[2023-10-16] MEDS ORDERED: ALUMINUM/MAGNESIUM SUSP 30 ML UDC PO PRN (10:08)
[2023-10-16] MEDS ORDERED: ACETAMINOPHEN 325 MG TAB PO PRN (10:09)
[2023-10-16] MEDS: PANTOprazole 40 MG TAB PO SCH (10:44)
[2023-10-16] MEDS ORDERED: NITROGLYCERIN SL 0.4 MG/TAB TAB SL PRN (11:57)
--- NOTE | 2023-10-16 12:50 | Hospitalist Progress Note ---
Date of Service October 16, 2023 Assessment & Plan (1) AMS (altered mental status): Plan: Suspected acute toxic encephalopathy possibly from inadvertent administration of his roommates medications while at [facility]. Now resolved. He has baseline dementia though. Continue supportive care. IV fluids have been discontinued. Avoid all BILLET BED OPERATOR depressants. No evidence of occult infection (2) Alzheimer's dementia: Plan: Supportive care. All BILLET BED OPERATOR medications have been discontinued. Namenda, however, was restarted on October 13 (3) CAD (coronary artery disease): Plan: Stable. Continue current medical management (4) GERD (gastroesophageal reflux disease): Plan: Stable. Continue PPI (5) BPH (benign prostatic hyperplasia): Plan: Stable. Continue Flomax. Sanz catheter apparently was placed in the ED and will be removed before discharge (6) Hypothyroidism: Plan: Stable. Continue Synthroid (7) Atrial flutter: Plan: Chronic. Rate controlled with metoprolol. Held initially this hospitalization but restarted on October 12. He is not on systemic anticoagulation due to frequent falls. Telemetry Plan SNF placement when arrangements are finalized. Insurance has denied IPR placement Admission and Anticipated Discharge Date Admission Date: October 10, 2023 Subjective Alert. No acute distress. Sanz catheter draining clear urine. I attempted to call the daughter to see if he has a Sanz catheter at home but there was no answer. Hopefully this can be discontinued soon. Insurance denied IPR placement. Other arrangements are being pursued by case management Review of Systems 2 Review of Systems: Constitutional-no fever or chills ENT-no blurred vision, no double vision, no epistaxis, no sore throat Respiratory-no cough, no wheezing, no shortness of breath Cardiac-no palpitations, no chest pain, no syncope GI-no nausea, vomiting, diarrhea, melena, hematochezia -no urinary retention, no urinary incontinence, no dysuria, no hematuria Musculoskeletal-no joint pain, no muscle tenderness Skin-no bruising, no rashes, no pruritus Neuro-no isolated weakness, no paresthesia, no weakness Psych-no depression, no anxiety. He appears to have baseline dementia Physical Exam 2 Physical Exam: General-alert and oriented to name and place. No fever HEENT-head atraumatic and normocephalic, pupils equal and reactive to light, extraocular muscles intact Neck-no lymphadenopathy or thyromegaly, trachea midline Chest-clear to auscultation percussion. No rales, wheezing or rhonchi Cardiac-regular rate and rhythm, normal S1 and S2 Abdomen-normal bowel sounds, nontender, no hepatosplenomegaly Extremities-no cyanosis, clubbing, or edema Neuro-cranial nerves II through XII intact. No apparent focal motor deficits. Oriented to name and place. Normal strength. Psych-normal affect . Baseline dementia Results & Data Results & Data Vital Signs (Past 12 Hours) Vital Signs Temp Pulse Pulse Pulse Resp BP BP 10/16/23 11:15 36.3 C L 87 18 103/68 10/16/23 08:16 36.3 C L 72 125/73 10/16/23 07:49 10/16/23 07:21 104 H 10/16/23 03:00 36.5 C 71 18 136/79 Pulse Ox O2 Del Method 10/16/23 11:15 98 Room Air 10/16/23 08:16 99 Room Air 10/16/23 07:49 Room Air 10/16/23 07:21 10/16/23 03:00 95 Room Air Laboratory Results 10/13/23 07:09 10/14/23 07:13 PG Care Time/CCT Total # of Minutes Spent Total Time Spent with Patient: Total time spent is greater than 50% in coordination of care (as documented) at patient's floor/unit and/or counseling patient: Coding Level of Care Code 69115 SUB INP/OBS CARE 2/35MIN Diagnoses AMS (altered mental status) R41.82 Alzheimer's dementia G30.9; F02.80 CAD (coronary artery disease) I25.10 GERD (gastroesophageal reflux disease) K21.9 BPH (benign prostatic hyperplasia) N40.0 Hypothyroidism E03.9 Atrial flutter I48.4 Atrial flutter type: atypical (7) Atrial flutter Atrial flutter type: atypical Qualified Code(s): I48.4 - Atypical atrial flutter
[2023-10-16] MEDS: ACETAMINOPHEN 500 MG TAB PO PRN (15:10)
[2023-10-16] MEDS ORDERED: DIVALPROEX DELAY RELEASE 125 MG TABEC PO SCH (21:00)
[2023-10-16] MEDS: traZODone HCL 50 MG TAB PO SCH (21:48)
[2023-10-16] MEDS: TAMSULOSIN HCL 0.4 MG CAP PO SCH (21:49)
[2023-10-16] MEDS: METOPROLOL SUCC 25MG EXT REL TAB PO SCH (21:50)
[2023-10-17] MEDS: LEVOTHYROXINE SODIUM 75 MCG TABLET PO SCH (06:00)
[2023-10-17 06:47] LABS: Creatinine Clr Calc Pharmacy 67.4 ml/min; Est GFR (African American) 95.6 ml/min; Est GFR (Non-African American) 82.5 ml/min
[2023-10-17] MEDS: FINASTERIDE 5 MG TAB PO SCH (08:29)
[2023-10-17] MEDS: ISOSORBIDE MONO EXTENDED REL 60 MG TABCR PO SCH (08:29)
[2023-10-17] MEDS: ASPIRIN 81 MG ECTAB PO SCH (08:29)
[2023-10-17] MEDS: METOPROLOL SUCC 25MG EXT REL TAB PO SCH ×2 (08:29→21:11)
[2023-10-17] MEDS: MEMANTINE HCL 10 MG TAB PO SCH (08:29)
[2023-10-17] MEDS: ESCITALOPRAM OXALATE 10 MG TAB PO SCH (08:30)
[2023-10-17] MEDS: EZETIMIBE 10 MG TAB PO SCH (08:30)
[2023-10-17] MEDS: VIBEGRON 75 MG TAB PO SCH (08:30)
[2023-10-17] MEDS: MULTIVITAMIN TAB PO SCH (08:31)
[2023-10-17] MEDS: DIVALPROEX SODIUM SPRINKLE/DEL-REL 125 MG CAP PO SCH ×2 (08:31→21:10)
[2023-10-17] MEDS: CLOPIDOGREL BISULFATE 75 MG TAB PO SCH (08:32)
[2023-10-17] MEDS: ENOXAPARIN INJ 40 MG/0.4 ML SYR SQ SCH (08:32)
[2023-10-17] MEDS: OMEGA-3 (PURIFIED FISH OIL) 1 GM CAP PO SCH (08:32)
[2023-10-17] MEDS: PANTOprazole 40 MG TAB PO SCH (08:32)
[2023-10-17] MEDS: CHOLECALCIFEROL 1,000 UNITS 25 MCG TAB PO SCH (08:33)
[2023-10-17] MEDS ORDERED: NON-FORMULARY MEDICATION (Omeprazole 20 mg capsule,delayed release(DR/EC)) PO SCH (09:00)
--- NOTE | 2023-10-17 13:30 | Hospitalist Progress Note ---
Date of Service October 17, 2023 Assessment & Plan (1) AMS (altered mental status): Plan: Suspected acute toxic encephalopathy possibly from inadvertent administration of his roommates medications while at [facility]. Now resolved. He has baseline dementia though. Continue supportive care. IV fluids have been discontinued. Avoid all VALLEZ FILTER OPERATOR depressants. No evidence of occult infection (2) Alzheimer's dementia: Plan: Supportive care. All VALLEZ FILTER OPERATOR medications have been discontinued. Namenda, however, was restarted on October 13 (3) CAD (coronary artery disease): Plan: Stable. Continue current medical management (4) GERD (gastroesophageal reflux disease): Plan: Stable. Continue PPI (5) BPH (benign prostatic hyperplasia): Plan: Stable. Continue Flomax. Sanz catheter apparently was placed in the ED and was removed today, October 17. (6) Hypothyroidism: Plan: Stable. Continue Synthroid (7) Atrial flutter: Plan: Chronic. Rate controlled with metoprolol. Held initially this hospitalization but restarted on October 12. He is not on systemic anticoagulation due to frequent falls. Telemetry Plan SNF placement when arrangements are finalized. Insurance has denied IPR placement Admission and Anticipated Discharge Date Admission Date: October 10, 2023 Subjective The patient became agitated this morning at the time of transfer to room 377. Sanz catheter has been removed. I attempted to call his daughter Kendy at 1:30 PM but there was no answer. Case management is working on SNF placement. Insurance denied inpatient rehab. Review of Systems 2 Review of Systems: Constitutional-no fever or chills ENT-no blurred vision, no double vision, no epistaxis, no sore throat Respiratory-no cough, no wheezing, no shortness of breath Cardiac-no palpitations, no chest pain, no syncope GI-no nausea, vomiting, diarrhea, melena, hematochezia -no urinary retention, no urinary incontinence, no dysuria, no hematuria Musculoskeletal-no joint pain, no muscle tenderness Skin-no bruising, no rashes, no pruritus Neuro-no isolated weakness, no paresthesia, no weakness Psych-no depression, no anxiety. He appears to have baseline dementia Physical Exam 2 Physical Exam: General-alert and oriented to name and place. No fever HEENT-head atraumatic and normocephalic, pupils equal and reactive to light, extraocular muscles intact Neck-no lymphadenopathy or thyromegaly, trachea midline Chest-clear to auscultation percussion. No rales, wheezing or rhonchi Cardiac-regular rate and rhythm, normal S1 and S2 Abdomen-normal bowel sounds, nontender, no hepatosplenomegaly Extremities-no cyanosis, clubbing, or edema Neuro-cranial nerves II through XII intact. No apparent focal motor deficits. Oriented to name and place. Normal strength. Psych-normal affect . Baseline dementia Results & Data Results & Data Vital Signs (Past 12 Hours) Vital Signs Temp Pulse Resp BP Pulse Ox O2 Del Method 10/17/23 11:00 36.9 C 88 16 116/73 99 Room Air 10/17/23 07:18 36.4 C L 88 16 116/62 97 Room Air 10/17/23 03:00 36.6 C 68 20 129/85 98 Room Air Laboratory Results 10/13/23 07:09 10/17/23 05:48 PG Care Time/CCT Total # of Minutes Spent Total Time Spent with Patient: Total time spent is greater than 50% in coordination of care (as documented) at patient's floor/unit and/or counseling patient: Coding Level of Care Code 53334 SUB INP/OBS CARE 2/35MIN Diagnoses AMS (altered mental status) R41.82 Alzheimer's dementia G30.9; F02.80 CAD (coronary artery disease) I25.10 GERD (gastroesophageal reflux disease) K21.9 BPH (benign prostatic hyperplasia) N40.0 Hypothyroidism E03.9 Atrial flutter I48.4 Atrial flutter type: atypical (7) Atrial flutter Atrial flutter type: atypical Qualified Code(s): I48.4 - Atypical atrial flutter
[2023-10-17] MEDS: traZODone HCL 50 MG TAB PO SCH (21:12)
[2023-10-17] MEDS: TAMSULOSIN HCL 0.4 MG CAP PO SCH (21:12)
[2023-10-17] MEDS: ACETAMINOPHEN 500 MG TAB PO PRN (21:13)
[2023-10-18] MEDS ORDERED: MoRPHine SULFATE 2 MG/ML CARP IV STA (00:23)
[2023-10-18] MEDS ORDERED: LIDOCAINE 5% 1 PATCH TD STA (00:24)
[2023-10-18] MEDS: LEVOTHYROXINE SODIUM 75 MCG TABLET PO SCH (05:45)
[2023-10-18] MEDS: CLOPIDOGREL BISULFATE 75 MG TAB PO SCH (08:39)
[2023-10-18] MEDS: ISOSORBIDE MONO EXTENDED REL 60 MG TABCR PO SCH (08:39)
[2023-10-18] MEDS: PANTOprazole 40 MG TAB PO SCH (08:39)
[2023-10-18] MEDS: ASPIRIN 81 MG ECTAB PO SCH (08:39)
[2023-10-18] MEDS: OMEGA-3 (PURIFIED FISH OIL) 1 GM CAP PO SCH (08:39)
[2023-10-18] MEDS: MULTIVITAMIN TAB PO SCH (08:39)
[2023-10-18] MEDS: MEMANTINE HCL 10 MG TAB PO SCH (08:39)
[2023-10-18] MEDS: DIVALPROEX DELAY RELEASE 125 MG TABEC PO SCH ×2 (08:39→21:15)
[2023-10-18] MEDS: EZETIMIBE 10 MG TAB PO SCH (08:39)
[2023-10-18] MEDS: VIBEGRON 75 MG TAB PO SCH (08:39)
[2023-10-18] MEDS: METOPROLOL SUCC 25MG EXT REL TAB PO SCH ×2 (08:40→21:15)
[2023-10-18] MEDS: ESCITALOPRAM OXALATE 10 MG TAB PO SCH (08:41)
[2023-10-18] MEDS: CHOLECALCIFEROL 1,000 UNITS 25 MCG TAB PO SCH (08:54)
[2023-10-18] MEDS: ENOXAPARIN INJ 40 MG/0.4 ML SYR SQ SCH (08:55)
[2023-10-18] MEDS: FINASTERIDE 5 MG TAB PO SCH (12:16)
--- NOTE | 2023-10-18 14:34 | Hospitalist Progress Note ---
Date of Service October 18, 2023 Assessment & Plan (1) AMS (altered mental status): Plan: Suspected acute toxic encephalopathy possibly from inadvertent administration of his roommates medications while at [facility]. Now resolved. He has baseline dementia though. Continue supportive care. IV fluids have been discontinued. Avoid all COLLATERAL SPECIALIST depressants. No evidence of occult infection (2) Alzheimer's dementia: Plan: Supportive care. All COLLATERAL SPECIALIST medications have been discontinued. Namenda, however, was restarted on October 13 (3) CAD (coronary artery disease): Plan: Stable. Continue current medical management (4) GERD (gastroesophageal reflux disease): Plan: Stable. Continue PPI (5) BPH (benign prostatic hyperplasia): Plan: Stable. Continue Flomax. Sanz catheter apparently was placed in the ED and was removed today, October 17. (6) Hypothyroidism: Plan: Stable. Continue Synthroid (7) Atrial flutter: Plan: Chronic. Rate controlled with metoprolol. Held initially this hospitalization but restarted on October 12. He is not on systemic anticoagulation due to frequent falls. Telemetry Plan Discharge to [facility] tomorrow, October 19. Insurance has denied IPR placement Admission and Anticipated Discharge Date Admission Date: October 10, 2023 Subjective No new problems. Medically stable. Arrangements have been finalized for discharge to [facility] tomorrow, October 19 Review of Systems 2 Review of Systems: Constitutional-no fever or chills ENT-no blurred vision, no double vision, no epistaxis, no sore throat Respiratory-no cough, no wheezing, no shortness of breath Cardiac-no palpitations, no chest pain, no syncope GI-no nausea, vomiting, diarrhea, melena, hematochezia -no urinary retention, no urinary incontinence, no dysuria, no hematuria Musculoskeletal-no joint pain, no muscle tenderness Skin-no bruising, no rashes, no pruritus Neuro-no isolated weakness, no paresthesia, no weakness Psych-no depression, no anxiety. He appears to have baseline dementia Physical Exam 2 Physical Exam: General-alert and oriented to name and place. No fever HEENT-head atraumatic and normocephalic, pupils equal and reactive to light, extraocular muscles intact Neck-no lymphadenopathy or thyromegaly, trachea midline Chest-clear to auscultation percussion. No rales, wheezing or rhonchi Cardiac-regular rate and rhythm, normal S1 and S2 Abdomen-normal bowel sounds, nontender, no hepatosplenomegaly Extremities-no cyanosis, clubbing, or edema Neuro-cranial nerves II through XII intact. No apparent focal motor deficits. Oriented to name and place. Normal strength. Psych-normal affect . Baseline dementia Results & Data Results & Data Vital Signs (Past 12 Hours) Vital Signs Temp Pulse Resp BP Pulse Ox O2 Del Method 10/18/23 07:25 36.8 C 63 16 111/64 97 Room Air Laboratory Results 10/13/23 07:09 10/17/23 05:48 PG Care Time/CCT Total # of Minutes Spent Total Time Spent with Patient: Total time spent is greater than 50% in coordination of care (as documented) at patient's floor/unit and/or counseling patient: Coding Level of Care Code 71671 SUB INP/OBS CARE 2/35MIN Diagnoses AMS (altered mental status) R41.82 Alzheimer's dementia G30.9; F02.80 CAD (coronary artery disease) I25.10 GERD (gastroesophageal reflux disease) K21.9 BPH (benign prostatic hyperplasia) N40.0 Hypothyroidism E03.9 Atrial flutter I48.4 Atrial flutter type: atypical (7) Atrial flutter Atrial flutter type: atypical Qualified Code(s): I48.4 - Atypical atrial flutter
[2023-10-18] MEDS: TAMSULOSIN HCL 0.4 MG CAP PO SCH (21:16)
[2023-10-18] MEDS: traZODone HCL 50 MG TAB PO SCH (21:18)
[2023-10-19] MEDS: LEVOTHYROXINE SODIUM 75 MCG TABLET PO SCH (06:03)
[2023-10-19] MEDS: PANTOprazole 40 MG TAB PO SCH (09:39)
[2023-10-19] MEDS: OMEGA-3 (PURIFIED FISH OIL) 1 GM CAP PO SCH (09:39)
[2023-10-19] MEDS: EZETIMIBE 10 MG TAB PO SCH (09:39)
[2023-10-19] MEDS: DIVALPROEX DELAY RELEASE 125 MG TABEC PO SCH (09:40)
[2023-10-19] MEDS: ISOSORBIDE MONO EXTENDED REL 60 MG TABCR PO SCH (09:40)
[2023-10-19] MEDS: METOPROLOL SUCC 25MG EXT REL TAB PO SCH (09:40)
[2023-10-19] MEDS: VIBEGRON 75 MG TAB PO SCH (09:40)
[2023-10-19] MEDS: CLOPIDOGREL BISULFATE 75 MG TAB PO SCH (09:40)
[2023-10-19] MEDS: CHOLECALCIFEROL 1,000 UNITS 25 MCG TAB PO SCH (09:40)
[2023-10-19] MEDS: MEMANTINE HCL 10 MG TAB PO SCH (09:40)
[2023-10-19] MEDS: MULTIVITAMIN TAB PO SCH (09:40)
[2023-10-19] MEDS: ESCITALOPRAM OXALATE 10 MG TAB PO SCH (09:40)
[2023-10-19] MEDS: ASPIRIN 81 MG ECTAB PO SCH (09:40)
[2023-10-19] MEDS: ENOXAPARIN INJ 40 MG/0.4 ML SYR SQ SCH (09:41)
[2023-10-19] MEDS: FINASTERIDE 5 MG TAB PO SCH (09:41)
--- NOTE | 2023-10-19 12:10 | Discharge Summary ---
Date of Service October 19, 2023 Admission HPI Per Admitting Provider Jonh is a 77-year-old male with past medical history of GERD, CAD s/p CABG x3, a flutter, hypertension, hypothyroidism, PCI with coronary stents who is a [facility] resident who presented with lethargy after multiple medications were confused between residence at [facility] the prior evening. Did discuss this directly with [facility] staff per the report: During second shift last night pt had an 'accident' where he fell and was extremely confused and incontinent of stool. Was very weak. - Was placed in recliner chair. - Normal cognitive baseline is normally very confused with moderate dementia not normally oriented to year, month but is intermittently oriented to place. His biggest change in status with his energy, is normally active and is not lethargic or sedate at baseline - Per nursing the meds his ROOMMATE got were incorrect so it is possible he and his roommates switched meds but this not known for sure. Roommate is on lorazepam 1mg and oxycodone. Due to the situation they have reached out in our lab to fax the complete med list for Mr. Fonseca's roommate which is pending - Confirm DNR/DNI. Attempting to contact daughter by same # we have and no callback as of yet. At time of hospitalist evaluation Jonh is improved from initial ER exam. Post Narcan his pupils are slightly contracted, but reactive to light rise by report were previously pinpoint and unreactive. He awakens to voice and is able to give his name and that he is in "[facility] ". Shuttle Spotter strength is intact bilaterally. Does withdraw to soft touch in the hands and feet bilaterally. Has had a Sanz placed but unfortunately this was with difficult placement and has sanguinous output. Pending bladder scan and irrigation at time of bedside visit. Limited history due to sedation and cognitive status. He reports he is not sure why he is in the hospital or what happened, and does not remember events preceding his arrival to the hospital. He reports he does have a history of heart stents and is on heart medicine but is not able to verbalize what this is. He does not know if he is on a blood thinner History limited by cognitive status, pending reconciliation fax from [facility]. He has a signed DNR/DNI on file which is confirmed by their facility over the phone. Update: Med list obtained of patient's roommate. Name redacted for privacy. Atorvastatin Carbidopalevodopa 60968 Finasteride Lasix 40 Vitamin D Metoprolol 25 mg hs succinate Protonix 40 mg Flomax 0.4 mg Tylenol 325 mg Glycopyrrolate as needed for secretions Promethazine Ativan 1 mg as needed Oxycodone 5 mg as needed Principal Diagnosis acute encephalopathy Discharge Exam The patient is awake, alert and oriented 3, well developed and well nourished, normocephalic and atraumatic, lying in bed and in no acute distress. HEENT--PERRL, EOMI, mucous membranes and oropharynx mildly dry Neck--supple. No JVD. No bruits. Thyroid normal, trachea midline, no adenopathy. Heart--normal S1 and S2. No murmurs, rubs or gallops. Lungs--clear bilaterally, no respiratory distress, no accessory muscle use. Abdomen--normal bowel sounds and soft. Extremities--no cyanosis or clubbing. No edema. Dermatologic--normal skin turgor, normal color, no abnormal lymph nodes, no rash. Neurologic--cranial nerves II through XII grossly intact. Rheumatologic--normal range of motion. Psychiatric--normal affect. Discharge Data Allergies Allergy/AdvReac Type Severity Reaction Status Date / Time niacin Allergy Mild RASH Verified 08/26/23 09:45 Iodinated Contrast Media Allergy Unknown UNKNOWN Verified 08/26/23 09:45 atorvastatin [From Lipitor] AdvReac Unknown INTOLERANT Verified 08/26/23 09:45 Ordered Studies 10/10/23 09:35 CT head/brain wo con Stat Hospital Course (1) AMS (altered mental status): Suspected acute toxic encephalopathy possibly from inadvertent administration of his roommates medications while at [facility]. Now resolved. He has baseline dementia though. Continue supportive care. IV fluids have been discontinued. Avoid all HOME HEALTH CAREGIVER depressants. No evidence of occult infection (2) Alzheimer's dementia: Supportive care. All [employer] HE[employer] CAREGIVER medications have been discontinued. Namenda, however, was restarted on October 13 (3) CAD (coronary artery disease): Stable. Continue current medical management (4) GERD (gastroesophageal reflux disease): Stable. Continue PPI (5) BPH (benign prostatic hyperplasia): Stable. Continue Flomax. Sanz catheter apparently was placed in the ED and was removed today, October 17. (6) Hypothyroidism: Stable. Continue Synthroid (7) Atrial flutter: Chronic. Rate controlled with metoprolol. Held initially this hospitalization but restarted on October 12. He is not on systemic anticoagulation due to freq uent falls. Telemetry Plan Discharge to [facility] tomorrow, October 19. Insurance has denied IPR placement Total Time Total Time Spent Total Time Spent (In Minutes): 35 Discharge Plan Discharge Items Patient Disposition: Transfer Inpatient Rehab Fac Reason For Visit: AMS Discharge Diagnosis: Toxic encephalopathy, bradycardia Condition on Discharge: Fair Activity: Resume your previous activity Non-emergency contact: Primary Care Provider Call non-emergency contact if: you have any medication questions and your symptoms worsen Follow-up/Referrals: Isamar Rodriguez MD [Primary Care Provider] - Diet: Regular and Heart Healthy Addtl Attending Provider Instructions: All HOME HEALTH CAREGIVER affecting medications have been discontinued except for Namenda Pending Studies at Discharge: No Stand-Alone Forms: My [facility] Skilled Items Patient informed of condition?: Yes DNR: Yes Discharge Level of Care: Skilled Communicable Disease: No Discharge Prognosis: Stable Lines: None Urinary Catheter: No Medications and DC Order Prescriptions: New melatonin 3 mg Tablet 3 mg PO HS PRN (Reason: sleep) Qty: 0 0RF memantine [Namenda] 10 mg Tablet 10 mg PO QAM Qty: 0 0RF Gemtesa 75 mg Tablet 75 mg PO DAILY Qty: 1 0RF Continued cholecalciferol (vitamin D3) 25 mcg (1,000 unit) capsule 25 mcg PO DAILY Qty: 90 3RF metoprolol succinate 25 mg tablet extended release 24 hr 12.5 mg PO BID Qty: 90 1RF isosorbide mononitrate 60 mg tablet extended release 24 hr 60 mg PO DAILY Qty: 28 11RF levothyroxine 75 mcg tablet 75 mcg PO DAILY Qty: 90 1RF fenofibrate micronized 200 mg capsule 200 mg PO DAILY Qty: 90 1RF finasteride 5 mg tablet 5 mg PO DAILY Qty: 90 1RF trazodone 150 mg tablet 150 mg PO HS Qty: 90 1RF tamsulosin 0.4 mg capsule 0.4 mg PO HS Qty: 90 1RF divalproex 125 mg tablet,delayed release (DR/EC) 125 mg PO BID aspirin [Adult Low Dose Aspirin] 81 mg tablet,delayed release (DR/EC) 81 mg PO DAILY clopidogrel 75 mg tablet 75 mg PO DAILY ezetimibe 10 mg tablet 10 mg PO DAILY omega 4-[id number]-zzt-fish oil [Fish Oil] 1,000 mg (120 mg-180 mg) capsule 3 cap PO DAILY acetaminophen 500 mg tablet 500 mg PO Q4H MDD 3g PRN (Reason: fever or pain) nitroglycerin 0.4 mg tablet, sublingual 0.4 mg sublingual .COMPLEX PRN (Reason: chest pain) Rx Instructions: 0.4 mg sublingual [id number] PRN; do not exceed 3 doses per episode multivitamin with folic acid [Daily-Sathya (with folic acid)] 400 mcg tablet 1 tab PO DAILY Praluent Pen 75 mg/mL pen injector 75 mg SUBCUT .[id number] Discontinued escitalopram oxalate [Lexapro] 5 mg tablet 5 mg PO DAILY Qty: 90 1RF Myrbetriq 50 mg tablet extended release 24 hr 50 mg PO DAILY Qty: 30 11RF memantine 10 mg tablet See Rx Instructions .ROUTE .COMPLEX Qty: 56 5RF Dose Instruction: TAKE 1 TABLET BY MOUTH TWICE DAILY (DEMENTIA) Rx Instructions: TAKE 1 TABLET BY MOUTH TWICE DAILY (DEMENTIA) omeprazole 20 mg capsule,delayed release(DR/EC) 20 mg PO DAILY Qty: 90 1RF Discharge Orders: Discharge Order (Routine); Ordered 10/19/23 Ordered By: Sudarshan Bran Admission Data Admit Date/Time: 10/10/23 13:00 Attending Provider: Sudarshan Bran Admit Provider: Ariel Sparks Primary Care Provider: Isamar Rodriguez Other Providers: [facility]; [place]; Abdiaziz Sorensen [facility] [place]; Arturo Morris Other Interventions: Discharge Summary Assessment (RN) Last Done: 10/19/23 11:56 Coding Level of Care Code 39426 INP/OBS DISCH >30 MIN Diagnoses AMS (altered mental status) R41.82 Alzheimer's dementia G30.9; F02.80 CAD (coronary artery disease) I25.10 GERD (gastroesophageal reflux disease) K21.9 BPH (benign prostatic hyperplasia) N40.0 Hypothyroidism E03.9 Atrial flutter I48.4 Atrial flutter type: atypical Time Spent (min) 35
== END 2023-10-19 13:32 | DRG 917 ==
LOC: ED 09:08 → 2S 13:00 → SUATTDRO 13:00 → 2S 15:21 → 3N 10-17 11:01